=== PATIENT | female | born 1955 | race African-American/Black ===

== ENCOUNTER 2020-06-29 12:33 | Outpatient (REF) | payer OTHER, SELFPAY ==
[2020-06-29 14:07] LABS: Alanine Aminotransferase 13 U/L (0-31); Albumin Level 4.3 g/dL (3.5-5.0); Alkaline Phosphatase 80 U/L (39-117); Anion Gap 11 (12-20); Aspartate Amino Transferase 17 U/L (5-31); Bilirubin Total 0.8 mg/dL (0.0-1.0); Blood Urea Nitrogen 20 mg/dL (9-16); Calcium 9.5 mg/dL (8.4-10.2); Carbon Dioxide 29 mmol/L (22-29); Chloride 106 mmol/L (96-108); Estimated Glomerular Filt Rate > 60; Glucose Random 81 mg/dL (60-115); Potassium 4.2 mmol/L (3.3-5.1); Sodium 142 mmol/L (135-145)
[2020-07-04 13:22] LABS: Vitamin D 25-OH, D2 <4 ng/mL; Vitamin D 25-OH, D3 12 ng/mL; Vitamin D 25-OH, Total 12 ng/mL (30-100)
== END 2020-06-29 12:34 | disposition home or self-care (01) ==
LOC: HO.LAB 12:33
PROVIDERS: PCP Internal Medicine; Visit Provider Student in an Organized Health Care Education/Training Program
DX: M81.0 Age-related osteoporosis without current pathological fracture (principal); M17.0 Bilateral primary osteoarthritis of knee; Z88.5 Allergy status to narcotic agent; Z88.0 Allergy status to penicillin; Z88.2 Allergy status to sulfonamides; Z79.899 Other long term (current) drug therapy
CPT/HCPCS: 36415; 80053; 82306; 99212

== ENCOUNTER 2020-12-11 11:00 | Outpatient (REF) | payer OTHER, SELFPAY ==
--- NOTE | ~2020-12-11 | XR_ITS ---
EXAMINATION: CR X-RAY HAND BILATERAL. CLINICAL INFORMATION: Joint pain. COMPARISON: None TECHNIQUE: 3 views each of the bilateral hands were obtained. FINDINGS: Left: Mild to interphalangeal degenerative joint changes are seen. Moderate first carpometacarpal degenerative joint changes are seen. There is no acute fracture or dislocation. The carpal bones are normally aligned. The distal radius and ulna are intact. The soft tissues are unremarkable. Right: Minimal distal interphalangeal degenerative joint changes are seen most pronounced in the second digit. There is no acute fracture or dislocation. The carpal bones are normally aligned. The distal radius and ulna are intact. The soft tissues are unremarkable. XR/XR hand LT min 3V IMPRESSION: Degenerative joint changes bilaterally, more pronounced in the left hand suggest osteoarthritis.
--- NOTE | ~2020-12-11 | XR_ITS ---
EXAMINATION: CR X-RAY HAND BILATERAL. CLINICAL INFORMATION: Joint pain. COMPARISON: None TECHNIQUE: 3 views each of the bilateral hands were obtained. FINDINGS: Left: Mild to interphalangeal degenerative joint changes are seen. Moderate first carpometacarpal degenerative joint changes are seen. There is no acute fracture or dislocation. The carpal bones are normally aligned. The distal radius and ulna are intact. The soft tissues are unremarkable. Right: Minimal distal interphalangeal degenerative joint changes are seen most pronounced in the second digit. There is no acute fracture or dislocation. The carpal bones are normally aligned. The distal radius and ulna are intact. The soft tissues are unremarkable. XR/XR hand RT min 3V IMPRESSION: Degenerative joint changes bilaterally, more pronounced in the left hand suggest osteoarthritis.
== END 2020-12-11 11:01 | disposition home or self-care (01) ==
LOC: HO.XRAY 11:00
PROVIDERS: PCP Internal Medicine; Visit Provider Nurse Practitioner Family
DX: M25.541 Pain in joints of right hand (principal); M25.542 Pain in joints of left hand; M81.0 Age-related osteoporosis without current pathological fracture; M17.0 Bilateral primary osteoarthritis of knee
CPT/HCPCS: 73130; 99212

== ENCOUNTER 2021-01-14 12:54 | Outpatient (REF) | payer OTHER, SELFPAY ==
[2021-01-14 16:33] LABS: Alanine Aminotransferase 18 U/L (0-31); Albumin Level 4.3 g/dL (3.5-5.0); Alkaline Phosphatase 83 U/L (39-117); Anion Gap 12 (12-20); Aspartate Amino Transferase 20 U/L (5-31); Bilirubin Total 0.7 mg/dL (0.0-1.0); Blood Urea Nitrogen 13 mg/dL (9-16); Calcium 9.6 mg/dL (8.4-10.2); Carbon Dioxide 27 mmol/L (22-29); Chloride 105 mmol/L (96-108); Estimated Glomerular Filt Rate > 60; Glucose Random 84 mg/dL (60-115); Potassium 4.1 mmol/L (3.3-5.1); Sodium 140 mmol/L (135-145); Total Protein 7.1 g/dL (6.5-8.0)
[2021-01-14 16:48] LABS: Vitamin D 25-OH Total 10.4 ng/mL (>30)
== END 2021-01-14 12:55 | disposition home or self-care (01) ==
LOC: HO.LAB 12:54
PROVIDERS: PCP Internal Medicine; Visit Provider Nurse Practitioner Family
DX: M17.0 Bilateral primary osteoarthritis of knee (principal); M81.0 Age-related osteoporosis without current pathological fracture; M25.541 Pain in joints of right hand; M25.542 Pain in joints of left hand
CPT/HCPCS: 36415; 80053; 82306; 99212

== ENCOUNTER 2021-07-23 10:31 | Outpatient (REF) | payer OTHER, SELFPAY ==
[2021-07-23 12:53] LABS: Alanine Aminotransferase 19 U/L (0-31); Albumin Level 4.2 g/dL (3.5-5.0); Alkaline Phosphatase 88 U/L (39-117); Anion Gap 12 (12-20); Aspartate Amino Transferase 20 U/L (5-31); Bilirubin Total 0.8 mg/dL (0.0-1.0); Blood Urea Nitrogen 18 mg/dL (9-16); Calcium 9.6 mg/dL (8.4-10.2); Carbon Dioxide 28 mmol/L (22-29); Chloride 106 mmol/L (96-108); Estimated Glomerular Filt Rate > 60; Glucose Random 81 mg/dL (60-115); Potassium 4.2 mmol/L (3.3-5.1); Sodium 142 mmol/L (135-145); Total Protein 7.1 g/dL (6.5-8.0)
[2021-07-23 13:15] LABS: Vitamin D 25-OH Total 9.9 ng/mL (>30)
== END 2021-07-23 10:32 | disposition home or self-care (01) ==
LOC: HO.LAB 10:31
PROVIDERS: PCP Internal Medicine; Visit Provider Nurse Practitioner Family
DX: M81.0 Age-related osteoporosis without current pathological fracture (principal); M17.0 Bilateral primary osteoarthritis of knee; M79.642 Pain in left hand; M79.641 Pain in right hand; Z79.890 Hormone replacement therapy
CPT/HCPCS: 36415; 80053; 82306; 99212

== ENCOUNTER → 2021-07-30 15:55 | Outpatient (BNVA) | payer OTHER, SELFPAY | PROVIDERS: PCP Internal Medicine; Visit Provider Nurse Practitioner Family | DX: M17.0 Bilateral primary osteoarthritis of knee (principal); M25.549 Pain in joints of unspecified hand; M25.511 Pain in right shoulder; M19.90 Unspecified osteoarthritis, unspecified site; M47.812 Spondylosis without myelopathy or radiculopathy, cervical region; M47.816 Spondylosis without myelopathy or radiculopathy, lumbar region; M81.0 Age-related osteoporosis without current pathological fracture; M62.830 Muscle spasm of back | CPT/HCPCS: 99202 ==

== ENCOUNTER 2021-08-27 14:38 | Outpatient (REF) | payer OTHER, SELFPAY ==
--- NOTE | ~2021-08-27 | XR_ITS ---
EXAMINATION: XR KNEE, RIGHT XR KNEE, LEFT CLINICAL INFORMATION: Bilateral knee pain COMPARISON: Bilateral knee radiographs 05/14/2016. TECHNIQUE: Examination is imaged in 3 views. There are total of 6 views. FINDINGS: Right: Normal bony mineralization. No fracture, dislocation, or joint effusion. There is mild narrowing medial knee joint compartment, increased since prior exam 05/14/2016. No erosive change. No definite chondrocalcinosis. Axial view patella shows no lateralization or tilting or joint narrowing. No is borderline spurring at quadriceps insertion follow-up, not previously demonstrated. Left: Normal bony mineralization. No fracture, dislocation, or joint effusion. There is borderline narrowing medial knee joint compartment. No erosive change. No definite chondrocalcinosis. Axial view patella shows no lateralization or tilting or joint narrowing. XR/XR knee LT 3V IMPRESSION: Right: -Mild narrowing medial knee joint compartment, increased from prior exam 2017. -Borderline spurring at quadriceps insertion patella, new. Left: -Borderline narrowing medial knee joint compartment.
--- NOTE | ~2021-08-27 | XR_ITS ---
EXAMINATION: XR KNEE, RIGHT XR KNEE, LEFT CLINICAL INFORMATION: Bilateral knee pain COMPARISON: Bilateral knee radiographs 05/14/2016. TECHNIQUE: Examination is imaged in 3 views. There are total of 6 views. FINDINGS: Right: Normal bony mineralization. No fracture, dislocation, or joint effusion. There is mild narrowing medial knee joint compartment, increased since prior exam 05/14/2016. No erosive change. No definite chondrocalcinosis. Axial view patella shows no lateralization or tilting or joint narrowing. No is borderline spurring at quadriceps insertion follow-up, not previously demonstrated. Left: Normal bony mineralization. No fracture, dislocation, or joint effusion. There is borderline narrowing medial knee joint compartment. No erosive change. No definite chondrocalcinosis. Axial view patella shows no lateralization or tilting or joint narrowing. XR/XR knee RT 3V IMPRESSION: Right: -Mild narrowing medial knee joint compartment, increased from prior exam 2017. -Borderline spurring at quadriceps insertion patella, new. Left: -Borderline narrowing medial knee joint compartment.
== END 2021-08-27 14:39 | disposition home or self-care (01) ==
LOC: HO.XRAY 14:38
PROVIDERS: PCP Internal Medicine; Visit Provider Nurse Practitioner Family
DX: M17.0 Bilateral primary osteoarthritis of knee (principal); M25.511 Pain in right shoulder
CPT/HCPCS: 73562; 99212

== ENCOUNTER → 2021-09-06 10:57 | Outpatient (BNVA) | payer OTHER, SELFPAY | PROVIDERS: PCP Internal Medicine; Visit Provider Nurse Practitioner Family | DX: M25.551 Pain in right hip (principal) | CPT/HCPCS: Q3014 ==

== ENCOUNTER 2021-09-09 11:25 | Outpatient (REF) | payer OTHER, SELFPAY ==
--- NOTE | ~2021-09-09 | XR_ITS ---
EXAMINATION: XR HIP, RIGHT CLINICAL INFORMATION: Pain. COMPARISON: None TECHNIQUE: Two views of the right hip. AP view pelvis FINDINGS: AP pelvis: There is normal symmetry of bilateral hip joints and SI joints. No visible fracture or dislocation seen. No bony abnormality seen involving the pelvic bones. Right hip: The right hip joint space is maintained normal. No bony erosive changes, loose bodies, fracture or dislocation. The soft tissues are normal. XR/XR hip RT w PEL1V IMPRESSION: Unremarkable AP pelvis and right hip exam.
== END 2021-09-09 11:26 | disposition home or self-care (01) ==
LOC: HO.XRAY 11:25
PROVIDERS: PCP Internal Medicine; Visit Provider Nurse Practitioner Family
DX: M25.551 Pain in right hip (principal)
CPT/HCPCS: 73502

== ENCOUNTER 2021-10-01 14:05 | Outpatient (REF) | payer OTHER, SELFPAY ==
--- NOTE | ~2021-10-01 | XR_ITS ---
EXAMINATION: XR LUMBOSACRAL SPINE WITH OBLIQUES CLINICAL INFORMATION: Lumbar radiculopathy. COMPARISON: None TECHNIQUE: AP, both oblique, and lateral views of the lumbar spine. Lateral view of the lumbosacral junction. FINDINGS: There is normal lumbar lordosis. The vertebral heights are normal. There is grade 1 anterolisthesis L5 over S1. Rest of the vertebral alignment is normal. There is minimal loss of L5-S1 disc level. Rest of the disc heights are normal. On oblique views there is no pars defect No focal lytic or sclerotic process seen. There is mild right L5-S1 facet joint arthropathy. SI joints are symmetrical and normal. Solitary phlebolith is seen in the pelvis. There is acute sacrococcygeal kyphotic deformity likely old injury. XR/XR lumbar spine 4V min IMPRESSION: Grade 1 anterolisthesis L5 over S1 with minimal loss of L5-S1 disc height. No visible acute fracture or dislocation seen. Mild right L5-S1 facet joint arthropathy.
== END 2021-10-01 14:06 | disposition home or self-care (01) ==
LOC: HO.XRAY 14:05
PROVIDERS: PCP Internal Medicine; Visit Provider Psychiatry & Neurology Neurology
DX: M54.16 Radiculopathy, lumbar region (principal)
CPT/HCPCS: 72110

== ENCOUNTER 2021-10-30 14:03 | Outpatient (REF) | payer OTHER, SELFPAY ==
[2021-10-30 14:54] LABS: Alanine Aminotransferase 24 U/L (0-31); Albumin Level 4.4 g/dL (3.5-5.0); Alkaline Phosphatase 87 U/L (39-117); Anion Gap 12 (12-20); Aspartate Amino Transferase 25 U/L (5-31); Bilirubin Total 1.2 mg/dL (0.0-1.0); Blood Urea Nitrogen 14 mg/dL (9-16); Calcium 9.4 mg/dL (8.4-10.2); Carbon Dioxide 27 mmol/L (22-29); Chloride 109 mmol/L (96-108); Estimated Glomerular Filt Rate > 60; Glucose Random 95 mg/dL (60-115); Potassium 4.4 mmol/L (3.3-5.1); Sodium 144 mmol/L (135-145); Total Protein 7.1 g/dL (6.5-8.0)
[2021-10-30 15:13] LABS: Vitamin D 25-OH Total 16.6 ng/mL (>30)
== END 2021-10-30 14:04 | disposition home or self-care (01) ==
LOC: HO.LAB 14:03
PROVIDERS: PCP Internal Medicine; Visit Provider Nurse Practitioner Family
DX: M81.0 Age-related osteoporosis without current pathological fracture (principal)
CPT/HCPCS: 36415; 80053; 82306

== ENCOUNTER → 2022-01-22 11:57 | Outpatient (BNVA) | payer OTHER, SELFPAY | PROVIDERS: PCP Internal Medicine; Visit Provider Nurse Practitioner Family | DX: M81.0 Age-related osteoporosis without current pathological fracture (principal); M17.0 Bilateral primary osteoarthritis of knee; M25.549 Pain in joints of unspecified hand | CPT/HCPCS: 99212 ==

== ENCOUNTER → 2022-09-11 15:23 | Outpatient (BNVA) | payer OTHER, SELFPAY | PROVIDERS: PCP Internal Medicine; Visit Provider Nurse Practitioner Family | DX: M19.041 Primary osteoarthritis, right hand (principal); M19.042 Primary osteoarthritis, left hand; M47.816 Spondylosis without myelopathy or radiculopathy, lumbar region; M81.0 Age-related osteoporosis without current pathological fracture; M17.0 Bilateral primary osteoarthritis of knee | CPT/HCPCS: 99212 ==

== ENCOUNTER 2022-09-17 14:52 | Outpatient (REF) | payer OTHER, SELFPAY ==
[2022-09-17 15:48] LABS: Alanine Aminotransferase 21 U/L (0-31); Albumin Level 4.3 g/dL (3.5-5.0); Alkaline Phosphatase 94 U/L (39-117); Anion Gap 11 (12-20); Aspartate Amino Transferase 22 U/L (5-31); Bilirubin Total 1.1 mg/dL (0.0-1.0); Blood Urea Nitrogen 15 mg/dL (9-16); Calcium 9.6 mg/dL (8.4-10.2); Carbon Dioxide 27 mmol/L (22-29); Chloride 108 mmol/L (96-108); Estimated Glomerular Filt Rate > 60; Glucose Random 85 mg/dL (60-115); Potassium 4.2 mmol/L (3.3-5.1); Sodium 142 mmol/L (135-145)
[2022-09-17 16:10] LABS: Amphetamine Screen Urine Not Detected (Not Detect); Barbiturates, Urine Not Detected (Not Detect); Benzodiazepines Screen Urine Not Detected (Not Detect); Cannabinoid Screen Urine Not Detected (Not Detect); Cocaine Screen Urine Not Detected (Not Detect); Fentanyl, urine Not Detected (Not Detect); Opiate Screen Urine Not Detected (Not Detect); Phencyclidine Screen Urine Not Detected (Not Detect)
[2022-09-23 08:34] LABS: Tramadol, Ur NEGATIVE
[2022-09-23 08:35] LABS: Desmethyltramadol, Ur NEGATIVE
== END 2022-09-17 14:53 | disposition home or self-care (01) ==
LOC: HO.LAB 14:52
PROVIDERS: PCP Internal Medicine; Visit Provider Nurse Practitioner Family
DX: Z51.81 Encounter for therapeutic drug level monitoring (principal); Z79.899 Other long term (current) drug therapy
CPT/HCPCS: 80053; 80307; 80373

== ENCOUNTER 2023-02-25 13:58 | Outpatient (AMB) | payer OTHER, SELFPAY ==
[2023-02-25 14:00] VITALS: BP 90/60; PULSE 74; TEMP 36.1; O2SAT 97; BMI 24.0
--- NOTE | 2023-02-25 14:00 | MHC.OFFVIS ---
Intake Vital Signs 02/25/23 14:00 Height 5 ft 4 in Weight 139 lb 8.842 oz BMI 24.0 BP 90/60 Blood Pressure Location Rt brachial Position Sitting Pulse 74 Pulse Source Pulse Oximeter Temp 97 F Temp Source Skin Pulse Oximetry (%) 97 Oxygen Delivery Method Room Air Intake Visit Reasons: Osteoarthritis Intake Note: Patient presents today to follow up on OA. c/o raymond hand pain. Would like to discuss treatment or therapy. Reports waking up everyday with pain and sweilling. c/o raymond posterior knee pain Director Outpatient Services Required: No Accompanied by: Self / Same As Patient Allergies penicillin V Allergy (Intermediate, Verified 02/25/23 14:03) Rash Sulfa (Sulfonamide Antibiotics) Allergy (Intermediate, Verified 02/25/23 14:03) Rash morphine Allergy (Mild, Verified 02/25/23 14:03) Dizziness HPI HPI Comments History of Present Illness Details Patient is a 67yoF with a PMH of vitiligo, OA in her knees and osteoporosis who presents for follow-up of joint pain. Last seen in January 2022. Patient continues to follow with Dr Carnes in pain management for right sciatic pain, she had a cortisone shot November 17 with good effect. She reports return of her pain in the same spot where she had the injection. Her pain is aching and throbbing in the right lower back and is worse at night. She has an appt with Dr Carnes in October. She is using ice and tramadol for pain control. Patient reports she underwent left knee cap and meniscus surgery with [facility] in March 2022. She stated her pain and swelling post op was worse with physical therapy so she stopped. She states the left knee is feeling better, she denies pain or swelling. She reports that her right knee pain is stable. Patient reports she had a visit with HERB GROWER today. She states she stopped evista and was started on a new medication for osteoporosis today. She is not sure of the name. She reports continued chronic bilateral hand pain that is worse with use due to her osteoarthritis. She admits to stiffness and pain that is worse in the morning. Denies swelling. She continues to manage her symptoms with Tylenol and tramadol. She follows with vascular for varicose veins. [facility] Surgical History Hx of knee surgery H/O arthroscopic knee surgery Hx of section Hx of tonsillectomy Hx of hysterectomy Hx of appendectomy Family History Father Cancer Mother CVD (cardiovascular disease) Social History Alcohol intake: never Patient Tobacco Use Status: Never used Tobacco Review of Systems Const All systems reviewed & are unremarkable except as noted in HPI and below Physical Exam Vital Signs: Last Vital Signs Temp 97 F 02/25/23 14:00 Pulse 74 02/25/23 14:00 BP 90/60 02/25/23 14:00 Pulse Ox 97 02/25/23 14:00 Oxygen Delivery Method Room Air 02/25/23 14:00 BMI result Body Mass Index 24.0 APPEARANCE: Patient in no acute distress EYES: no redness, pupils equal, round and reactive to light, eyelids normal EARS: External ear normal, canal clear and tympanic membrane normal. NOSE/SINUS: Airflow through both nares, no nasal discharge, no bleeding THROAT: Oral mucosa moist, no ulcerations NECK: No thyromegaly or masses, no adenopathy, trachea midline. HEART: Regular rhythm, S1-S2 heard, no murmurs, rubs or gallops. LUNG: Clear to auscultation, respiratory rate regular non-labored ABD: Abdomen soft, nontender. EXTREMITIES: No edema, no calf tenderness, normal peripheral pulses. NEURO: Oriented and alert x3. No focal weakness. Gait normal. SKIN: No inflammatory or neoplastic lesions. Normal color and turgor. Vitiligo. JOINT EXAM:?? Cervical Spine:? Full range of motion without pain; no tenderness. Thoracic Spine:? No scoliosis.? No tenderness on palpation. Lumbar Spine:? Alignment normal.? Pain with flexion and extension in the right lower lumbar area with tenderness to palpation over the right lower back. No erythema, swelling or warmth. Hands: LEFT:? Normal pain-free range of motion without swelling, increased warmth or erythema. Able to make a full fist and has a good housekeeping lead strength. Heberden's nodes in all digits, tenderness to palpation of the DIPs. RIGHT: Normal pain-free range of motion without swelling, increased warmth or erythema. Able to make a full fist and has a good housekeeping lead strength. Slight joint enlargement of MCP 2 and 3. Heberden's noted in all digits, tenderness to palpation of the DIPs. Wrists:? Normal pain-free range of motion without tenderness, swelling, increased warmth or erythema. Elbows: Normal pain-free range of motion without tenderness, swelling, increased warmth or erythema. Shoulders:?? Full range of motion without pain. No tenderness, weakness, swelling, increased warmth or erythema. Hips:? Full range of motion without pain. Hip bursa:? No tenderness. Knees:? LEFT: Normal pain-free range of motion. No tenderness, swelling, increased warmth or erythema.? There is no effusion or crepitation RIGHT: Normal pain-free range of motion without tenderness, swelling, increased warmth or erythema. No effusion or crepitation Ankles:? Normal pain-free range of motion without tenderness, swelling, increased warmth or erythema. Feet:? Normal pain-free range of motion without tenderness, swelling, increased warmth or erythema. Assessment & Plan Assessment & Plan (1) Osteoarthritis of hands, bilateral: Code(s): M19.041 - Primary osteoarthritis, right hand; M19.042 - Primary osteoarthritis, left hand Qualifiers: Osteoarthritis type: primary Qualified Code(s): M19.041 - Primary osteoarthritis, right hand; M19.042 - Primary osteoarthritis, left hand (2) Primary osteoarthritis of knees, bilateral: Code(s): M17.0 - Bilateral primary osteoarthritis of knee Plan: Stable. 25 minute spent reviewing chart, evaluating patient and documenting. (3) Lumbar spondylosis: Code(s): M47.816 - Spondylosis without myelopathy or radiculopathy, lumbar region Plan: Received injection in her lower back with last year with Dr. Carnes with good effect. Now with return of pain. On exam she has tenderness to palpation over the right aspect of the lumbar spine. Recommend patient continue tramadol, heat, stretching and follow-up for injections as scheduled. Plan Patient with continued chronic OA to bilateral hands, knees and lower back. No synovitis on exam. Hand X-rays November 2020 showed degenerative changes bilaterally. Subsequent Xrays for Knees, hip and Pelvis in August 2021 and September 2021 also shows mild OA to the knees and normal for the Hip/Pelvis She will continue tramadol, Tylenol, heat. Advised patient paraffin wax may be helpful for her symptoms. Discussed at length with patient the value of low impact/muscle strengthening exercises and stretching to the joint strength and stability. The last available set of labs from 08/2022 for CBC and CMP were grossly normal. Will update CMP and CBC for next visit. Follow-up 6 months or sooner if needed. Orders: Orders Comprehensive Met. Panel 02/25/23 M19.041 - Primary osteoarthritis, right hand, M19.042 - Primary osteoarthritis, left hand, M25.561 - Pain in right knee, M25.562 - Pain in left knee, M81.0 - Age-related osteoporosis without current pathological fracture Erythrocyte Sedimentation Rate 02/25/23 M19.041 - Primary osteoarthritis, right hand, M19.042 - Primary osteoarthritis, left hand, M25.561 - Pain in right knee, M25.562 - Pain in left knee, M81.0 - Age-related osteoporosis without current pathological fracture C Reactive Protein 02/25/23 M19.041 - Primary osteoarthritis, right hand, M19.042 - Primary osteoarthritis, left hand, M25.561 - Pain in right knee, M25.562 - Pain in left knee, M81.0 - Age-related osteoporosis without current pathological fracture Complete Blood Count Auto Diff 02/25/23 M19.041 - Primary osteoarthritis, right hand, M19.042 - Primary osteoarthritis, left hand, M25.561 - Pain in right knee, M25.562 - Pain in left knee, M81.0 - Age-related osteoporosis without current pathological fracture Vitamin D 25-OH (D2 and D3) 09/18/22 M81.0 - Age-related osteoporosis without current pathological fracture Coding Level of Care Code Est Pt Level 3 (89650) Diagnoses Primary osteoarthritis of both hands M19.041; M19.042 Osteoarthritis type: primary Primary osteoarthritis of knees, bilateral M17.0 Lumbar spondylosis M47.816
== END 2023-02-25 14:46 | disposition home or self-care (01) ==
PROVIDERS: PCP Internal Medicine; Visit Provider Nurse Practitioner Family
DX: M19.041 Primary osteoarthritis, right hand (principal); M19.042 Primary osteoarthritis, left hand; M17.0 Bilateral primary osteoarthritis of knee; M47.816 Spondylosis without myelopathy or radiculopathy, lumbar region
CPT/HCPCS: 99213

== ENCOUNTER → 2023-02-25 13:58 | Outpatient (BNVA) | payer OTHER, SELFPAY | PROVIDERS: PCP Internal Medicine; Visit Provider Nurse Practitioner Family | DX: M17.0 Bilateral primary osteoarthritis of knee (principal); M19.041 Primary osteoarthritis, right hand; M19.042 Primary osteoarthritis, left hand; M47.816 Spondylosis without myelopathy or radiculopathy, lumbar region | CPT/HCPCS: 99212 ==

== ENCOUNTER 2023-08-26 13:00 | Outpatient (REF) | payer OTHER, SELFPAY ==
--- NOTE | ~2023-08-26 | MR_ITS ---
EXAMINATION: MR LUMBAR SPINE WITHOUT CONTRAST CLINICAL INFORMATION: Lumbar radiculopathy. Right lower extremity pain. COMPARISON: Lumbar spine radiograph 10/01/2021. TECHNIQUE: MRI of the lumbar spine was obtained using routine sequences without contrast. FINDINGS: There is slight grade 1 anterolisthesis of L5 on S1. Alignment is otherwise normal. Vertebral body heights are preserved. There are type II degenerative endplate changes at L5-S1. Bone marrow signal intensity is otherwise unremarkable. There is disc desiccation at multiple levels without substantial loss of intervertebral disc height. The tip of the conus medullaris is located at L1. No mass effect on the conus. Visualized distal cord signal intensity is normal. At L1-L2 there is a right central annular fissure associated with a slightly bulging disc. No canal stenosis. No mass effect on the traversing or foraminal nerve roots. At L2-L3 there is a left subarticular to foraminal protrusion superimposed upon a bulging disc. Bilateral facet degenerative change. No canal stenosis. Subtle abutment of the left traversing L3 nerve roots. No foraminal nerve root compression. At L3-L4 there is a bulging disc. Bilateral facet degenerative change. No canal stenosis. No mass effect on the traversing or foraminal nerve roots. At L4-L5 there is an asymmetrically bulging disc to the left. Bilateral facet degenerative change. No canal stenosis. Asymmetric narrowing of the left subarticular zone causes abutment and possible compression of the left traversing L5 nerve roots. No foraminal nerve root compression. At L5-S1 there is a diffusely bulging disc. Bilateral facet degenerative change. No canal stenosis. No mass effect on the traversing or foraminal nerve roots. Limited visualization of the retroperitoneal anatomy reveals no abnormal finding. Psoas and paraspinal muscle groups are symmetric. MR/MR lumbar spine wo con IMPRESSION: There is multilevel degenerative spondylosis of the lumbar spine with slight grade 1 anterolisthesis of L5 on S1 related to facet degenerative changes at this level. No canal stenosis. Asymmetric narrowing of the left subarticular zone at L4-L5 causes abutment and possible compression of the left traversing L5 nerve roots. There is also subtle abutment of the left traversing L3 nerve roots related to degenerative changes at L2-L3. Otherwise no substantial mass effect on the traversing or foraminal nerve roots elsewhere within the lumbar spine.
== END 2023-08-26 13:01 | disposition home or self-care (01) ==
LOC: HO.MRI 13:00
PROVIDERS: PCP Internal Medicine; Visit Provider Psychiatry & Neurology Neurology
DX: M54.16 Radiculopathy, lumbar region (principal); M19.041 Primary osteoarthritis, right hand; M19.042 Primary osteoarthritis, left hand; M17.0 Bilateral primary osteoarthritis of knee
CPT/HCPCS: 72148; 99212

== ENCOUNTER 2023-08-26 13:56 | Outpatient (AMB) | payer OTHER, SELFPAY ==
--- NOTE | 2023-08-26 14:03 | MHC.OFFVIS ---
Vital Signs 08/26/23 14:08 Height 5 ft 4 in Weight 134 lb 7.712 oz BMI 23.1 BP 110/78 Blood Pressure Location Rt brachial Position Sitting Pulse 73 Pulse Source Pulse Oximeter Pulse Oximetry (%) 96 Oxygen Delivery Method Room Air Intake Visit Reasons: RA Intake Note: Patient last seen on 02/25/23, presents to office today for RA follow up and test results. Patient c/o left calf pain that has been present for years but worsened since the last month. Dry Cleaner Helper Required: No Accompanied by: Self / Same As Patient Allergies penicillin V Allergy (Intermediate, Verified 08/26/23 14:08) Rash Sulfa (Sulfonamide Antibiotics) Allergy (Intermediate, Verified 08/26/23 14:08) Rash morphine Allergy (Mild, Verified 08/26/23 14:08) Dizziness HPI Comments Details: Patient is a 67yoF with a PMH of vitiligo, OA in her knees and osteoporosis who presents for follow-up of joint pain. She feels fairly stable at this visit. --continues with total body pain, more to right leg, cramps; has had therapy. --has not seen pain management since last visit --also has right sciatica that can last up to 2 or three weeks. 02/2023: Sandra Patient is a 67yoF with a PMH of vitiligo, OA in her knees and osteoporosis who presents for follow-up of joint pain. Last seen in January 2022. Patient continues to follow with Dr Carnes in pain management for right sciatic pain, she had a cortisone shot November 17 with good effect. She reports return of her pain in the same spot where she had the injection. Her pain is aching and throbbing in the right lower back and is worse at night. She has an appt with Dr Carnes in October. She is using ice and tramadol for pain control. Patient reports she underwent left knee cap and meniscus surgery with [facility] in March 2022. She stated her pain and swelling post op was worse with physical therapy so she stopped. She states the left knee is feeling better, she denies pain or swelling. She reports that her right knee pain is stable. Patient reports she had a visit with DIRECTOR OF DEVELOPMENT AND MARKETING today. She states she stopped evista and was started on a new medication for osteoporosis today. She is not sure of the name. She reports continued chronic bilateral hand pain that is worse with use due to her osteoarthritis. She admits to stiffness and pain that is worse in the morning. Denies swelling. She continues to manage her symptoms with Tylenol and tramadol. She follows with vascular for varicose veins. [facility] Medical History (Updated 09/14/23 @ 22:25 by ROULA Marquis) Hypovitaminosis D Surgical History Hx of knee surgery H/O arthroscopic knee surgery Hx of section Hx of tonsillectomy Hx of hysterectomy Hx of appendectomy Family History Father Cancer Mother CVD (cardiovascular disease) Social History Alcohol intake: never Patient Tobacco Use Status: Never used Tobacco Review of Systems Const All systems reviewed & are unremarkable except as noted in HPI and below Physical Exam Vital Signs: Last Vital Signs Pulse 73 08/26/23 14:08 BP 110/78 08/26/23 14:08 Pulse Ox 96 08/26/23 14:08 Oxygen Delivery Method Room Air 08/26/23 14:08 BMI result Body Mass Index 23.1 APPEARANCE: Patient in no acute distress EYES: no redness, eyelids normal HEART: Regular rhythm, S1-S2 heard, no murmurs, rubs or gallops. LUNG: Clear to auscultation, respiratory rate regular non-labored EXTREMITIES: No edema, no calf tenderness, normal peripheral pulses. NEURO: Oriented and alert x3. No focal weakness. Gait normal. SKIN: No inflammatory or neoplastic lesions. Normal color and turgor. Vitiligo. JOINT EXAM:?? Cervical Spine:? Full range of motion without pain; no tenderness. Thoracic Spine:? No scoliosis.? No tenderness on palpation. Lumbar Spine:? Alignment normal.? Pain with flexion and extension in the right lower lumbar area with tenderness to palpation over the right lower back. No erythema, swelling or warmth. Hands: LEFT:? Normal pain-free range of motion without swelling, increased warmth or erythema. Able to make a full fist and has a good electric blanket packer strength. Heberden's nodes in all digits, tenderness to palpation of the DIPs. RIGHT: Normal pain-free range of motion without swelling, increased warmth or erythema. Able to make a full fist and has a good electric blanket packer strength. Slight joint enlargement of MCP 2 and 3. Heberden's noted in all digits, tenderness to palpation of the DIPs. Wrists:? Normal pain-free range of motion without tenderness, swelling, increased warmth or erythema. Elbows: Normal pain-free range of motion without tenderness, swelling, increased warmth or erythema. Shoulders:?? Full range of motion without pain. No tenderness, weakness, swelling, increased warmth or erythema. Hips:? Full range of motion without pain. Hip bursa:? No tenderness. Knees:? LEFT: Normal pain-free range of motion. No tenderness, swelling, increased warmth or erythema.? There is no effusion or crepitation RIGHT: Normal pain-free range of motion without tenderness, swelling, increased warmth or erythema. No effusion or crepitation Ankles:? Normal pain-free range of motion without tenderness, swelling, increased warmth or erythema. Feet:? Normal pain-free range of motion without tenderness, swelling, increased warmth or erythema. Results Reviewed Results Reviewed: 08/20/2023 Vit D 8, ESR/CRP WNL Assessment & Plan Assessment & Plan (1) Osteoarthritis of hands, bilateral: Code(s): M19.041 - Primary osteoarthritis, right hand; M19.042 - Primary osteoarthritis, left hand Category: Medical Qualifiers: Osteoarthritis type: primary Qualified Code(s): M19.041 - Primary osteoarthritis, right hand; M19.042 - Primary osteoarthritis, left hand (2) Primary osteoarthritis of knees, bilateral: Code(s): M17.0 - Bilateral primary osteoarthritis of knee Category: Medical Plan: (3) Lumbar spondylosis: Code(s): M47.816 - Spondylosis without myelopathy or radiculopathy, lumbar region Category: Medical Plan: Received injection in her lower back [address] Carnes with good effect. Now with return of pain. On exam she has tenderness to palpation over the right aspect of the lumbar spine. Recommend patient continue tramadol, heat, stretching and follow-up for injections as scheduled. (4) Hypovitaminosis D: Code(s): E55.9 - Vitamin D deficiency, unspecified Category: Medical Plan #OA/Chronic Pain:Patient with continued chronic OA to bilateral hands, knees and lower back. No synovitis on exam. Hand X-rays November 2020 showed degenerative changes bilaterally. Subsequent Xrays for Knees, hip and Pelvis in August 2021 and September 2021 also shows mild OA to the knees and normal for the Hip/Pelvis She will continue tramadol, Tylenol, heat. Discussed at length with patient the value of low impact/muscle strengthening exercises and stretching to the joint strength and stability. #Hypo Vit D: Start Vit D3 supplements 50 mcg QD. Will update CMP and CBC for next visit. Follow-up 6 months or sooner if needed. 20 minute spent reviewing chart, evaluating patient and documenting. Medications: New meloxicam 15 mg PO DAILY 90 tabs 0RF M19.041 - Primary osteoarthritis, right hand, M19.042 - Primary osteoarthritis, left hand Discontinued cholecalciferol (vitamin D3) Discontinued Reason: Doctor's Order 50 mcg PO DAILY 90 tabs 1RF M81.0 - Age-related osteoporosis without current pathological fracture Coding Level of Care Code Est Pt Level 3 (46563) Complex EM visit Add On G2211 Diagnoses Primary osteoarthritis of both hands M19.041; M19.042 Osteoarthritis type: primary Primary osteoarthritis of knees, bilateral M17.0 Lumbar spondylosis M47.816 Hypovitaminosis D E55.9
[2023-08-26 14:08] VITALS: BP 110/78; PULSE 73; O2SAT 96; BMI 23.1
== END 2023-08-26 14:58 | disposition home or self-care (01) ==
PROVIDERS: PCP Internal Medicine; Visit Provider Nurse Practitioner Family
DX: M19.041 Primary osteoarthritis, right hand (principal); M19.042 Primary osteoarthritis, left hand; M17.0 Bilateral primary osteoarthritis of knee; M47.816 Spondylosis without myelopathy or radiculopathy, lumbar region; E55.9 Vitamin D deficiency, unspecified
CPT/HCPCS: 99213; G2211

== ENCOUNTER 2023-12-04 13:24 | Outpatient (REF) | payer OTHER, SELFPAY ==
[2023-12-04 13:39] LABS: MANUAL DIFF FLAG NO
[2023-12-04 14:07] LABS: Basophils Percent Auto 0.7 % (0-2); Eosinophils Absolute Auto 0.1 X10*3/uL (0.0-0.4); Eosinophils Percent Auto 2.4 % (0-4); Hematocrit 38.3 % (37.0-47.0); Hemoglobin 13.1 g/dl (12.0-16.0); Imm Gran Abs Auto 0.01 X10*3/uL (0.00-0.03); Imm Gran Pct Auto 0.2 % (0.0-0.4); Lymphocytes Absolute Auto 1.5 X10*3/uL (1.2-4.9); Lymphocytes Percent Auto 32.5 % (20-40); Mean Corpuscular HGB Conc 34.2 g/dl (31.0-35.0); Mean Corpuscular Hemoglobin 30.8 pg (27.0-33.0); Mean Corpuscular Volume 90.1 fL (80.0-98.0); Mean Platelet Volume 9.9 fL (9.4-12.3); Monocytes Absolute Auto 0.4 X10*3/uL (0.1-1.2); Monocytes Percent Auto 9.2 % (2-11); Neutrophils Absolute Auto 2.5 x10*3/uL (2.0-8.3); Platelet Count 226 X10*3/uL (160-400); Red Blood Count 4.25 X10*6/uL (4.20-5.50); Red Cell Distribution Width 12.5 % (11.0-16.0); White Blood Count 4.6 X10*3/uL (4.8-10.8)
[2023-12-04 14:34] LABS: Alanine Aminotransferase 17 U/L (0-31); Albumin Level 4.3 g/dL (3.5-5.0); Alkaline Phosphatase 86 U/L (39-117); Anion Gap 11 (12-20); Aspartate Amino Transferase 21 U/L (5-31); Bilirubin Total 1.1 mg/dL (0.0-1.0); Blood Urea Nitrogen 15 mg/dL (9-16); C Reactive Protein < 0.10 mg/dL (< or = 0.50); Calcium 9.8 mg/dL (8.4-10.2); Carbon Dioxide 29 mmol/L (22-29); Chloride 108 mmol/L (96-108); Estimated Glomerular Filt Rate > 60; Glucose Random 85 mg/dL (60-115); Potassium 4.1 mmol/L (3.3-5.1); Sodium 144 mmol/L (135-145); Total Protein 7.2 g/dL (6.5-8.0)
[2023-12-04 14:51] LABS: Erythrocyte Sedimentation Rate 8 MM/HR (0-20)
[2023-12-11 16:14] LABS: Vitamin D 25-OH, D2 <4 ng/mL; Vitamin D 25-OH, D3 23 ng/mL; Vitamin D 25-OH, Total 23 ng/mL (30-100)
== END 2023-12-04 13:25 | disposition home or self-care (01) ==
LOC: HO.LAB 13:24
PROVIDERS: Nurse Practitioner Family; PCP Internal Medicine; Visit Provider Student in an Organized Health Care Education/Training Program
DX: M19.041 Primary osteoarthritis, right hand (principal); M19.042 Primary osteoarthritis, left hand; M25.561 Pain in right knee; M25.562 Pain in left knee; M81.0 Age-related osteoporosis without current pathological fracture
CPT/HCPCS: 36415; 80053; 82306; 85025; 85652; 86140

== ENCOUNTER 2024-04-04 15:28 | Outpatient (AMB) | payer OTHER, SELFPAY ==
[2024-04-04 15:35] VITALS: BP 110/60; PULSE 87; O2SAT 97; BMI 24.6
--- NOTE | 2024-04-04 15:35 | A.OFFVIS_ITS ---
Vital Signs 04/04/24 15:35 Height 5 ft 4 in Weight 143 lb 8.335 oz BMI 24.6 BP 110/60 Blood Pressure Location Lt brachial Position Sitting Pulse 87 Pulse Source Pulse Oximeter Pulse Oximetry (%) 97 Oxygen Delivery Method Room Air Intake Visit Reasons: Hand Pain/OA. Lower Back and sciatica Left Intake Note: Patient last seen by Sandra Pedro on 08/26/23. Presents today for hand pain/OA. Lower back and sciatica left follow up. 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 Allergies penicillin V Allergy (Intermediate, Verified 04/04/24 15:36) Rash Sulfa (Sulfonamide Antibiotics) Allergy (Intermediate, Verified 04/04/24 15:36) Rash morphine Allergy (Mild, Verified 04/04/24 15:36) Dizziness Medication List - Last Reconciled 04/04/24 by Boby Barth MD acetaminophen ER 650 mg PO Q8H PRN albuterol sulfate 90 mcg/actuation (Ventolin HFA) 0 mcg inhalation betamethasone dipropionate 0.05% 1 appl topical BID buspirone 10 mg PO BID PRN cholecalciferol (vitamin D3) (Vitamin D3) 50 mcg PO BID diclofenac sodium 1% (Voltaren Arthritis Pain) 2 grams topical BID docusate sodium (Stool Softener) 100 mg PO BID fluticasone propion-salmeterol 250-50 mcg/dose (Wixela Inhub) 1 ea inhalation BID PRN fluticasone propionate 50 mcg/actuation 0 mcg intranasal heating pads As directed hydrocortisone 2.5% topical ketorolac 0.5% 1 drp ophthalmic (eye) BID ketotifen fumarate 0.025%(0.035%) drps ophthalmic (eye) loratadine (Claritin) 10 mg PO DAILY PRN lorazepam 0.5 mg PO BEDTIME magnesium oxide 500 mg PO DAILY meloxicam 15 mg PO DAILY PRN montelukast 10 mg PO BEDTIME PRN omeprazole 20 mg PO DAILY polyvinyl alcohol 1.4% 1 drp ophthalmic (eye) DAILY sertraline (Zoloft) 100 mg PO DAILY sertraline 25 mg PO DAILY simethicone (Gas Relief Extra Strength) mg PO tramadol 50 mg PO QID PRN triamcinolone acetonide 0.1% appl topical vitamin B complex (Vitamins B Complex tablet) 1 tab PO DAILY HPI Comments Details: 68-year-old female with generalized osteoarthritis who presents for follow-up. She states that she has diffuse pain, her hands bother her, she has pain in her hands, weakness, can not open jars without significant difficulty. Will gets intermittent low back pain that intermittently shoots down her right lower extremity. She takes tramadol q.i.d.. PFSH Medical History Hypovitaminosis D Surgical History Hx of knee surgery H/O arthroscopic knee surgery Hx of section Hx of tonsillectomy Hx of hysterectomy Hx of appendectomy Family History Father Cancer Mother CVD (cardiovascular disease) Social History Alcohol intake: never Patient Tobacco Use Status: Never used Tobacco Review of Systems [facility] Reports back pain, Reports arthralgias and Reports radiating pain into limb Physical Exam Vital Signs: Last Vital Signs Pulse 87 04/04/24 15:35 BP 110/60 04/04/24 15:35 Pulse Ox 97 04/04/24 15:35 Oxygen Delivery Method Room Air 04/04/24 15:35 BMI result Body Mass Index 24.6 Const General: cooperative, healthy appearing and comfortable Nutritional Appearance: average body habitus Orientation/consciousness: patient oriented x3 Limitations: no limitations HEENT Head: Yes normocephalic and Yes atraumatic Mouth: moist mucous membranes Resp Effort & Inspection: normal respiratory effort and able to speak in complete sentences Auscultation: clear to auscultation bilaterally Cardio Rate: regular rate Rhythm: regular rhythm Skin Other: Significant hyperpigmentation of her extremities Neuro General: patient oriented x3 Extrem Other: Osteoarthritic changes of both hands with no active synovitis Normal range of motion of hands, elbows and shoulders without pain Right knee pain with full flexion and extension but no swelling or warmth Assessment & Plan Assessment & Plan (1) Osteoarthritis of hands, bilateral: Code(s): M19.041 - Primary osteoarthritis, right hand; M19.042 - Primary osteoarthritis, left hand Category: Medical Qualifiers: Osteoarthritis type: primary Qualified Code(s): M19.041 - Primary osteoarthritis, right hand; M19.042 - Primary osteoarthritis, left hand Plan: This is a 68-year-old female with generalized osteoarthritis who presents for follow-up. She has been taking tramadol 50 mg q.i.d.. Has been helpful for her without any side effects. Continue the same Referred patient to OT for bilateral hand osteoarthritis Follow-up in 6 months Plan I spent 15 minutes reviewing patient's chart, evaluating patient, counseling patient and documenting in the chart Orders: Orders OT Evaluation and Treatment Today M19.041 - Primary osteoarthritis, right hand, M19.042 - Primary osteoarthritis, left hand Medications: Refilled tramadol 50 mg PO QID PRN 120 tabs 5RF pain M47.816 - Spondylosis without myelopathy or radiculopathy, lumbar region Coding Level of Care Code Est Pt Level 3 (56228) Diagnoses Primary osteoarthritis of both hands M19.041; M19.042 Osteoarthritis type: primary
== END 2024-04-04 15:59 | disposition home or self-care (01) ==
PROVIDERS: PCP Internal Medicine; Visit Provider Student in an Organized Health Care Education/Training Program
DX: M19.041 Primary osteoarthritis, right hand (principal); M19.042 Primary osteoarthritis, left hand
CPT/HCPCS: 99213

== ENCOUNTER → 2024-04-04 15:28 | Outpatient (BNVA) | payer OTHER, SELFPAY | PROVIDERS: PCP Internal Medicine; Visit Provider Student in an Organized Health Care Education/Training Program | DX: M54.32 Sciatica, left side (principal); M19.041 Primary osteoarthritis, right hand; M19.042 Primary osteoarthritis, left hand; M47.816 Spondylosis without myelopathy or radiculopathy, lumbar region | CPT/HCPCS: 99212 ==

== ENCOUNTER 2024-10-06 10:56 | Outpatient (REF) | payer OTHER, SELFPAY ==
[2024-10-06 11:10] LABS: MANUAL DIFF FLAG NO
[2024-10-06 11:49] LABS: Basophils Percent Auto 0.8 % (0-2); Eosinophils Absolute Auto 0.1 X10*3/uL (0.0-0.4); Eosinophils Percent Auto 2.4 % (0-4); Hematocrit 40.9 % (37.0-47.0); Hemoglobin 13.2 g/dl (12.0-16.0); Imm Gran Abs Auto 0.02 X10*3/uL (0.00-0.03); Imm Gran Pct Auto 0.4 % (0.0-0.4); Lymphocytes Absolute Auto 1.6 X10*3/uL (1.2-4.9); Lymphocytes Percent Auto 30.5 % (20-40); Mean Corpuscular HGB Conc 32.3 g/dl (31.0-35.0); Mean Corpuscular Hemoglobin 29.9 pg (27.0-33.0); Mean Corpuscular Volume 92.5 fL (80.0-98.0); Mean Platelet Volume 9.9 fL (9.4-12.3); Monocytes Absolute Auto 0.5 X10*3/uL (0.1-1.2); Monocytes Percent Auto 8.5 % (2-11); Neutrophils Absolute Auto 3.1 x10*3/uL (2.0-8.3); Neutrophils Percent Auto 57.4 % (45-73); Platelet Count 267 X10*3/uL (160-400); Red Blood Count 4.42 X10*6/uL (4.20-5.50); Red Cell Distribution Width 13.1 % (11.0-16.0); White Blood Count 5.3 X10*3/uL (4.8-10.8)
[2024-10-06 12:16] LABS: Alanine Aminotransferase 21 U/L (0-31); Albumin Level 4.5 g/dL (3.5-5.0); Alkaline Phosphatase 82 U/L (39-117); Anion Gap 12 (12-20); Aspartate Amino Transferase 27 U/L (5-31); Bilirubin Total 0.7 mg/dL (0.0-1.0); Blood Urea Nitrogen 15 mg/dL (9-16); C Reactive Protein < 0.10 mg/dL (< or = 0.50); Calcium 9.9 mg/dL (8.4-10.2); Carbon Dioxide 30 mmol/L (22-29); Chloride 107 mmol/L (96-108); Estimated Glomerular Filt Rate > 60; Glucose Random 81 mg/dL (60-115); Sodium 145 mmol/L (135-145); Total Protein 7.7 g/dL (6.5-8.0)
[2024-10-06 12:28] LABS: Erythrocyte Sedimentation Rate 10 MM/HR (0-20)
[2024-10-06 12:31] LABS: Vitamin D 25-OH Total 12.4 ng/mL (>30)
== END 2024-10-06 10:57 | disposition home or self-care (01) ==
LOC: HO.LAB 10:56
PROVIDERS: PCP Internal Medicine; Visit Provider Student in an Organized Health Care Education/Training Program
DX: M19.041 Primary osteoarthritis, right hand (principal); M19.042 Primary osteoarthritis, left hand; E55.9 Vitamin D deficiency, unspecified
CPT/HCPCS: 36415; 80053; 82306; 85025; 85652; 86140

== ENCOUNTER 2024-10-14 13:46 | Outpatient (AMB) | payer OTHER, SELFPAY ==
[2024-10-14 13:50] VITALS: BP 112/68; PULSE 72; O2SAT 98; BMI 23.3
--- NOTE | 2024-10-14 13:50 | A.OFFVIS_ITS ---
Vital Signs 10/14/24 13:50 Height 5 ft 4 in Weight 135 lb 9.349 oz BMI 23.3 BP 112/68 Blood Pressure Location Lt brachial Position Sitting Pulse 72 Pulse Source Pulse Oximeter Pulse Oximetry (%) 98 Oxygen Delivery Method Room Air Intake Visit Reasons: Hand Pain/OA. Lower Back and sciatica Left Intake Note: Patient presents for follow up on osteoarthritis and lab review. Patient requesting x-ray on her left shoulder/upper arm, she had a fall last weekend in her daughter's yard. Patient now takes vit. B12 injections. Allergies penicillin V Allergy (Intermediate, Verified 10/14/24 13:54) Rash Sulfa (Sulfonamide Antibiotics) Allergy (Intermediate, Verified 10/14/24 13:54) Rash morphine Allergy (Mild, Verified 10/14/24 13:54) Dizziness Medication List - Last Reconciled 10/14/24 by Germaine Welch MD acetaminophen ER 650 mg PO Q8H PRN albuterol sulfate 90 mcg/actuation (Ventolin HFA) 0 mcg inhalation betamethasone dipropionate 0.05% 1 appl topical BID buspirone 10 mg PO BID PRN cholecalciferol (vitamin D3) (Vitamin D3) 50 mcg PO DAILY fluticasone propionate 50 mcg/actuation 0 mcg intranasal heating pads As directed hydrocortisone 2.5% topical ketorolac 0.5% 1 drp ophthalmic (eye) BID ketotifen fumarate 0.025%(0.035%) drps ophthalmic (eye) lorazepam 0.5 mg PO BEDTIME meloxicam 15 mg PO DAILY PRN omeprazole 20 mg PO DAILY polyvinyl alcohol 1.4% 1 drp ophthalmic (eye) DAILY sertraline (Zoloft) 100 mg PO DAILY sertraline 25 mg PO DAILY simethicone (Gas Relief Extra Strength) mg PO tramadol 50 mg PO QID PRN triamcinolone acetonide 0.1% appl topical HPI Comments Details: Patient is 69 y.o. female with osteoporosis and polyarticular osteoarthritis here today for follow up Interval History: Patient last seen 04/04/[address] Barth. Visit summary - diffuse pain, castro hands and low back - referred to OT for hand OA Today - left shoulder pain after fall 1 week ago. Would like an XR - still with hand pain. Did not go to OT, did not get any call - does not know when her last DEXA scan was Rheumatologic History: Osteoarthritis Current Rheumatology Medication(s): Meloxicam 15mg daily Tramadol 50mg qid Tylenol 650mg q8hr PFSH Medical History Hypovitaminosis D Surgical History Hx of knee surgery H/O arthroscopic knee surgery Hx of section Hx of tonsillectomy Hx of hysterectomy Hx of appendectomy Family History Father Cancer Mother CVD (cardiovascular disease) Social History Alcohol intake: never Patient Tobacco Use Status: Never used Tobacco Review of Systems Const Details: Review of Systems Constitutional: Denies fever, chills, weight loss ENT: Denies vision changes, eye pain or eye redness, dental caries, dry mouth GI: Denies nausea, vomiting, diarrhea, abdominal pain, change in BM Pulm: Denies SOB, MANE, hemoptysis, wheezing Cards: Denies chest pain, palpitations Skin: Denies Raynaud's, rash, nail changes, photosensitivity, 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 Well appearing and in no apparent painful distress HEENT Conjunctiva and sclera clear. No lymphadenopathy. CHEST/RESPIRATORY SYSTEM Normal respiratory effort and able to speak in complete sentences. Clear to auscultation bilaterally. No crackles, rales, rhonchi, wheezes heard. CARDIAC SYSTEM Regular rate and rhythm. S1 and S2 heard no murmurs. Radial pulses intact bilaterally MSK Hands * Right Hand: Able to make a fist. No swelling or tenderness to palpation of these joints. * Left Hand: Able to make a fist. No swelling or tenderness to palpation of these joints. * Herbeden's nodes noted bilaterally Wrists * Right Wrist: Full ROM. 70 degrees of wrist flexion, 80 degrees of wrist extension. No swelling or TTP * Left Wrist: Full ROM. 70 degrees of wrist flexion, 80 degrees of wrist extension. No swelling or TTP Elbows * Right Elbow: Full ROM. No swelling or TTP. No TTP of the medial and lateral epicondyles * Left Elbow: Full ROM. No swelling or TTP. No TTP of the medial and lateral epicondyles Shoulders * Right shoulder: Full ROM. No swelling noted. No TTP of the AC joint, subacromial bursa or posterior shoulder * Left shoulder: Decreased ROM. Mild TTP of the subacromial bursa Knees * Right knee: Full ROM. No swelling noted. No TTP of the knee joint lie or pes anserine bursa * Left knee: Full ROM. No swelling noted. No TTP of the knee joint lie or pes anserine bursa. * Crepitations felt bilaterally Ankles * Right ankle: Good ankle dorsiflexion and plantar flexion. No swelling. No TTP of the ankle joint * Left ankle: Good ankle dorsiflexion and plantar flexion. No swelling. No TTP of the ankle joint Feet * Right foot: Negative squeeze test * Left foot: Negative squeeze test Tender points? * No tenderness to palpation of the bilateral trapezius, supraspinatus, anterior costochondral junctions, bilateral suboccipital muscle insertions SKIN No rashes Results Reviewed Results Reviewed: Laboratory Tests 12/04/23 10/06/24 13:38 11:08 WBC 5.3 RBC 4.42 Hgb 13.2 Hct 40.9 Plt Count 267 ESR 10 Sodium 145 Potassium 4.0 Chloride 107 Carbon Dioxide 30 H BUN 15 Creatinine 0.74 Total Bilirubin 0.7 AST 27 ALT 21 C-Reactive Protein < 0.10 25-OH Vitamin D Total 23 L 12.4 L MR L spine 08/2023 FINDINGS: There is slight grade 1 anterolisthesis of L5 on S1. Alignment is otherwise normal. Vertebral body heights are preserved. There are type II degenerative endplate changes at L5-S1. Bone marrow signal intensity is otherwise unremarkable. There is disc desiccation at multiple levels without substantial loss of intervertebral disc height. The tip of the conus medullaris is located at L1. No mass effect on the conus. Visualized distal cord signal intensity is normal. At L1-L2 there is a right central annular fissure associated with a slightly bulging disc. No canal stenosis. No mass effect on the traversing or foraminal nerve roots. At L2-L3 there is a left subarticular to foraminal protrusion superimposed upon a bulging disc. Bilateral facet degenerative change. No canal stenosis. Subtle abutment of the left traversing L3 nerve roots. No foraminal nerve root compression. At L3-L4 there is a bulging disc. Bilateral facet degenerative change. No canal stenosis. No mass effect on the traversing or foraminal nerve roots. At L4-L5 there is an asymmetrically bulging disc to the left. Bilateral facet degenerative change. No canal stenosis. Asymmetric narrowing of the left subarticular zone causes abutment and possible compression of the left traversing L5 nerve roots. No foraminal nerve root compression. At L5-S1 there is a diffusely bulging disc. Bilateral facet degenerative change. No canal stenosis. No mass effect on the traversing or foraminal nerve roots. Limited visualization of the retroperitoneal anatomy reveals no abnormal finding. Psoas and paraspinal muscle groups are symmetric. IMPRESSION: There is multilevel degenerative spondylosis of the lumbar spine with slight grade 1 anterolisthesis of L5 on S1 related to facet degenerative changes at this level. No canal stenosis. Asymmetric narrowing of the left subarticular zone at L4-L5 causes abutment and possible compression of the left traversing L5 nerve roots. There is also subtle abutment of the left traversing L3 nerve roots related to degenerative changes at L2-L3. Otherwise no substantial mass effect on the traversing or foraminal nerve roots elsewhere within the lumbar spine. Assessment & Plan Assessment & Plan (1) Osteoporosis: Comment: Maximilian 2017-November 2020, Restarted 12/2021- August History of fracture in the left hand age 64. Code(s): M81.0 - Age-related osteoporosis without current pathological fracture Category: Medical Qualifiers: Osteoporosis type: age-related Presence of current pathological fracture: without current pathological fracture Qualified Code(s): M81.0 - Age- related osteoporosis without current pathological fracture Plan: #Osteoporosis Patient is a 69 y.o. female with osteoporosis here today for follow up. Not currently on any therapy No DEXA seen on file Will need repeat bone density Also Vit D extremely low Plan - DEXA Scan - Vitamin D 87677A weekly - RTC 6 months - Labs before visit: CMP and Vit D (2) Osteoarthritis: Code(s): M19.90 - Unspecified osteoarthritis, unspecified site Category: Medical Qualifiers: Osteoarthritis location: multiple joints Osteoarthritis type: primary Qualified Code(s): M15.0 - Primary generalized (osteo)arthritis Plan: #Polyarticular OA Polyarticular OA. Unchanged Plan - OT for bilateral hand therapy - Meloxicam 15mg daily - Tylenol 650mg q8hr - Tramadol 50mg qid - XR left shoulder 2/2 pain after fall Plan I spent 30 minutes reviewing the record and labs, taking a history, examining the patient, discussing the treatment plan, ordering diagnostic work up and documenting in the medical record Orders: Orders OT Evaluation and Treatment Today M19.041 - Primary osteoarthritis, right hand, M19.042 - Primary osteoarthritis, left hand, M81.0 - Age-related osteoporosis without current pathological fracture XR DEXA axial skeleton Today M81.0 - Age-related osteoporosis without current pathological fracture XR shoulder LT min 2V Today M25.512 - Pain in left shoulder, W19.XXXA - Unspecified fall, initial encounter Medications: New cholecalciferol (vitamin D3) 1,250 mcg PO QWEEK 13 caps 1RF 90 days E55.9 - Vitamin D deficiency, unspecified Coding Level of Care Code Est Pt Level 3 (52081) Complex EM visit Add On G2211 Diagnoses Age-related osteoporosis without current pathological fracture M81.0 Osteoporosis type: age-related Presence of current pathological fracture: without current pathological fracture Primary osteoarthritis involving multiple joints M15.0 Osteoarthritis location: multiple joints Osteoarthritis type: primary
== END 2024-10-14 14:25 | disposition home or self-care (01) ==
LOC: HO.RHE 13:46
PROVIDERS: PCP Internal Medicine; Visit Provider Student in an Organized Health Care Education/Training Program
DX: M81.0 Age-related osteoporosis without current pathological fracture (principal); M15.0 Primary generalized (osteo)arthritis
CPT/HCPCS: 99213; G2211

== ENCOUNTER 2024-10-14 13:46 | Outpatient (REF) | payer OTHER, SELFPAY ==
--- NOTE | ~2024-10-14 | XR_ITS ---
CLINICAL HISTORY: W19.XXXA - Unspecified fall, initial encounter Left shoulder four views Comparison: None provided Findings: No acute fracture or dislocation identified. No acute focal bony abnormality. No radiopaque foreign body noted. Impression: No acute bony abnormality This document has been electronically signed by: Pepe Hernandez MD on 10/15/2024 20:50:14
== END 2024-10-14 13:47 | disposition home or self-care (01) ==
LOC: HO.XRAY 13:46
PROVIDERS: PCP Internal Medicine; Visit Provider Student in an Organized Health Care Education/Training Program
DX: M81.0 Age-related osteoporosis without current pathological fracture (principal); M15.0 Primary generalized (osteo)arthritis; E55.9 Vitamin D deficiency, unspecified; M25.512 Pain in left shoulder; W19.XXXA Unspecified fall, initial encounter
CPT/HCPCS: 73030; 99212

== ENCOUNTER → 2024-10-14 14:34 | Outpatient (BNV) | payer OTHER, SELFPAY | PROVIDERS: PCP Internal Medicine; Visit Provider Radiology Diagnostic Radiology | DX: M25.512 Pain in left shoulder (principal) | CPT/HCPCS: 73030 ==

== ENCOUNTER 2024-11-30 14:29 | Outpatient (REF) | payer OTHER, SELFPAY ==
--- NOTE | ~2024-11-30 | MM_ITS ---
EXAMINATION: DXA BONE DENSITY AXIAL HISTORY: M81.0 - Age-related osteoporosis without current pathological fracture TECHNIQUE: Veracyte Dual energy absorptiometry (DEXA) of the lumbar spine, total left hip, and femoral neck was performed. COMPARISON: There are no prior studies for comparison. FINDINGS: The bone mineral density of the lumbar spine is 0.952 g/cm2, corresponding to a T-score of -1.9, and a Z-score of -0.1. This is indicative of osteopenia. The bone mineral density of the left total hip is 0.842 g/cm2, corresponding to a T-score of -1.3, and a Z-score of 0.2. This is indicative of osteopenia. The bone mineral density of the left femoral neck is 0.798 g/cm2, corresponding to a T-score of -1.7, and a Z-score of 0.1. This is indicative of osteopenia. FRACTURE RISK: The FRAX index suggests a risk of major osteoporotic fracture of 14.6%, and of hip fracture 2.9%. MM/XR DEXA axial skeleton IMPRESSION: Based on bone mineral density, and according to World Health Organization (WHO) criteria, the diagnosis is consistent with osteopenia. Statistically, 68% of repeat scans fall within 1 SD (+/- 0.010 g/cm2 for AP spine L1-L4) and 1 SD (+/- 0.012 g/cm2 for femur total) FRAX is a trademark of the [employer] [place] [facility] Metabolic Bone Disease, a World Health Organization (WHO) Collaborating Center. Electronically signed by: Avelino Briggs MD 11/30/2024 03:03 PM EDT
--- OUTSIDE RECORDS SUMMARY | 2024-11-30 14:43 | XMS_ITS | Patient Health Record ---
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 Phone Kamini MARTIN, [facility] Primary Care Provider Unavailab Spencer Wilson Unavailable [phone] Allergies Allergen (clinical drug ingredient) Drug/Non Drug Allergy documented on EMR Reaction Allergy Type Onset Date Status Adhesive Redness, Itchy Allergy Activ e aspirin Aspirin Stomach issues Drug Allergy Ac tive Latex Latex Itching Allergy Active morphine Morphine Unknown Drug Allergy Active Penicillin Itching, Rash Drug Allergy Ac tive Substance with sulfonamide structure and antibacterial mechanism of action (substance) Sulfa Antibiotics Rash Drug Allergy Active Reason For Referral No Information Medications Medication SIG (Take, Route, Frequency, Duration) Notes Start Date End Date Status Omeprazole 20 MG 1 capsule 30 minutes before morning meal Orally Once a day Active Artificial Tear Acti ve Vitamin B Complex Ac tive Claritin Active Vitamin D Active Acetaminophen ER Act cuca Sertraline HCl Activ e Albuterol Active Pravastatin Sodium 40 MG 1 tablet Orally Once a day Active Ketotifen Fumarate A ctive LORazepam Active Docusate Sodium Acti ve Hydrocortisone Activ e Meclizine HCl 25 MG 1 tablet as needed Orally every 12 hrs Active Montelukast Sodium A ctive Orthopedic Extra Depth Shoes With Custom Heat Molded Multidensity Innersoles 1 Pair shoes with 3 Pair custom heat molded innersoles Wear Daily; Duration: 365 days 12/24/2023 Active Social History Tobacco Use: Social History Observation Description Date Details (start date - stop date) Never Smoker NA - NA Tobacco Use/Smoking Question Answer Notes Are you a: nonsmoker Additional Findings: Tobacco Non-User Current no n-smoker Alcohol Screen Question Answer Notes Did you have a drink containing alcohol in the p ast year? No Points 0 Interpretation Negative Tobacco use other than smoking: Question Answer Notes Are you an other tobacco user? No Problems Problem Type SNOMED Code ICD Code Onset Dates Problem Status W/U Status Risk Notes Problem Acquired hallux valgus (35492169) Hallux valgus (acquired), left foot (M20.12) Active confirmed Problem Hallux valgus (acquired), right foot (M20.11) Active confirmed Vital Signs Height 5ft 4 in in 12/24/2023 Weight 139 lbs 12/24/2023 BMI 23.86 kg/m2 12/24/2023 Encounters Encounter Location Date Provider Diagnosis [facility] [address] [address] 12/24/2023 Spencer Belleunier Pain in left foot M79.672 ; Pain in left ankle and joints of left foot M25.572 ; Bursitis of left foot M77.52 ; Hallux valgus (acquired), left foot M20.12 ; Pain in right foot M79.671 ; Pain in right ankle and joints of right foot M25.571 ; Bursitis of right foot M77.51 and Hallux valgus (acquired), right foot M20.11 Assessments Encounter Date Diagnosis (ICD Code) Assessment Notes Treatment Notes Treatment Clinical Notes Section Notes 12/24/2023 Pain in left ankle and joints of left foot (ICD-10 - M25.572) 12/24/2023 Pain in left foot (ICD-10 - M79.672) 12/24/2023 Bursitis of left foot (ICD-10 - M77.52) 12/24/2023 Hallux valgus (acquired), left foot (ICD-10 - M20.12) 12/24/2023 Pain in right foot (ICD-10 - M79.671) 12/24/2023 Pain in right ankle and joints of right foot (ICD-10 - M25.571) 12/24/2023 Bursitis of right foot (ICD-10 - M77.51) 12/24/2023 Hallux valgus (acquired), right foot (ICD-10 - M20.11) Plan Of Treatment Pending Test Test Name Order Date X ray : Foot, left 3V 12/24/2023 X ray : Foot, right 3V 12/24/2023 Insurance Providers Payer Name Payer Address Payer Phone Subscriber Number Group Number Insured Name Patient Relationship to Insured Coverage Start Date Coverage End Date [facility] [employer] Claims [address] [place] [id number] [phone] [id number] Whit Perez Self - patient is the insured Medical (General) History Medical History History ICD Code Anxiety Arthritis asthma Back,Hip,and Knee pain Broken bones CAD (Cholesterol) Chicken pox Depression Fibromyalgia Glaucoma Hiatal hernia Numbness Osteoporosis Psoriasis/eczema Reflux Sciatica Vertigo
--- OUTSIDE RECORDS SUMMARY | 2024-11-30 14:43 | XMS_ITS | Clinical Summary ---
Author Organization [facility] Facility Address [address] [place] [id number] Care Team Providers Care Corn Shucker Name Role Phone Deepali Suárez MD Primary Care Provider [phone] Allergies Active Allergy Reactions Criticality Noted Date Comments Adhesive Tape 10/30/2017 Morphine Other (see comments) 11/16/2008 Penicillins Hives 07/22/2017 Other reaction(s): rash, itching Sulfa Antibiotics Hives 07/22/2017 Other reaction(s): rash Medications dicyclomine (BENTYL) 10 MG capsule Take 10 mg by mouth 4 (four) times a day (before meals and nightly) Active albuterol HFA (PROVENTIL HFA;VENTOLIN HFA) 108 (90 Base) MCG/ACT inhaler Inhale 2 puffs every 6 (six) hours if needed for wheezing Active pravastatin (PRAVACHOL) 40 MG tablet Take 40 mg by mouth 1 (one) time each day Active loratadine (CLARITIN) 10 MG tablet Take 10 mg by mouth 1 (one) time each day Active fluticasone (FLONASE) 50 MCG/ACT nasal spray Administer 1 spray into each nostril 1 (one) time each day Active b complex vitamins capsule Take 1 capsule by mouth 1 (one) time each day Active omeprazole (PriLOSEC) [address] capsule Take 20 mg by mouth 1 (one) time each day Do not crush or chew. Active docusate sodium (COLACE) 100 MG capsule Take 100 mg by mouth in the morning and 100 mg in the evening. Active cholecalciferol (VITAMIN D-3) 1.25 MG (10530 UT) tablet Take 50,000 Units by mouth 1 (one) time per week Active senna-docusate (PERICOLACE) 8.6-50 MG per tablet Take 1 tablet by mouth 1 (one) time each day Active sertraline (ZOLOFT) 100 MG tablet Take 100 mg by mouth 1 (one) time each day Active traMADol (ULTRAM) 50 MG tablet Take 50 mg by mouth every 6 (six) hours if needed for moderate pain Active LORazepam (ATIVAN) 0.5 MG tablet Take 0.5 mg by mouth every 6 (six) hours if needed for anxiety Active betamethasone valerate (VALISONE) 0.1 % cream Apply topically 2 (two) times a day Active Polyvinyl Alcohol-Povidon e PF 1.4-0.6 % solution Administer into affected eye(s) Active ketorolac (ACULAR) 0.4 % solution 1 drop 0.5% Active Active Problems Problem Noted Date Diagnosed Date Hyperlipidemia 10/23/2021 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 Thyroid nodule 11/30/2017 Chronic obstructive pulmonary disease 09/06/2017 Irritable bowel syndrome 09/06/2017 Osteopenia 09/06/2017 Vitamin D deficiency 09/06/2017 Degenerative joint disease involving multiple roldan ints 07/22/2017 Fibromyalgia 07/22/2017 Immunizations Immunization Administration Dates Next Due Influenza Split High Dose Pr eservative Free IM 04/01/2021 Influenza, MDCK, PF, Quadrivalent 03/18/2018 Moderna SARS-COV-2 04/28/2021,08/09/2020, 021 Pneumococcal Polysaccharide 04/08/2011 Tdap 04/30/2012 Social History Tobacco Use Types Packs/Day Years Used Date Smoking Tobacco: Never Assessed Comments Unknown Sex and Gender Information Value Date Recorded Sex Assigned at Not on file Legal Sex Female 10:02 AM EDT Gender Identity Not on file Sexual Orientation Not on file Last Filed Vital Signs Vital Sign [place] Time Taken Comments Blood Pressure 103/62 10/23/2021 10:50 AM EDT Pulse 82 10/23/2021 10:50 AM EDT Temperature - - Respiratory Rate - - Oxygen Saturation 97% 10/23/2021 10:50 AM EDT Inhaled Oxygen Concentration - - Weight 63.5 kg (140 lb) 10/23/2021 10:50 AM EDT Height - - Body Mass Index - - Plan of Treatment Health Maintenance Due Date Last Done Comments Breast Cancer Screening 1955 Colorectal Cancer Screening: Annual FOBT 2004 Colorectal Cancer Screening: Colonoscopy 2004 Colorectal Cancer Screening: Sigmoidoscopy 2004 Pneumococcal Vaccine: 50+ Years (2 of 2 - PCV) 04/08/2012 04/08/2011 Influenza Vaccine (#1) 2024 , 03/18/2018 Hepatitis B Vaccine Aged Out No longe r eligible based on patient's age to complete this [place] [address] [facility] Care Teams Corn Shucker Relationship Specialty Start Date End Date Deepali Suárez MD [address] [place] [id number] PCP - General Internal Medicine 10/01/21
--- OUTSIDE RECORDS SUMMARY | 2024-11-30 14:43 | XMS_ITS | Clinical Summary ---
Author Organization Patient Business Ser [facility] Address [address] [place] [address] Care Team Providers Care Ukrainian Folk Arts Instructor Name Role Phone Deepali Suárez MD Primary Care Provider [phone] Allergies Active Allergy Reactions Criticality Noted Date Comments Adhesive 10/30/2017 Morphine Dizziness 11/16/2008 Penicillins 07/22/2017 Other Reaction(s): Hives/Urticaria Sulfa (Sulfonamide Antibiotics) 07/22/2017 Other Reaction(s): Hives/Urticaria Medications colestipoL (COLESTID) 1 gram tablet 09/16/19 24 Active fluticasone propionate (FLONASE) 50 mcg/actuation nasal spray USE 2 SPRAYS IN EACH NOSTRIL ONCE DAILY.ONCE SYMPTOMS RESOLVED REDUCE TO 1 SPRAY IN EACH NOSTRIL. 12/26/19 23 Active gabapentin (NEURONTIN) 300 mg capsule Take 1 capsule (300 mg total) by mouth. 04/28/19 23 Active ketorolac (ACULAR) 0.5 % ophthalmic solution Administer 1 drop into affected eye(s). 04/28/19 23 Active loratadine (CLARITIN) 10 mg tablet TOME KRISHNA WENA TODOS LOS CORMIER 11/05/19 24 Active montelukast (SINGULAIR) 10 mg tablet Take 1 tablet (10 mg total) by mouth. 10/25/19 23 Active ondansetron (ZOFRAN) 4 mg tablet Take 1 tablet (4 mg total) by mouth every 8 (eight) hours if needed. 09/15/19 24 Active raloxifene (EVISTA) 60 mg tablet Take 1 tablet (60 mg total) by mouth. 04/28/19 Active coenzyme Q-10 200 mg capsule 04/28/19 23 Active B complex tablet Take 1 tablet by mouth 2 (two) times a day. 05/16/19 22 Active hydrocortisone (bulk)-white petrolatum-salvage determiner al oiL Apply 1 inch topically. 09/15/19 Active OCULAR IMPLANT FOR RANIBIZUMAB VTRE Administer 1 drop into affected eye(s). 04/28/19 Active diclofenac (VOLTAREN) 1 % topical gel PLEASE SEE ATTACHED FOR DETAILED DIRECTIONS 01/10/20 Active LORazepam (ATIVAN) 0.5 mg tablet Take 1 tablet (0.5 mg total) by mouth 1 (one) time each day if needed for anxiety. Active incontinence pad, liner, disp padIndications:I nternal hemorrhoids 1 each by Not Applicable route 1 (one) time each day. 100 each 07/21/19 25 Active Ventolin HFA 90 mcg/actuation inhalerIndicatio ns:Postnasal drip,Mild persistent asthma, uncomplicated INHALE 2 PUFFS INTO THE LUNGS EVERY 4 HOURS NEEDED FOR COUGH, WHEEZING OR SHORTNESS OF BREATH. 54 each 1 07/26/19 25 Active hydrocortisone (ANUSOL-HC) 2.5 % rectal cream PLACE 1 INCH RECTALLY 2 TIMES DAILY. 30 g 08/16/19 25 Active nutritional supplement-fiber liquidIndication s:Vitamin D deficiency,Vitam in B12 deficiency Take 1 each by mouth 2 (two) times a day. 1500 mL 09/22/19 25 Active rosuvastatin (CRESTOR) 20 mg tablet Take 1 tablet (20 mg total) by mouth 1 (one) time each day. 30 each 10/04/19 25 2025 Active pantoprazole (PROTONIX) 40 mg EC tablet Take 1 tablet (40 mg total) by mouth 1 (one) time each day. Do not crush, chew, or split. 30 each 10/05/19 25 2025 Active magnesium oxide 250 mg magnesium tabletIndication s:Vitamin D deficiency Take 1 tablet (250 mg total) by mouth 1 (one) time each day. 90 tablet 10/06/19 25 Active meclizine (ANTIVERT) 25 mg tablet Take 1 tablet (25 mg total) by mouth 3 (three) times a day if needed for dizziness. 40 tablet 11/11/19 25 Active doxycycline (VIBRAMYCIN) 100 mg capsule Take 1 capsule (100 mg total) by mouth 2 (two) times a day. Take with at least 8 ounces (large glass) of water, do not lie down for 30 minutes after. Administer 2 hours before or after multivitamins , antacids, or other products containing polyvalent cations (i.e., calcium, iron, magnesium, selenium, zinc). 14 each 11/22/19 25 Active benzonatate (TESSALON) 200 mg capsule Take 1 capsule (200 mg total) by mouth 3 (three) times a day if needed for cough. Do not crush or chew. 21 capsule 11/22/19 25 Active cholecalciferol (VITAMIN D-3) 50 mcg (2,000 unit) tablet Take 1 tablet (2,000 Units total) by mouth 1 (one) time each day. 11/15/19 21 2024 Discontinued(A lternate therapy) meclizine (ANTIVERT) 25 mg tablet Take 1 tablet (25 mg total) by mouth. 05/13/19 24 2024 Discontinued hyoscyamine (ANASPAZ,LEVSIN) 0.125 mg tablet Take 1 tablet (0.125 mg total) by mouth every 6 (six) hours if needed for cramping. 30 tablet 3 05/19/19 25 2024 cholecalciferol (Vitamin D3) 50 mcg (2,000 unit) tablet Take 1 tablet (2,000 Units total) by mouth 1 (one) time each day. 90 tablet 2 07/21/19 25 2024 Discontinued(A lternate therapy) predniSONE (DELTASONE) 20 mg tabletIndication s:Acute cough,Mild intermittent asthma with exacerbation Take 2 tablets (40 mg total) by mouth 1 (one) time each day for 5 days. 10 each 11/16/19 25 2024 clotrimazole (LOTRIMIN) 1 % vaginal cream Insert 1 applicator into the vagina 1 (one) time each day in the evening for 7 days. 45 g 11/22/19 25 2024 Hospital, Clinic, or Other Facility Administered Medication Ordered Dose Route Frequency Start Date End Date Status cyanocobalamin (VITAMIN B-12) injection 1,000 mcgIndications:Vitamin B12 deficiency 1000 mcg IM Every 30 days 07/20/2024 07/15/2025 Active Active Problems Problem Noted Date Diagnosed Date Apical lung scarring 10/15/2024 PND (post-nasal drip) 10/15/2024 Heart murmur 10/03/2024 Other chest pain 10/03/2024 Vitamin B12 deficiency 04/15/2024 Assessment & Plan (11/21/2024 10:29 PM EDT): Orders: Vitamin B12; Future Vitamin D 25 hydroxy; Future Basic metabolic panel; Future Hyperlipidemia 01/22/2024 Assessment & Plan (11/21/2024 10:29 PM EDT): Orders: Vitamin B12; Future Vitamin D 25 hydroxy; Future Basic metabolic panel; Future Hx of sarcoidosis 01/22/2024 Low left ventricular ejection fraction 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 - Obstructive Sleep Apnea - mild; mostly hypopneas and central apneas; without sleep related hypoventilation by 2018 home polysomnogram. - 2019 home study with AL 2. 05/2020 Home Sleep Study did not reveal sleep apnea or nocturnal hypoxia. AL . 05/2021 Home Sleep Study did not reveal sleep apnea or nocturnal hypoxia. Dysphagia 12/29/2017 Thyroid nodule 11/30/2017 Cholelithiasis 10/30/2017 Gastroparesis 10/30/2017 Vitamin D deficiency 09/06/2017 Irritable bowel syndrome 09/06/2017 Carpal tunnel syndrome 09/06/2017 DDD (degenerative disc disease), lumbar 09/07/19 Osteopenia 09/06/2017 Glaucoma 09/06/2017 COPD (chronic obstructive pu lmonary disease) ([facility] V24, [facility] V28) 09/06/2017 Assessment & Plan (11/21/2024 10:29 PM EDT): Orders: Vitamin B12; Future Vitamin D 25 hydroxy; Future Basic metabolic panel; Future Varicose vein of leg 07/22/2017 Gastroesophageal reflux disease 07/22/2017 Hiatal hernia 07/22/2017 Anxiety and depression 07/22/2017 Fibromyalgia 07/22/2017 Generalized OA 07/22/2017 Vitiligo 07/22/2017 Asthma 07/22/2017 Allergic rhinitis 02/10/2017 Cervical radiculopathy 07/16/2016 Scoliosis 12/08/2012 Migraine headache 05/25/2012 Internal hemorrhoids 12/03/2011 Encounters Date Type Department Care Team Description 11/24/2024 Telephone [facility] [address] [facility] 101 [place] [phone] Brittany Rodriguez MA Results (Lipid panel 11/21/24) 11/24/2024 Telephone Gastroenterology - [place] [address] [place] [phone] Angeles Walters PA provider call back 11/21/2024 2:40 PM EDT Lab Draw Station - 175 [facility] 175 [facility] 130 [place] [phone] Hyperlipemia (Primary Dx); Mixed hyperlipidemia; Vitamin B12 deficiency; Chronic obstructive pulmonary disease, unspecified COPD type ([facility] V24, [facility] V28) 11/21/2024 2:00 PM EDT Office Visit Internal Medicine - [place] 175 [facility] 200 [place] [phone] Deepali Suárez MD Mixed hyperlipidemia (Primary Dx); Vitamin B12 deficiency; Chronic obstructive pulmonary disease, unspecified COPD type ([facility] V24, [facility] V28); Postmenopausal state; Encounter for subsequent annual wellness visit (AWV) in Medicare patient 11/15/2024 11:36 AM EDT - 11/15/2024 11:59 PM EDT Hospital Encounter [facility] Xray [address] [place] [phone] Acute cough; Mild intermittent asthma with exacerbation Discharge Disposition: Home or Self Care 11/15/2024 11:00 AM EDT [facility] [address] [facility] [address] [place] [phone] Teri Hawkins NP Acute cough (Primary Dx); Mild intermittent asthma with exacerbation 11/10/2024 1:30 PM EDT Clinical Support Internal Medicine - [place] 175 [facility] 200 [place] [address] 11/08/2024 Telephone Internal Medicine - [place] 175 [facility] 200 [place] [address] Deepali Suárez MD 10/17/2024 1:30 PM EDT Ancillary Procedure [facility] - [address] [place] [phone] Heart murmur; Varicose veins of both lower extremities, unspecified whether complicated; Other chest pain; Mixed hyperlipidemia 10/13/2024 2:30 PM EDT Office Visit Vascular Surgery - [place] [address] [place] [address] Fartun Lange PA Varicose veins of both lower extremities with pain (Primary Dx); Cramps of right lower extremity 10/13/2024 1:50 PM EDT - 10/13/2024 11:59 PM EDT Hospital Encounter [facility] Xray [address] [place] [phone] Allergic rhinitis, unspecified seasonality, unspecified trigger Discharge Disposition: Home or Self Care 10/13/2024 1:00 PM EDT [facility] 175 [facility] [address] [place] [phone] Teri Hawkins NP Mild intermittent asthma without complication (Primary Dx); Apical lung scarring; PND (post-nasal drip); Allergic rhinitis, unspecified seasonality, unspecified trigger; Obstructive sleep apnea; Gastroesophageal reflux disease, unspecified whether esophagitis present 10/04/2024 1:00 PM EDT Office Visit Gastroenterology - [address] [phone] Angeles Walters PA Gastroesophageal reflux disease without esophagitis (Primary Dx); RLQ abdominal pain; Irritable bowel syndrome, unspecified type; Gastroparesis 10/03/2024 1:30 PM EDT Office Visit [facility] Cardiology [facility] [address] [phone] Tanmay Kay MD Heart murmur (Primary Dx); Varicose veins of both lower extremities, unspecified whether complicated; Other chest pain; Mixed hyperlipidemia 09/27/2024 1:45 PM EDT Clinical Support Internal Medicine - [address] [phone] 09/21/2024 Telephone Internal Medicine - [address] [phone] Alysha Goyal MA faxed order (L&C) 09/19/2024 12:00 PM EDT Ancillary Procedure [facility] Cardiology [facility] [address] [phone] Varicose veins of both lower extremities with pain from Last 3 Months Immunizations Name Administration Dates Next Due Influenza Quadravalent, MDCK , 0.5ml, preservative free (Flucelvax) 6mo and older 03/24/2023,03/18/2018 Influenza trivalent, 0.5mL ( Fluzone High-dose) 65yo and older 02/05/2022,04/01/2021 Moderna SARS-CoV-2 COVID-19, mRNA, LNP-S, preservative free 04/28/2021,08/09/2020,07/12/2020 Pneumococcal polysaccharide 23 valent (Pneumovax 23) 2yo and older 04/08/2011 Td Tetanus diptheria (Tdvax) 7yo and older 04/20 Tdap Tetanus diptheria acell ular pertussis (Boostrix; Adacel) 7yo and older 04/30/2012 Surgical History Surgery Date Site/Laterality Comments TONSILLECTOMY PROCEDURE: HISTORICAL TONSILLECTOMY HYSTERECTOMY PROCEDURE: HISTORICAL HYSTERECTOMY SECTION PROCEDURE: HISTORICAL DELIVERY; COMMENT: x 2 COLONOSCOPY 09/04/2010 PROCEDURE: HISTORICAL COLONOSCOPY OTHER SURGICAL HISTORY 07/02/2017 PROCEDURE: (UGI) CONTRAST X-RAY OF UPPER GI TRACT; COMMENT: sliding hiatal hernia, No reflux or Esophageal dysmotility APPENDECTOMY PROCEDURE: HISTORICAL APPENDECTOMY KNEE SURGERY PROCEDURE: HISTORICAL KNEE SURGERY OTHER SURGICAL HISTORY 2015 PROCEDURE: HISTORY OTHER; COMMENT: jaison fundoplication Medical History Medical History Date Comments Vitiligo DX:Vitiligo Hiatal hernia DX:Hiatal hernia Glaucoma DX:Glaucoma Fibromyalgia DX:Fibromyalgia Generalized OA DX:Generalized O A CTS (carpal tunnel syndrome) 09/06/2017 DX: CTS (carpal tunnel syndrome) COPD (chronic obstructive pu lmonary disease) ([facility] V24, [facility] V28) 09/06/2017 DX:COPD (chronic o bstructive pulmonary disease) ([facility]) Vitamin D deficiency 09/06/2017 DX:Vitamin D deficiency Sarcoidosis 09/06/2017 DX:Sarcoidosis Osteopenia 09/06/2017 DX:Osteopenia Chronic low back pain 09/06/2017 DX:Chronic low back pain Lung nodules 09/06/2017 DX:Lung nodules; COMMENT: Stable on chest CT 10/04 Gastroparesis 10/30/2017 DX:Gastroparesis Anxiety and depression 07/22/2017 DX:Anxiet y and depression Cholelithiasis 10/30/2017 DX:Cholelithiasi s Gastroesophageal reflux disease 07/22/2017 DX:Gastroesophageal reflux disease Hyperlipidemia DX:Hyperlipidemi a Varicose vein of leg 07/22/2017 DX:Varicose vein of leg Asthma 07/22/2017 DX:Asthma Allergic rhinitis 02/10/2017 DX:Allergic rh initis Anal or rectal pain 07/18/2011 DX:Anal or r ectal pain Carpal tunnel syndrome 09/06/2017 DX:Carpal tunnel syndrome Cervical radiculopathy 07/16/2016 DX:Cervic al radiculopathy Dysphagia 12/29/2017 DX:Dysphagia Internal hemorrhoids 12/03/2011 DX:Internal hemorrhoids Irritable bowel syndrome 09/06/2017 DX:Irri table bowel syndrome Lactase deficiency 01/22/2015 DX:Lactase de ficiency Left arm weakness 04/09/2016 DX:Left arm we akness Liver lesion, right lobe 01/18/2015 DX:Live r lesion, right lobe Pulmonary nodules 09/06/2017 DX:Pulmonary n odules; COMMENT: Stable on chest CT 10/04 Scoliosis 12/08/2012 DX:Scoliosis Thyroid nodule 11/30/2017 DX:Thyroid nodul e History of sarcoidosis 11/13/2019 DX:Histor y of sarcoidosis; COMMENT: Hist pulmonary sarcoid Family History Medical History Relation Name Comments Breast cancer Aunt 1 mat Breast cancer Aunt 2 pat Lung cancer Father Other: Other Mother pacemaker Relation Name Status Comments Aunt 1 Aunt 2 Daughter Alive Father Mother Alive Son Alive Social History Tobacco Use Types Packs/Day Years Used Date Smoking Tobacco: Never Smokeless Tobacco: Never Tobacco Cessation:Counseling Given: Not Answered Alcohol Use Standard Drinks/Week Comments No 0 (1 standard drink = 0.6 oz pur e alcohol) Housing Instability Answer Date Recorde d Are you worried that in the next 2 months you may not have stable housing? No 09/27/2024 Food Access & Nutrition Answer Date Rec orded Do you have access to a vari ety of food including fruits and vegetables? Yes 09/27/2024 Access to Healthcare Answer Date Record ed Within the last 3 months, ho w many times did you visit the emergency department for your medical care? 0 09/27/2024 Health Literacy Answer Date Recorded How often do you need to hav e someone help you when you read instructions, pamphlets, or other written material from your doctor or pharmacy? Never 09/27/2024 Caregiver: How often do you need to have someone help you when you read instructions, pamphlets, or other written material from your doctor or pharmacy? Not on file 09/27/2024 Financial Risk Answer Date Recorded How hard is it for you to pa y for the very basics like food, housing, medical care, and air conditioning / heating? Not very hard 09/27/2024 Transportation Answer Date Recorded Has the lack of transportati on kept you from meetings, work, or from getting things needed for daily living? No Has the lack of transportati on kept you from medical appointments or from getting medications? No 09/27/2024 Social Isolation Answer Date Recorded How often do you feel lonely or isolated from th ose around you? Rarely 09/27/2024 Food Risk Answer Date Recorded Within the past 12 months we worried whether our food would run out before we got money to buy more. Sometimes true 025 Within the past 12 months th e food we bought just didn't last and we didn't have money to get more. Never true 09/27/2024 Dependent Care Answer Date Recorded Do you need help finding or paying for care for your loved ones. For example, child development teacher or elderly care for an older adult? No 09/27/2024 Education Answer Date Recorded Do you think completing more education or training, like finishing a GED, going to college, or learning a trade, would be helpful for you? No 09/27/2024 Employment and Income Answer Date Recor ded During the last four weeks, have you been actively looking for work? No 09/27/2024 Living Situation Answer Date Recorded What is your living situation? 0 09/27/2024 Comments Unknown Sex and Gender Information Value Date Recorded Sex Assigned at Female 07/22/2024 2:34 PM EDT Legal Sex Female 10:11 AM EDT Gender Identity Female 07/22/2024 2:34 PM EDT Sexual Orientation Not on file Obstetrics History Last Filed Vital Signs Vital Sign Reading Time Taken Comments Blood Pressure 132/86 11/21/2024 2:05 PM EDT Pulse 82 11/21/2024 2:05 PM EDT Temperature 36.6 C (97.9 F) 11/21/2024 2:05 PM EDT Respiratory Rate 18 11/21/2024 2:05 PM EDT Oxygen Saturation 98% 11/21/2024 2:05 PM EDT Inhaled Oxygen Concentration - - Weight 59 kg (130 lb) 11/21/2024 2:05 PM EDT Height 162.6 cm (5' 4 ) 11/21/2024 2:05 PM EDT Body Mass Index 22.31 11/21/2024 2:05 PM EDT Plan of Treatment Upcoming Encounters Date Type Department Care Team (Late st Contact Info) Description 12/02/2024 3:30 PM EDT Appointment [facility] CT Scan [address] [place] [phone] 12/13/2024 2:00 PM EDT Clinical Support Internal Medicine - [place] 175 [facility] 200 [place] [phone] 12/23/2024 11:45 AM EDT Office Visit Bariatric Surgery - [place] 175 [facility] 120 [place] [phone] Ann Alvarado MD 175 [facility] 120 [place] [phone] 12/28/2024 1:40 PM EDT Office Visit Gastroenterology - [place] 175 [facility] 175 [facility] 200 [place] [phone] Angeles Walters PA 175 [facility] 200 [place] [address] 01/18/2025 10:35 AM EDT Office Visit Pulmonolgy - [place] 175 [facility] 200 [place] [phone] Teri Hawkins NP [address] [facility] 200 [place] [address] 03/23/2025 1:15 PM EST Office Visit Internal Medicine - [place] 175 [facility] 200 [place] [phone] Deepali Suárez MD 175 [facility] 200 [place] [address] 08/09/2025 10:00 AM EDT Ancillary Procedure [facility] [address] [facility] 101 [place] [address] 10/13/2025 2:00 PM EDT Office Visit Vascular Surgery - [place] 300 [facility] 210 [place] [address] Fartun Lange PA 300 [facility] [address] [place] [address] Health Maintenance Due Date Last Done Comments Zoster Vaccines (1 of 2) 2005 RSV Immunization Adult Patients (1 - Risk 60-74 years 1-dose series) 2015 Hepatitis C Screening 07/11/2020 Medicare Annual Wellness Visit 07/11/2020 Osteoporosis Screening (Bone Density Screening) 07/11/2020 DTaP,Tdap,and Td Vaccines (3 - Td or Tdap) 04/30/2022 04/30/2012, 04/20/2001 COVID-19 Vaccine (4 - season) 2023 04/28/2021, 08/09/2020, 07/12/2020 Influenza Vaccine (#1) 2024 , 03/24/2023, 02/05/2022, Additional history exists Social Influencers of Health Screening 09/27/2025 09/27/2024 Breast Cancer Screening 11/05/2025 11/06/2023 Falls Risk Assessment 11/21/2025 11/21/2024 Hypertension/CHF/CAD Annual BMP Blood Test 11/21/2025 11/21/2024, 01/14/2024, 01/14/2024 Cholesterol Screening (Lipid Panel) 11/21/2029 11/21/2024, 01/14/2024, 01/14/2024, Additional history exists Colorectal Cancer Screening: Colonoscopy 06/16/2032 06/16/2022, 06/16/2022 Pneumococcal Vaccine: 50+ Years Completed 05/19/2024, 04/08/2011 Depression Screening Completed 11/21/2024, 01/14/20 HIB Vaccines Aged Out No longer eligi ble based on patient's age to complete this topic HPV Vaccines Aged Out No longer eligi ble based on patient's age to complete this topic Hepatitis A Vaccines Aged Out No long er eligible based on patient's age to complete this topic Hepatitis B Vaccines Aged Out No long er eligible based on patient's age to complete this topic IPV Vaccines Aged Out No longer eligi ble based on patient's age to complete this topic MMR Vaccines Aged Out No longer eligi ble based on patient's age to complete this topic Meningococcal ACWY Vaccine Aged Out N o longer eligible based on patient's age to complete this topic Meningococcal B Vaccine Aged Out No l onger eligible based on patient's age to complete this topic RSV Immunization Patients Under 20 months Aged Out No longer eligible based on patient's age to complete this topic Varicella Vaccines Aged Out No longer eligible based on patient's age to complete this topic Procedures Procedure Name Priority Date/Time Associated Diagnosis Comments VITAMIN B12 Routine 11/21/2024 2:40 PM EDT Mixed hyperlipidemia Vitamin B12 deficiency Chronic obstructive pulmonary disease, unspecified COPD type (CMS/HCC V24, CMS/HCC V28) VITAMIN D 25 HYDROXY Routine 11/21/2024 2:40 PM EDT Mixed hyperlipidemia Vitamin B12 deficiency Chronic obstructive pulmonary disease, unspecified COPD type (CMS/HCC V24, CMS/HCC V28) BASIC METABOLIC PANEL Routine 11/21/2024 2:40 PM EDT Mixed hyperlipidemia Vitamin B12 deficiency Chronic obstructive pulmonary disease, unspecified COPD type (CMS/HCC V24, CMS/HCC V28) LIPID PANEL WITH REFLEX TO DIRECT LDL Routine 11/21/2024 2:40 PM EDT Hyperlipemia XR CHEST 2 VIEWS Routine 11/15/2024 11:4 4 AM EDT Acute cough Mild intermittent asthma with exacerbation STRESS ECHOCARDIOGRAM EXERCISE Routine 10/17/2024 2:10 PM EDT Heart murmur Varicose veins of both lower extremities, unspecified whether complicated Other chest pain Mixed hyperlipidemia EXTERNAL XRAY REPORT 10/15/2024 XR CHEST 2 VIEWS Routine 10/13/2024 2:00 PM EDT Allergic rhinitis, unspecified seasonality, unspecified trigger ECG 12-LEAD Routine 10/03/2024 1:30 PM EDT Heart murmur VAS US DUPLEX LOWER EXT VENOUS INSUFFICIENCY BILATERAL Routine 09/19/2024 12:31 PM EDT Varicose veins of both lower extremities with pain DEPRESSION SCREENING Routine 01/14/2024 COLONOSCOPY Routine 06/16/2022 from Last 3 Months or Most Recently Relevant to Health Maintenance Results * (ABNORMAL) Lipid panel with reflex to direct LDL (11/21/2024 2:40 PM EDT) Cholesterol 264(H) 0 - 200 mg/dL LAB CHEMISTRY METHOD 11/21/2024 6:44 PM EDT [facility] Triglycerides 198(H) 0 - 150 mg/dL LAB CHEMISTRY METHOD 11/21/2024 6:44 PM EDT [facility] HDL 73 >=40 mg/dL LAB CHEMISTRY METHOD 11/21/2024 6:44 PM EDT [facility] LDL Calculated 151(H) 0 - 100 mg/dL LAB CHEMISTRY METHOD 11/21/2024 6:44 PM EDT [facility] VLDL Cholesterol Grant 39.6 mg/dL LAB CHEMISTRY METHOD 11/21/2024 6:44 PM EDT [facility] Non HDL Chol. (LDL+VLDL) 191(H) <145 mg/dL LAB CHEMISTRY METHOD 11/21/2024 6:44 PM EDT [facility] Chol/HDL Ratio 3.6 0.0 - 4.4 LAB CHEMISTRY METHOD 11/21/2024 6:44 PM EDT [facility] Blood Venous blood specimen / Unknown Venipuncture / Unknown 11/21/2024 2:40 PM EDT 11/21/2024 2:40 PM EDT us Tanmay Kay MD LAB BLOOD ORDERABLES Final Resu lt [facility] [address] [place] [address], * (ABNORMAL) Vitamin D 25 hydroxy (11/21/2024 2:40 PM EDT) Pathologist [facility] Vit D, 25-Hydroxy 20.0(L) 30.0 - 80.0 ng/mL LAB CHEMISTRY METHOD 11/21/2024 6:59 PM EDT [facility] Blood Venous blood specimen / Unknown Venipuncture / Unknown 11/21/2024 2:40 PM EDT 11/21/2024 2:40 PM EDT Deepali Suárez MD LAB BLOOD ORDERABLES Final Res ult [facility] [address] [place] [address], [place] [phone] * Vitamin B12 (11/21/2024 2:40 PM EDT) [facility] Vitamin B-12 319 250 - 900 pcg/mL LAB CHEMISTRY METHOD 11/21/2024 6:44 PM EDT [facility] Blood Venous blood specimen / Unknown Venipuncture / Unknown 11/21/2024 2:40 PM EDT 11/21/2024 2:40 PM EDT us Deepali Suárez MD LAB BLOOD ORDERABLES Final Res ult [facility] [address] [place] [address], [place] [phone] * Basic metabolic panel (11/21/2024 2:40 PM EDT) [facility] Sodium 141 133 - 145 mmol/L LAB CHEMISTRY METHOD 11/21/2024 6:21 PM EDT [facility] Potassium 3.8 3.5 - 5.5 mmol/L LAB CHEMISTRY METHOD 11/21/2024 6:21 PM EDT [facility] Chloride 104 96 - 110 mmol/L LAB CHEMISTRY METHOD 11/21/2024 6:21 PM EDT [facility] CO2 32 21 - 32 mmol/L LAB CHEMISTRY METHOD 11/21/2024 6:21 PM EDT [facility] Anion Gap 5 3 - 11 LAB CHEMISTRY METHOD 11/21/2024 6:21 PM T [facility] Glucose 75 70 - 100 mg/dL LAB CHEMISTRY METHOD 11/21/2024 6:21 PM EDT [facility] BUN 21 5 - 25 mg/dL LAB CHEMISTRY METHOD 11/21/2024 6:21 PM [facility] Creatinine 0.78 0.50 - 1.10 mg/dL [facility] >=60 mL/min/1. 73m2 LAB CHEMISTRY METHOD 11/21/2024 6:21 PM EDT [facility] Comment:Calculation based on the Chronic Kidney Disease Epidemiology Collaboration (CKD-EPI) equation refit without adjustment for race. BUN/Creatinine Ratio 26.9 LAB CHEMISTRY METHOD 11/21/2024 6:21 PM [facility] Calcium 8.9 8.5 - 10.5 mg/dL LAB CHEMISTRY METHOD 11/21/2024 6:21 PM [facility] Blood Venous blood specimen / Unknown Venipuncture / Unknown 11/21/2024 2:40 PM EDT 11/21/2024 2:40 PM EDT us Deepali Suárez MD LAB BLOOD ORDERABLES Final Res ult [facility] [address] [place] [address], * XR Chest 2 Views (11/15/2024 11:44 AM EDT) Only the most recent of2 resultswithin the time period is included. Anatomical Region Laterality Modality Body Radiographic Sania ging 11/15/2024 11:4 6 AM EDT Impressions 11/15/2024 11:48 AM EDT No pneumonia or edema. Large lung volumes. -------- FINAL REPORT -------- Dictated By: Gerardo Taylor Dictated Date: 11/15/2024 11:46 ET Assigned Physician: Gerardo Taylor Reviewed and Electronically Signed By: Gerardo Taylor Signed Date: 11/15/2024 11:48 ET Workstation ID: [id number] Transcribed By: Self Edit Transcribed Date: 11/15/2024 11:46 ET Narrative 11/15/2024 11:48 AM EDT EXAMINATION: CHEST CLINICAL INFORMATION: Acute cough COMPARISON: Frontal view 10/13/24 TECHNIQUE: 2 views of the chest FINDINGS: There is minimal rotation toward the right. There is ectasia of the aortic arch and some tortuosity of the descending aorta. The cardiac size is within normal limits. There is likely a small hiatal hernia. There is no hilar mass or vascular congestion. There are large lung volumes. There is no acute pneumonia. There is some biapical thickening without underlying bone destruction. There are surgical clips in the epigastric region. Procedure Note Gerardo Taylor MD - 11/15/2024 EXAMINATION: CHEST CLINICAL INFORMATION: Acute cough COMPARISON: Frontal view 10/13/24 TECHNIQUE: 2 views of the chest FINDINGS: There is minimal rotation toward the right. There is ectasia of the aorticarch and some tortuosity of the descending aorta. The cardiac size iswithin normal limits. There is likely a small hiatal hernia. There is no hilar mass or vascular congestion. There are large lungvolumes. There is no acute pneumonia. There is some biapical thickeningwithout underlying bone destruction. There are surgical clips in the epigastric region. IMPRESSION: No pneumonia or edema. Large lung volumes. -------- FINAL REPORT -------- Dictated By: Gerardo Taylor Dictated Date: 11/15/2024 11:46 ET Assigned Physician: Gerardo Taylor Reviewed and Electronically Signed By: Gerardo Taylor Signed Date: 11/15/2024 11:48 ET Workstation ID: [id number] Transcribed By: Self Edit Transcribed Date: 11/15/2024 11:46 ET us Teri Hawkins [employer] IMG XR PROCEDURES Final Result * STRESS ECHOCARDIOGRAM EXERCISE (10/17/2024 2:10 PM EDT) Exercise/injec tion duration (min) 7 CV PACS STRESS Exercise/injec tion duration (sec) 9 CV PACS STRESS Peak SBP 120 mmHg CV PACS STRESS Peak DBP 70 mmHg CV PACS STRESS Peak HR 129 bpm CV PACS STRESS Baseline HR 82 bpm CV PACS STRESS Baseline SBP 100 mmHg CV PACS STRESS Baseline DBP 70 mmHg CV PACS STRESS Estimated workload 10.1 METS CV PACS STRESS Percent HR 85 % CV PACS STRESS Rate Pressure Product 15,480.0 mmHg*bpm CV PACS STRESS BSA 1.66 m2 CV PACS STRESS Target HR 128 bpm CV PACS STRESS Angina Index 0 CV PACS STRESS Max HR Percent 85 % CV PA CS STRESS Anatomical Region Laterality Modality Ultrasound 10/17/2024 1:38 PM EDT 10/17/2024 1:38 PM EDT Narrative 10/17/2024 5:40 PM EDT Stress ECG was normal. Exercise stress test was performed. Exercise capacity was above average. Normal blood pressure and heart rate response. Normal stress test. The patient exercised well. She went over 7 minutes. She had no symptoms. There were no EKG changes. Normal augmentation of contractility in all wall segments. Trivial valvular regurgitation seen as noted below. Left Ventricle Left ventricle cavity size is normal. Wall thickness is normal. Systolic function is normal with an ejection fraction of 55-60%. There are no regional LV wall motion abnormalities. Unable to assess diastolic function. Right Ventricle Right ventricle cavity appears normal. Systolic function is normal. Left Atrium Left atrium cavity size is normal. Right Atrium Right atrium cavity is normal. IVC/SVC Inferior vena cava was not well visualized. Mitral Valve Mitral valve structure is normal. There is trace regurgitation. There is no evidence of mitral valve stenosis. Tricuspid Valve Tricuspid valve structure is normal. There is mild regurgitation. There is no evidence of tricuspid valve stenosis. Normal Aortic Valve Number of aortic valve cusps cannot be determined. There is mild regurgitation with a centrally directed jet. There is no evidence of aortic valve stenosis. Pulmonic Valve The pulmonic valve was not assessed. Unable to assess pulmonic valve regurgitation and stenosis due to poor Doppler exam. Ascending Aorta The aorta was not well visualized. Pericardium Pericardium appears normal. Study Details Overall the study quality was adequate. Stress Findings A Fabian protocol stress test was performed. Overall, the patient's exercise capacity was above average. Total stress time was 7 min and 9 sec. The patient experienced no angina during the test. The test was stopped because the patient experienced fatigue. The patient's hemodynamic response was adequate for diagnosis. Blood pressure demonstrated a normal response. Heart rate demonstrated a normal response. Onset of symptoms occurred at Stage 2 of the protocol. The patient reported fatigue during the stress test. ECG 69-year-old female with atypical chest pain; rule out ischemia. No previous cardiac events. Cardiac risk factors include hyperlipidemia and positive family history of coronary artery disease. Baseline ECG shows normal sinus rhythm. There were no arrhythmias during stress. There is no significant ST abnormalities during stress. There were no arrhythmias during recovery. ST changes returned to normal during recovery. The result of the stress ECG was negative for ischemia. Echo Post Stress Left ventricular cavity size decreased from baseline. Left ventricular systolic function improved from baseline. Tanmay Kay MD CV ECHO PROCEDURES Final Result * External Xray Report (10/15/2024) Anatomical Region Laterality Modality Radiographic Sania ging Provider [facility] IMG XR PROCEDURES Final Result * ECG 12 lead (10/03/2024 1:30 PM EDT) Ventricular Rate ECG 61 BPM GEMUSE Atrial Rate 61 BPM GEMUSE P-R Interval 142 ms GEMUSE QRS Duration 90 ms GEMUSE Q-T Interval 412 ms GEMUSE QTc 414 ms GEMUSE P Wave [place] 54 degrees GEMUSE R [place] 32 degrees GEMUSE T [place] 37 degrees GEMUSE ECG Interpretation Normal sinus rhythm Normal ECG When compared with ECG of 02-MAR-2021 01:17, No significant change was found Confirmed by Caleb KAY, TANMAY ([id number]) on 10/03/2024 2:03:17 PM GEMUSE 10/03/2024 1:30 PM EDT 10/03/2024 2:03 PM EDT us Tanmay Kay MD ECG ORDERABLES Final Result GEMUSE * Vascular US duplex lower extremity venous insufficiency bilateral (09/19/2024 12:31 PM EDT) Left GSK mami 0.25 cm CV [facility] LAB Left GSDC mami 0.19 cm CV VAS LAB Left GSMT mami 0.24 cm CV VAS LAB Left GSPC mami 0.16 cm CV VAS LAB Left GSPT mami 0.28 cm CV VAS LAB Left SFJ Diameter 0.67 cm CV VAS LAB Left SSMC mami 0.17 cm CV VAS LAB Left SSPC mami 0.22 cm CV VAS LAB Right GSK mami 0.19 cm CV VAS LAB Right GSDC mami 0.23 cm CV VAS LAB Right GSMT mami 0.24 cm CV VAS LAB Right GSPC mami 0.17 cm CV VAS LAB Right GSPT mami 0.29 cm CV VAS LAB Right SFJ Diameter 0.64 cm CV VAS LAB Right SSMC mami 0.15 cm CV VAS LAB Right SSPC mami 0.19 cm CV VAS LAB Left com fem reflux 889 ms CV VAS LAB Left GSPC reflux 650 ms CV VAS LAB Left GSDC reflux 550 ms CV VAS LAB Anatomical Region Laterality Modality Vascular, Abdomen Ultrasound Narrative 09/20/2024 4:07 PM EDT Left lower extremity: There is evidence of a Noriega's cyst in the popliteal fossa. RIGHT. 1. No evidence of deep vein thrombosis. 2. The saphenofemoral junction, common femoral, femoral, and popliteal veins are competent. 3. No superficial venous thrombosis. 4. No venous reflux noted in the saphenous vein. 5. No venous reflux noted in the greater saphenous vein. LEFT. 1. No evidence of deep vein thrombosis. 2. The saphenofemoral junction, femoral, and popliteal veins are competent. Common femoral vein with 0.9 seconds of reflux. 3. No superficial venous thrombosis. 4. No venous reflux noted in the small saphenous vein. 5. Mild, 0.7 and 0.6 seconds, of reflux in the infrageniculate proximal and distal greater saphenous vein. Otherwise, no venous reflux noted in the greater saphenous vein. 6. Noriega's cyst in the popliteal fossa as described below. Right Lower Venous No evidence of deep vein thrombosis in the common femoral, deep femoral, proximal femoral, mid femoral, distal femoral, popliteal, greater saphenous, small saphenous, posterior tibial and peroneal veins of the right leg. The vessels showed compressibility. Interrogation showed phasic and spontaneous Doppler signals. Right Venous Insufficiency Duplex The exam was performed with the patient in reverse Trendelenburg. Left Lower Venous No evidence of deep vein thrombosis in the common femoral, deep femoral, proximal femoral, mid femoral, distal femoral, popliteal, greater saphenous, small saphenous, posterior tibial and peroneal veins of the left leg. The vessels showed compressibility. Interrogation showed phasic and spontaneous Doppler signals. There is evidence of a Noriega's cyst in the left popliteal fossa measuring 4.21 x 1.37 x 2.99cm. Left Venous Insufficiency Duplex The exam was performed with the patient in reverse trendelenburg. Crisis Nurse Details A ramos scale, color and doppler analysis ultrasound was performed. During the study longitudinal and transverse views were obtained. Pulsed wave doppler was performed. Lindy NEW CV VASCULAR PROCEDURES Final Result * Depression Screening (01/14/2024) [facility] Depression Screening abstracted Result [facility] Historical Provider HEALTH MAINTENANCE Final Result * Colonoscopy (06/16/2022) [facility] Colonoscopy no interpretation , abstracted Anatomical Region Laterality Modality Other Historical Provider HEALTH MAINTENANCE Final Result from Last 3 Months or Most Recently Relevant to Health Maintenance Insurance [employer] MED[employer] Member Subscriber Plan / Payer (Ef fective 2020-Present) Name:Simone Perez Relation to Subscriber:Self Name:Simone Perez Payer ID:[id number] Group ID:[id number] Type:Not on file Address: [address] [place] [id number] MEDICA[place] - [place] Care Teams [employer] In[employer] Relationship Specialty Start Date End Date Deepali Suárez MD [address] [address] PCP - General Internal Medicine 02/18/24
== END 2024-11-30 14:30 | disposition home or self-care (01) ==
LOC: HO.MAMMO 14:29
PROVIDERS: PCP Internal Medicine; Visit Provider Student in an Organized Health Care Education/Training Program
DX: M81.0 Age-related osteoporosis without current pathological fracture (principal)
CPT/HCPCS: 77080

== ENCOUNTER → 2024-11-30 14:30 | Outpatient (BNV) | payer OTHER, SELFPAY | PROVIDERS: PCP Internal Medicine; Visit Provider Radiology Diagnostic Radiology | DX: E28.39 Other primary ovarian failure (principal) | CPT/HCPCS: 77080 ==

== ENCOUNTER 2025-02-21 13:07 | Outpatient (AMB) | payer OTHER, SELFPAY ==
--- NOTE | 2025-02-21 13:10 | MHC.OFFVIS ---
Vital Signs 02/21/25 13:21 Height 5 ft 4 in Weight 138 lb 7.205 oz BMI 23.8 BP 130/80 Blood Pressure Location Lt brachial Position Sitting Pulse 86 Pulse Source Pulse Oximeter Pulse Oximetry (%) 98 Oxygen Delivery Method Room Air Intake Visit Reasons: LT shoulder injection Intake Note: Patient presents for LT shoulder injection follow up. Allergies penicillin V Allergy (Intermediate, Verified 02/21/25 13:16) Rash Sulfa (Sulfonamide Antibiotics) Allergy (Intermediate, Verified 02/21/25 13:16) Rash morphine Allergy (Mild, Verified 02/21/25 13:16) Dizziness Medication List - Last Reconciled 02/21/25 by Germaine Welch MD acetaminophen ER 650 mg PO Q8H PRN albuterol sulfate 90 mcg/actuation (Ventolin HFA) 0 mcg inhalation betamethasone dipropionate 0.05% 1 appl topical BID buspirone 10 mg PO BID PRN cholecalciferol (vitamin D3) 1,250 mcg PO QWEEK 90 days esomeprazole magnesium 20 mg PO DAILY fluticasone propionate 50 mcg/actuation 0 mcg intranasal heating pads As directed hydrocortisone 2.5% topical ketorolac 0.5% 1 drp ophthalmic (eye) BID ketotifen fumarate 0.025%(0.035%) drps ophthalmic (eye) lorazepam 0.5 mg PO BEDTIME meloxicam 15 mg PO DAILY PRN polyvinyl alcohol 1.4% 1 drp ophthalmic (eye) DAILY rosuvastatin 20 mg PO DAILY sertraline (Zoloft) 100 mg PO DAILY sertraline 25 mg PO DAILY simethicone (Gas Relief Extra Strength) mg PO tramadol 50 mg PO QID PRN triamcinolone acetonide 0.1% appl topical HPI Comments Details: Patient is 69 y.o. female with osteoporosis and polyarticular osteoarthritis here today for follow up Interval History: Patient last seen 10/14/24 with me - On meloxicam 15mg daily, Tramadol 50mg qid and Tylenol 650mg q8hr - left shoulder pain after fall 1 week ago. Would like an XR - still with hand pain. Did not go to OT, did not get any call - does not know when her last DEXA scan was - XR ordered for left shoulder Today - On meloxicam 15mg daily, Tramadol 50mg qid and Tylenol 650mg q8hr - Was started on high dose Vit D after last visit due to severe Vit D deficiency - left shoulder pain Rheumatologic History: Osteoarthritis Current Rheumatology Medication(s): Meloxicam 15mg daily Tramadol 50mg qid Tylenol 650mg q8hr [facility] Medical History Hypovitaminosis D Surgical History Hx of knee surgery H/O arthroscopic knee surgery Hx of section Hx of tonsillectomy Hx of hysterectomy Hx of appendectomy Family History Father Cancer Mother CVD (cardiovascular disease) Social History Alcohol intake: never Patient Tobacco Use Status: Never used Tobacco Review of Systems Narrative Review of Systems Constitutional: Denies fever, chills, weight loss ENT: Denies vision changes, eye pain or eye redness, dental caries, dry mouth GI: Denies nausea, vomiting, diarrhea, abdominal pain, change in BM Pulm: Denies SOB, MANE, hemoptysis, wheezing Cards: Denies chest pain, palpitations Skin: Denies Raynaud's, rash, nail changes, photosensitivity, NYLON OPERATOR: Denies headaches, weakness, paresthesias, recurrent falls MSK: as per HPI All other systems reviewed and are unremarkable except noted above Physical Exam Exam Exam: Vital signs reviewed Physical Examination CONSTITUITIONAL Patient alert and cooperative. Well appearing and in no apparent painful distress MSK Hands Right Hand: Able to make a fist. No swelling or tenderness to palpation of the MCPs, PIPs or DIPs. Left Hand: Able to make a fist. No swelling or tenderness to palpation of the MCPs, PIPs or DIPs. Herbedens nodes noted bilaterally Wrists Right Wrist: Full ROM to flexion and extension. No swelling or TTP Left Wrist: Full ROM to flexion and extension. No swelling or TTP Elbows Right Elbow: Full ROM. No swelling or TTP. No TTP of the medial epicondyle. No TTP of the lateral epicondyle Left Elbow: Full ROM. No swelling or TTP. No TTP of the medial epicondyle. No TTP of the lateral epicondyle Shoulders Right shoulder: No swelling noted. No TTP of the AC joint. No TTP of the subacromial bursa. No TTP of the posterior shoulder Left shoulder: Decreased ROM. No swelling noted. No TTP of the AC joint. TTP of the subacromial bursa. No TTP of the posterior shoulder Knees Right knee: Full ROM. No swelling noted. No TTP of the knee joint line. No TTP of pes anserine bursa Left knee: Full ROM. No swelling noted. No TTP of the knee joint line. No TTP of pes anserine bursa. Crepitations felt bilaterally Ankles Right ankle: Good ankle dorsiflexion and plantar flexion. No swelling. No TTP of the ankle joint Left ankle: Good ankle dorsiflexion and plantar flexion. No swelling. No TTP of the ankle joint Feet Right foot: Negative squeeze test Left foot: Negative squeeze test Tender points? No tenderness to palpation of the bilateral trapezius, supraspinatus, anterior costochondral junctions, bilateral suboccipital muscle insertions SKIN No rashes Vital Signs: Last Vital Signs Pulse 86 02/21/25 13:21 BP 130/80 02/21/25 13:21 Pulse Ox 98 02/21/25 13:21 Oxygen Delivery Method Room Air 02/21/25 13:21 BMI result Body Mass Index 23.8 Office Procedures AMB Joint Injection/Aspiration Joint Injection/Aspiration Details: Procedure was explained to the patient and informed consent was obtained. ? Risks associated with the procedure were discussed with the patient including but not limited to bleeding, infection, drug reactions and reactions to the topical anesthetic. Patient made aware of signs to look out for infectious complications. The area of interest was identified and confirmed with patient. ?This was subsequently cleaned with chlorhexidine x 2. ? The area was then anesthetized using ethyl chloride spray. 40 mg Kenalog with 1 cc 1% lidocaine was injected without issue. ?Minimal to no bleeding. ?Patient tolerated procedure. Primary Site: left shoulder (left subacromial bursa) Prep: site was prepped using aseptic technique and ethochloride spray was applied Injected: 40 mg of, Kenalog, with 1 mL of and in the subcromial space Procedure: The patient tolerated the procedure well Coding 73964 - Glenohumeral/Tronchanteric Bursa/Intraarticular Procedure code (CPT) selection complete Office Meds lidocaine (PF) 10 mg/mL (1 %) injection solution Performing Provider: Germaine Welch MD Performing Location: [facility] Administered by: Rosita Tejeda RN on 02/21/25 14:10 Dose Route Admin Location Dispensed Lot Number Expiration Date ND Examination Supervisor 1 mL intrabursal left subacromial bursa 2 mL [id number] 07/18/26 90581-413-77 [employer] Total Dispensed Waste 2 mL 50 % Kenalog 40 mg/mL suspension for injection Performing Provider: Germaine Welch MD Performing Location: [facility] Administered by: Rosita Tejeda RN on 02/21/25 14:10 Dose Route Admin Location Dispensed Lot Number Expiration Date [facility] Examination Supervisor 40 mg intrabursal left shoulder 1 mL [id number] 10/17/26 [address]-8 [employer] Total Dispensed Waste 1 mL 0 % Results Reviewed Results Reviewed: Laboratory Tests 12/04/23 10/06/24 13:38 11:08 WBC 5.3 RBC 4.42 Hgb 13.2 Hct 40.9 Plt Count 267 ESR 10 Sodium 145 Potassium 4.0 Chloride 107 Carbon Dioxide 30 H BUN 15 Creatinine 0.74 Total Bilirubin 0.7 AST 27 ALT 21 C-Reactive Protein < 0.10 25-OH Vitamin D Total 23 L 12.4 L DEXA 11/2022 FINDINGS: The bone mineral density of the lumbar spine is 0.952 g/cm2, corresponding to a T-score of -1.9, and a Z-score of -0.1. This is indicative of osteopenia. The bone mineral density of the left total hip is 0.842 g/cm2, corresponding to a T-score of -1.3, and a Z-score of 0.2. This is indicative of osteopenia. The bone mineral density of the left femoral neck is 0.798 g/cm2, corresponding to a T-score of -1.7, and a Z-score of 0.1. This is indicative of osteopenia. FRACTURE RISK: The FRAX index suggests a risk of major osteoporotic fracture of 14.6%, and of hip fracture 2.9%. MR L spine 08/2023 FINDINGS: There is slight grade 1 anterolisthesis of L5 on S1. Alignment is otherwise normal. Vertebral body heights are preserved. There are type II degenerative endplate changes at L5-S1. Bone marrow signal intensity is otherwise unremarkable. There is disc desiccation at multiple levels without substantial loss of intervertebral disc height. The tip of the conus medullaris is located at L1. No mass effect on the conus. Visualized distal cord signal intensity is normal. At L1-L2 there is a right central annular fissure associated with a slightly bulging disc. No canal stenosis. No mass effect on the traversing or foraminal nerve roots. At L2-L3 there is a left subarticular to foraminal protrusion superimposed upon a bulging disc. Bilateral facet degenerative change. No canal stenosis. Subtle abutment of the left traversing L3 nerve roots. No foraminal nerve root compression. At L3-L4 there is a bulging disc. Bilateral facet degenerative change. No canal stenosis. No mass effect on the traversing or foraminal nerve roots. At L4-L5 there is an asymmetrically bulging disc to the left. Bilateral facet degenerative change. No canal stenosis. Asymmetric narrowing of the left subarticular zone causes abutment and possible compression of the left traversing L5 nerve roots. No foraminal nerve root compression. At L5-S1 there is a diffusely bulging disc. Bilateral facet degenerative change. No canal stenosis. No mass effect on the traversing or foraminal nerve roots. Limited visualization of the retroperitoneal anatomy reveals no abnormal finding. Psoas and paraspinal muscle groups are symmetric. IMPRESSION: There is multilevel degenerative spondylosis of the lumbar spine with slight grade 1 anterolisthesis of L5 on S1 related to facet degenerative changes at this level. No canal stenosis. Asymmetric narrowing of the left subarticular zone at L4-L5 causes abutment and possible compression of the left traversing L5 nerve roots. There is also subtle abutment of the left traversing L3 nerve roots related to degenerative changes at L2-L3. Otherwise no substantial mass effect on the traversing or foraminal nerve roots elsewhere within the lumbar spine. Assessment & Plan Assessment & Plan (1) Osteoporosis: Comment: DEXA 11/2024. AP Spine -1.9, Left femur neck -1.7, Left femur total -1.3. FRAX 14.6/2.9 [facility] 2017-November 2020, Restarted 12/2021- August History of fracture in the left hand age 64. Code(s): M81.0 - Age-related osteoporosis without current pathological fracture Category: Medical Qualifiers: Osteoporosis type: age-related Presence of current pathological fracture: without current pathological fracture Qualified Code(s): M81.0 - Age-related osteoporosis without current pathological fracture Plan: #Osteoporosis Patient is a 69 y.o. female with osteoporosis here today for follow up. Not currently on any therapy Vitamin-D still low Bone density with osteopenia just at the cusp of meeting criteria for treatment. We will try to get vitamin-D to goal prior to discussing treatment Plan - Vitamin D 50, 000U weekly - RTC 6 months - Labs before visit: CMP and Vit D (2) Osteoarthritis: Code(s): M19.90 - Unspecified osteoarthritis, unspecified site Category: Medical Qualifiers: Osteoarthritis location: multiple joints Osteoarthritis type: primary Qualified Code(s): M15.0 - Primary generalized (osteo)arthritis Plan: #Polyarticular OA Polyarticular OA. Left shoulder subacromial bursa injection Plan - Meloxicam 15mg daily - Tylenol 650mg q8hr - Tramadol 50mg qid Plan I spent 30 minutes reviewing the record and labs, taking a history, examining the patient, discussing the treatment plan, ordering diagnostic work up and documenting in the medical record Orders: Orders AMB Joint Injection/Aspiration Today M75.52 - Bursitis of left shoulder Vitamin D 25-OH Total 6 Months Z79.899 - [facility] [place] [facility] ([facility] drug therapy Comprehensive Met. Panel 6 Months Z79.899 - Other [place] [facility] drug therapy Medications: Refilled tramadol 50 mg PO QID PRN 120 tabs 5RF pain M47.816 - Spondylosis without myelopathy or radiculopathy, lumbar region cholecalciferol (vitamin D3) 1,250 mcg PO QWEEK 13 caps 1RF 90 days E55.9 - Vitamin D deficiency, unspecified meloxicam 15 mg PO DAILY PRN 60 tabs 0RF pain M19.041 - Primary osteoarthritis, right hand, M19.042 - Primary osteoarthritis, left hand Coding Level of Care Code Est Pt Level 4 (26361) Diagnoses Age-related osteoporosis without current pathological fracture M81.0 Osteoporosis type: age-related Presence of current pathological fracture: without current pathological fracture Primary osteoarthritis involving multiple joints M15.0 Osteoarthritis location: multiple joints Osteoarthritis type: primary CPT Codes Coding - Joint 7: 45537 - Glenohumeral/Tronchanteric Bursa/Intraarticular ([id number])
[2025-02-21 13:21] VITALS: BP 130/80; PULSE 86; O2SAT 98; BMI 23.8
--- OUTSIDE RECORDS SUMMARY | 2025-02-21 15:56 | XMS_ITS | Encounter Summary ---
Author Organization [email or web address] [facility] Address [address] [place] [address] Care Team Providers Care Design Tech Name Role Phone Deepali Suárez MD Primary Care Provider [phone] Encounter Details Date Type Department Care Team Description 09/15/2023 Telephone Gastroenterology - [place] [address] [facility] [address] [place] [address] Angeles Walters DScPAS Social History Tobacco Use Types Packs/Day Years Used Date Smoking Tobacco: Never Smokeless Tobacco: Never Alcohol Use Standard Drinks/Week Comments No 0 (1 standard drink = 0.6 oz pur e alcohol) Sex Assigned at Date Recorded Not on file Job Start Date Occupation Industry Not on file Not on file Not on file documented as of this encounter Miscellaneous Notes * Telephone Encounter - Juliane Oreilly - 09/17/2023 11:23 AM EDT Left message for patient to call back and schedule follow up documented in this encounter Plan of Treatment Not on file documented as of this encounter Visit Diagnoses Not on filedocumented in this encounter Care Teams Design Tech Relationship Specialty Start Date End Date Deepali Suárez MD PCP - General Internal Medicine 01/28/19 documented as of this encounter
--- OUTSIDE RECORDS SUMMARY | 2025-02-21 15:56 | XMS_ITS | Encounter Summary ---
Author Organization [employer] [facility] Address [address] [place] [address] Care Team Providers Care Railway Traction Line Worker Name Role Phone Deepali Suárez MD Primary Care Provider [phone] Reason for Visit * Reason Onset Date Comments Provider Call Back 06/11/2023 Encounter Details Date Type Department Care Team Description 06/11/2023 Telephone Gastroenterology - [address] [place] [address] Angeles Walters DScPAS Provider Call Back Social History Tobacco Use Types Packs/Day Years [...] encounter Miscellaneous Notes * Telephone Encounter - Starr Henriquez - 06/11/2023 3:04 PM EST Patient is calling in, she feels very bloated and gasy especially at night. Patient stomach feels like her stomach is swishy. Patient is having a lot of discomfort in her stomach documented in this encounter Plan of Treatment Not on file documented as of this encounter Visit Diagnoses Not on filedocumented in this encounter Care Teams Railway Traction Line Worker Relationship Specialty Start Date End Date Deepali Suárez MD PCP - General Internal Medicine 01/28/19 documented as of this encounter
--- OUTSIDE RECORDS SUMMARY | 2025-02-21 15:56 | XMS_ITS | Encounter Summary ---
Author Organization [employer] [facility] Address [address] [place] [address] Care Team Providers Care Saas Architect Name Role Phone Deepali Suárez MD Primary Care Provider [phone] Reason for Visit * Reason Comments E-prescribe Rx Request Encounter Details Date Type Department Care Team Description 10/11/2023 Refill Gastroenterology - [place] [address] [facility] [address] [place] [address] Angeles Walters DScPAS E-prescribe Rx Request Social History Tobacco Use Types Packs/Day Years [...] encounter Miscellaneous Notes * Telephone Encounter - Britany Szymanski - 10/12/2023 8:19 AM EDT Dejah- 09/15/23 Nov- none documented in this encounter Plan of Treatment Not on file documented as of this encounter Visit Diagnoses Not on filedocumented in this encounter Care Teams Saas Architect Relationship Specialty Start Date End Date Deepali Suárez MD PCP - General Internal Medicine 01/28/19 documented as of this encounter
--- OUTSIDE RECORDS SUMMARY | 2025-02-21 15:56 | XMS_ITS | Encounter Summary ---
Author Organization [employer] [facility] Address [address] [place] [address] Care Team Providers Care Electric Power Line Repairer Name Role Phone Deepali Suárez MD Primary Care Provider [phone] Reason for Visit * Reason Comments E-prescribe Rx Request Encounter Details Date Type Department Care Team Description 09/16/2023 Refill Pulmonology - [place] [address] [facility] [address] [place] [phone] Teri Hawkins, KAREN [address] [facility] [address] [place] [phone] E-prescribe Rx Request Social History Tobacco Use [...] encounter Miscellaneous Notes * Telephone Encounter - Kiki Romano - 09/16/2023 8:15 AM EDT JOSH 07/02/23 NOV 01/06/24 documented in this encounter Plan of Treatment Not on file documented as of this encounter Visit Diagnoses Diagnosis Mild persistent asthma without complication Unspecified asthma documented in this encounter Care Teams Electric Power Line Repairer Relationship Specialty Start Date End Date Deepali Suárez MD PCP - General Internal Medicine 01/28/19 documented as of this encounter
--- OUTSIDE RECORDS SUMMARY | 2025-02-21 15:56 | XMS_ITS | Encounter Summary ---
Author Organization [employer] [facility] Address [address] [place] [address] Care Team Providers Care Furnace Combustion Analyst Name Role Phone Deepali Suárez MD Primary Care Provider [phone] Encounter Details Date Type Department Care Team Description 02/24/2022 Orders Only Internal Medicine - [address], [address] [place] [address] Deepali Suárez MD [address] [place] [phone] Left inguinal pain Social History Tobacco Use Types Packs/Day Years Used Date Smoking Tobacco: Never Smokeless Tobacco: Never Alcohol Use Standard Drinks/Week Comments No 0 (1 standard drink = 0.6 oz pur e alcohol) Sex Assigned at Date Recorded Not on file Job Start Date Occupation Industry Not on file Not on file Not on file COVID-19 Exposure Response Date Recorded In the last 10 days, have yo u been in contact with someone who was confirmed or suspected to have Coronavirus/COVID-19? No / Unsure 02/27/2022 2:06 PM EST documented as of this encounter Plan of Treatment Not on file documented as of this encounter Procedures Procedure Name Priority Date/Time Associated Diagnosis Comments CHG RADEX HIP UNILATERAL WITH PELVIS 2-3 VIEWS Routine 02/19/2022 Left inguinal pain documented in this encounter Results * RADEX HIP UNILATERAL WITH PELVIS 2-3 VIEWS (02/19/2022) Deepali Suárez MD RADIOLOGY documented in this encounter Visit Diagnoses Diagnosis Left inguinal pain Abdominal pain, left lower quadrant documented in this encounter Care Teams Furnace Combustion Analyst Relationship Specialty Start Date End Date Deepali Suárez MD PCP - General Internal Medicine 01/28/19 documented as of this encounter
--- OUTSIDE RECORDS SUMMARY | 2025-02-21 15:56 | XMS_ITS | Encounter Summary ---
Author Organization [facility] Address [address] [place] [address] Care Team Providers Care Generation Technologist Name Role Phone Deepali Suárez MD Primary Care Provider [phone] Encounter Details Date Type Department Care Team Description 10/18/2019 Home Health Certification Medical Records [address] [place] [address] [facility] [address] [place] [address] Social History Tobacco Use Types Packs/Day Years Used Date Smoking Tobacco: Never Smokeless Tobacco: Never Alcohol Use Standard Drinks/Week Comments No 0 (1 standard drink = 0.6 oz pur e alcohol) Sex Assigned at Date Recorded Not on file Job Start Date Occupation Industry Not on file Not on file Not on file documented as of this encounter Plan of Treatment Not on file documented as of this encounter Visit Diagnoses Not on filedocumented in this encounter Care Teams Generation Technologist Relationship Specialty Start Date End Date Deepali Suárez MD PCP - General Internal Medicine 01/28/19 documented as of this encounter
--- OUTSIDE RECORDS SUMMARY | 2025-02-21 15:56 | XMS_ITS | Encounter Summary ---
Author Organization [employer] [facility] Address [address] [place] [address] Care Team Providers Care Rescue Worker Name Role Phone Deepali Suárez MD Primary Care Provider [phone] Reason for Visit * Reason Comments E-prescribe Rx Request Encounter Details Date Type Department Care Team Description 11/29/2023 Refill Pulmonology - [place] [address] [facility] [address] [place] [phone] Teri Hawkins, KAREN [address] [facility] [address] [place] [phone] E-prescribe Rx Request Social History Tobacco Use [...] encounter Miscellaneous Notes * Telephone Encounter - Kailey Miller - 11/30/2023 8:30 AM EDT Dejah: 07/02/2023 Nov: 01/06/2024 documented in this encounter Plan of Treatment Not on file documented as of this encounter Visit Diagnoses Diagnosis Mild persistent asthma without complication Unspecified asthma PND (post-nasal drip) Postnasal drip Seasonal allergies Allergic rhinitis, cause unspecified documented in this encounter Care Teams Rescue Worker Relationship Specialty Start Date End Date Deepali Suárez MD PCP - General Internal Medicine 01/28/19 documented as of this encounter
--- OUTSIDE RECORDS SUMMARY | 2025-02-21 15:56 | XMS_ITS | Encounter Summary ---
Author Organization [facility] [facility] Address [address] [place] [address] Care Team Providers Care Consultant [employer]. Vice President [employer]Ex ) Name Role Phone Deepali Suárez MD Primary Care Provider [phone] Reason for Visit * Reason Onset Date Comments Faxed Refill 10/24/2019 Encounter Details Date Type Department Care Team Description 10/24/2019 Refill Pulmonology - [place] [address] [facility] [address] [place] [phone] Teri Hawkins, KAREN [address] [facility] [address] [place] [phone] Faxed Refill Social History Tobacco Use Types Packs/Day Years [...] encounter Miscellaneous Notes * Telephone Encounter - Anna Chin - 10/24/2019 3:01 PM EDT [id number] * Telephone Encounter - Butch Diamond - 10/24/2019 2:46 PM EDT [id number] documented in this encounter Plan of Treatment Not on file documented as of this encounter Visit Diagnoses Diagnosis PND (post-nasal drip) Postnasal drip Mild persistent asthma without complication Unspecified asthma documented in this encounter Care Teams Consultant [employer]. Vice President [employer] (Ex ) Relationship Specialty Start Date End Date Deepali Suárez MD PCP - General Internal Medicine 01/28/19 documented as of this encounter
--- OUTSIDE RECORDS SUMMARY | 2025-02-21 15:56 | XMS_ITS | Encounter Summary ---
Author Organization [facility] Address [address] [place] [address] Care Team Providers Care Seasonal Driver Name Role Phone Deepali Suárez MD Primary Care Provider [phone] Encounter Details Date Type Department Care Team (Late st Contact Info) Description 01/05/2025 Lab Requisition [facility] - Main Lab [address] [facility] [place] [address] Harry Rodriguez, PA [address] [place] [address] Urinary tract infection, site not specified; Dysuria Social History Tobacco Use Types Packs/Day Years [...] Record ed Within the last 3 months, mayank sarabia many times did you visit the emergency [...] for your loved ones. For example, child welfare specialist or elderly care for an older adult? [...] Date Recorded What is your living situation? Unrecognized valu e 09/27/2024 Comments No Sex and Gender Information Value Date Recorded Sex Assigned at Female 07/22/2024 2:34 PM EDT Legal Sex Female 10:11 AM EDT Gender Identity Female 07/22/2024 2:34 PM EDT Sexual Orientation Not on file documented as of this encounter Plan of Treatment Upcoming Encounters Date Type Department Care Team (Late st Contact Info) Description 03/01/2025 10:30 AM EST Clinical Support Internal Medicine - [address] [place] [address] 03/23/2025 1:15 PM EST Office Visit Internal Medicine - [address] [place] [phone] Deepali Suárez MD [address] [place] [phone] 05/22/2025 2:20 PM EST Office Visit Gastroenterology - [address] [facility] [address] [facility] [address] [place] [address] Angeles Walters PA [address] [facility] [address] [place] [address] 05/29/2025 2:45 PM EST Office Visit Pulmonology - [place] [address] [facility] [address] [place] [phone] Teri Hawkins NP [address] [place] [phone] 08/09/2025 10:00 AM EDT Ancillary Procedure [facility] - [facility] [address] [facility] [address] [place] [phone] 10/13/2025 2:00 PM EDT Office Visit Vascular Surgery - [place] [address] [place] [address] Fartun Lange PA [address] [place] [phone] 12/26/2025 1:00 PM EDT Office Visit Bariatric Surgery - [place] [address] [facility] [address] [place] [phone] Ann Alvarado MD [address] [place] [phone] documented as of this encounter Procedures Procedure Name Priority Date/Time Associated Diagnosis Comments CULTURE URINE Routine 01/05/2025 8:01 AM EDT Urinary tract infection, site not specified Dysuria documented in this encounter Results * (ABNORMAL) Culture urine (01/05/2025 8:01 AM EDT) Culture, Urine 10,000-49,000 CFU/mL Escherichia coli(A) [facility]MENTE 01/07/2025 11:[address] [facility] Comment: This is an edited result. Previous organism was Gram negative bacilli on 01/06/2025 at 0805 EDT. Urine Urine specimen obtained by clean catch procedure / Unknown 01/05/2025 8:01 AM EDT 01/05/2025 1:57 PM EDT Narrative Organism Antibiotic Method Susceptibility Escherichia coli Amoxicillin/Clavulanate CLEMENTE 8 ug/ml: Susceptible Escherichia coli Ampicillin/Sulbactam CLEMENTE >=32 ug/ml: Resistant Escherichia coli Piperacillin/Tazobactam CLEMENTE <=4 ug/ml: Susceptible Escherichia coli Cefazolin (Urine) CLEMENTE 8 ug/ml: Susceptible Escherichia coli Cefoxitin CLEMENTE <=4 ug/ml: Susceptible Escherichia coli Ceftazidime CLEMENTE <=0.5 ug/ml: Susceptible Escherichia coli Ceftriaxone CLEMENTE <=0.25 ug/ml: Susceptible Escherichia coli Cefepime CLEMENTE <=0.12 ug/ml: Susceptible Escherichia coli Meropenem CLEMENTE <=0.25 ug/ml: Susceptible Escherichia coli Amikacin CLEMENTE <=1 ug/ml: Susceptible Escherichia coli Gentamicin CLEMENTE <=1 ug/ml: Susceptible Escherichia coli Ciprofloxacin CLEMENTE 0.5 ug/ml: Intermediate Escherichia coli Levofloxacin CLEMENTE 1 ug/ml: Intermediate Escherichia coli Nitrofurantoin CLEMENTE <=16 ug/ml: Susceptible Escherichia coli Trimethoprim/Sulfamethoxazole CLEMENTE <=20 ug/ml: Susceptible us Harry NEW LAB MICROBIOLOGY - GENERAL ORD ERABLES Final Result [facility] [address] [place] [address], documented in this encounter Visit Diagnoses Diagnosis Urinary tract infection, site not specified Dysuria documented in this encounter Additional Health Concerns Assessment Noted Time PHQ-9 Depression Total Score: 0 11/22/19 25 2:06 PM EDT documented as of this encounter Care Teams Seasonal Driver Relationship Specialty Start Date End Date Deepali Suárez MD [address] [place] [phone] PCP - General Internal Medicine 02/18/24 documented as of this encounter
--- OUTSIDE RECORDS SUMMARY | 2025-02-21 15:56 | XMS_ITS | Clinical Summary ---
Author Organization [facility] Address [address] [place] [address] Care Team Providers Care Strategic Planning Consultant Name Role Phone Deepali Suárez MD Primary Care Provider Allergies Active Allergy Reactions Criticality Noted Date Comments Adhesive 10/30/2017 Other Reaction(s): Redness, Itchy Aspirin GI intolerance 01/26/2025 Latex Itching 01/26/2025 Morphine Other,Dizziness,Unkn ow n,Sweating 11/16/2008 Ibuprofen GI intolerance 01/26/2025 Penicillins Hives,Rash 07/22/2017 Other Reaction(s): Hives/Urticaria Other Reaction(s): rash, itching Sulfa (Sulfonamide Antibiotics) Nausea Only,Rash 07/22/2017 Other Reaction(s): Hives/Urticaria Medications colestipoL (COLESTID) 1 gram tablet 09/16/19 24 Active gabapentin (NEURONTIN) 300 mg capsule Take 1 capsule (300 mg total) by mouth. 04/28/19 23 Active ketorolac (ACULAR) 0.5 % ophthalmic solution Administer 1 drop into affected eye(s). 04/28/19 23 Active ondansetron (ZOFRAN) 4 mg tablet Take 1 tablet (4 mg total) by mouth every 8 (eight) hours if needed. 09/15/19 24 Active coenzyme Q-10 200 mg capsule 04/28/19 23 Active hydrocortisone (bulk)-white petrolatum-psychological examiner al oiL Apply 1 inch topically. 09/15/19 24 Active OCULAR IMPLANT FOR RANIBIZUMAB VTRE Administer 1 drop into affected eye(s). 04/28/19 23 Active diclofenac (VOLTAREN) 1 % topical gel PLEASE SEE ATTACHED FOR DETAILED DIRECTIONS 01/10/20 24 Active LORazepam (ATIVAN) 0.5 mg tablet Take 1 tablet (0.5 mg total) by mouth 1 (one) time each day if needed for anxiety. Active hydrocortisone (ANUSOL-HC) 2.5 % rectal cream PLACE 1 INCH RECTALLY 2 TIMES DAILY. 30 g 3 08/16/19 25 Active rosuvastatin (CRESTOR) 20 mg tablet Take 1 tablet (20 mg total) by mouth 1 (one) time each day. 30 each 11 10/04/19 25 2025 Active magnesium oxide 250 mg magnesium tabletIndication s:Vitamin D deficiency Take 1 tablet (250 mg total) by mouth 1 (one) time each day. 90 tablet 1 10/06/19 25 Active calcium carbonate-vitami n D3 600 mg-10 mcg (400 unit) capsule Take 1 capsule by mouth 2 (two) times a day. 180 each 2 12/01/19 25 Active meclizine (ANTIVERT) 25 mg tablet TAKE 1 TABLET BY MOUTH 3 TIMES A DAY IF NEEDED FOR DIZZINESS. 40 tablet 12/22/19 25 Active incontinence pad, liner, disp padIndications:U rinary incontinence, unspecified type,Urinary tract infection without hematuria, site unspecified 1 each 3 (three) times a day. 120 each 11 01/24/20 25 Active fluticasone propionate (FLONASE) 50 mcg/actuation nasal sprayIndications :Postnasal drip ROCIAR 2 VECES BY NASAL ROUTE A DIARIO 48 mL 3 01/25/20 25 Active montelukast (SINGULAIR) 10 mg tabletIndication s:Postnasal drip,Mild persistent asthma, uncomplicated TAKE 1 TABLET BY MOUTH AT BEDTIME FOR 360 DAYS. 90 tablet 3 01/26/20 25 Active acetaminophen (TYLENOL 8 HOUR) 650 mg 8 hr tablet TAKE 1 CAPLET ORALLY EVERY 8 HOURS NEEDED FOR PAIN 06/19/19 17 Active ketotifen fumarate (ZADITOR) 0.035 % ophthalmic solution PONGA KRISHNA GOTA EN LOS DOS OJOS DOS VECES AL D A Active polyvinyl alcohol (ARTIFICIAL TEARS) 1.4 % ophthalmic solution INSTILL 1 DROP EN LOS DOS OJOS DOS VECES AL D A OR CUANDO SEA NECESARIO Active albuterol HFA (PROAIR HFA ; PROVENTIL HFA ; VENTOLIN HFA) 90 mcg/actuation inhalerIndicatio ns:Postnasal drip,Mild persistent asthma, uncomplicated INHALE 2 PUFFS INTO THE LUNGS EVERY 4 HOURS NEEDED FOR COUGH, WHEEZING OR SHORTNESS OF BREATH. 54 each 1 02/07/20 Active esomeprazole (NexIUM) [address] capsule Take 1 capsule (20 mg total) by mouth 1 (one) time each day before breakfast. Do not open capsule. 30 each 3 02/14/20 25 2025 Active loratadine (CLARITIN) 10 mg tabletIndication s:Postnasal drip,Mild persistent asthma, uncomplicated TOME 1 TABLETA POR VIA ORAL TODOS LOS CORMIER 90 tablet 3 02/17/20 Active fluticasone propionate (FLONASE) 50 mcg/actuation nasal spray USE 2 SPRAYS IN EACH NOSTRIL ONCE DAILY.ONCE SYMPTOMS RESOLVED REDUCE TO 1 SPRAY IN EACH NOSTRIL. 12/26/192024 Discontinued loratadine (CLARITIN) 10 mg tablet TOME KRISHNA TABLETA TODOS LOS CORMIER 11/05/19 24 2024 Discontinued montelukast (SINGULAIR) 10 mg tablet Take 1 tablet (10 mg total) by mouth. 10/25/19 23 2024 Discontinued raloxifene (EVISTA) 60 mg tablet Take 1 tablet (60 mg total) by mouth. 04/28/192024 Discontinued(T herapy completed) Ventolin HFA 90 mcg/actuation inhalerIndicatio ns:Postnasal drip,Mild persistent asthma, uncomplicated INHALE 2 PUFFS INTO THE LUNGS EVERY 4 HOURS NEEDED FOR COUGH, WHEEZING OR SHORTNESS OF BREATH. 54 each 1 07/26/19 25 2024 Discontinued nutritional supplement-fiber liquidIndication s:Vitamin D deficiency,Vitam in B12 deficiency Take 1 each by mouth 2 (two) times a day. 1500 mL 11 09/22/19 25 2024 Discontinued(T herapy completed) incontinence pad, liner, disp padIndications:I nternal hemorrhoids 1 each 3 (three) times a day. 100 each 11 12/22/19 25 2024 Discontinued(R eorder) pantoprazole (PROTONIX) 40 mg EC tablet TOME 1 TABLETA POR VIA ORAL TODOS LOS CORMIER DO NOT CRUSH, CHEW, OR SPLIT 90 tablet 1 12/31/19 25 2024 Discontinued(A lternate therapy) calcium carbonate/vitami n D3 (CALCIUM 600 WITH VITAMIN D3 ORAL) Take by mouth. 2024 Discontinued(D uplicate order) Hospital, Clinic, or Other Facility Administered Medication [...] 09/22/2022 Obstructive sleep apnea 09/06/2018 Overview (01/22/2024): [facility] Home Sleep Apnea Test: Date 08/26/2018; Wt [...] central apneas; without sleep related hypoventilation by 2019 home polysomnogram. - 2020 home study with AL 2. 05/2020 Home Sleep Study did not reveal sleep apnea or nocturnal hypoxia. AL 3. 05/2021 Home Sleep Study did not reveal sleep apnea or nocturnal hypoxia. Dysphagia 12/29/2017 Thyroid nodule 11/30/2017 Cholelithiasis 10/30/2017 Gastroparesis 10/30/2017 Vitamin D deficiency 09/06/2017 Irritable bowel syndrome 09/06/2017 Carpal tunnel syndrome 09/06/2017 DDD (degenerative disc disease), lumbar 09/07/19 Osteopenia 09/06/2017 Glaucoma 09/06/2017 COPD (chronic obstructive pu lmonary disease) ([facility] V24, [facility] V28) 09/06/2017 Assessment & Plan (11/21/2024 10:29 [...] Encounters Date Type Department Care Team Description 02/04/2025 Results Follow-Up Gastroenterology - [place] [address] [facility] [address] [facility] [address] [place] [phone] Courtney Burns DO 02/02/2025 12:41 PM EDT Anesthesia Event [facility] Endoscopy [address] [place] [phone] Armand Fontanez MD 02/02/2025 11:08 AM EDT - 02/02/2025 11:59 PM EDT Hospital Encounter [facility] [address] [place] [phone] Courtney Burns DO Georgette, Nathaniel, CRNA Saliga, Jesse L, MD Abdominal bloating; Gastroesophageal reflux disease without esophagitis Discharge Disposition: Home or Self Care 01/23/2025 2:20 PM EDT Office Visit Pulmonology [address] [phone] Teri Hawkins NP Mild intermittent asthma without complication (Primary Dx); PND (post-nasal drip); Seasonal allergic rhinitis, unspecified trigger; Apical lung scarring 01/18/2025 11:30 AM EDT Clinical Support Internal Medicine [address] [phone] Vitamin B12 deficiency (Primary Dx) 01/17/2025 Results Follow-Up Internal Medicine [address] [phone] Marisa Lowe [place] 01/12/2025 Lab Requisition [facility] [address] [place] [phone] Harry Rodriguez PA Gross hematuria 01/05/2025 Lab Requisition [facility] [address] [place] [phone] Harry Rodriguez PA Urinary tract infection, site not specified; Dysuria 12/28/2024 1:40 PM EDT Office Visit Gastroenterology [address] [phone] Angeles Walters PA RUQ abdominal pain (Primary Dx); Abdominal bloating; Gastroesophageal reflux disease with esophagitis without hemorrhage; Gastroparesis 12/23/2024 11:45 AM EDT Office Visit Bariatric Surgery [address] [phone] Ann Alvarado MD Umbilical hernia without obstruction and without gangrene (Primary Dx); Incisional hernia, without obstruction or gangrene; Right lateral abdominal pain 12/21/2024 1:00 PM EDT Office Visit Internal Medicine [address] [phone] Deepali Suárez MD Right upper quadrant abdominal pain (Primary Dx); Urinary tract infection without hematuria, site unspecified 12/21/2024 Telephone Internal Medicine - [address] [place] [address] Deepali Suárez MD 12/13/2024 2:00 PM EDT Clinical Support Internal Medicine - [address] [place] [address] Gilma Tineo RN Vitamin B12 deficiency (Primary Dx) 12/02/2024 3:28 PM EDT - 12/02/2024 11:59 PM EDT Hospital Encounter [facility] CT Scan [address] [place] [phone] Gastroesophageal reflux disease without esophagitis; RLQ abdominal pain; Irritable bowel syndrome, unspecified type; Gastroparesis Discharge Disposition: Home or Self Care 11/24/[address] [facility] [address] [facility] [address] [place] [phone] Brittany Rodriguez [place] 11/24/2024 Telephone Gastroenterology - [address] [place] [address] Angeles Walters PA 11/21/2024 2:40 PM EDT Lab Draw Station - [address] [place] [phone] Hyperlipemia (Primary Dx); Mixed hyperlipidemia; Vitamin B12 deficiency; Chronic obstructive pulmonary disease, unspecified COPD type (CMS/HCC V24, CMS/HCC V28) 11/21/2024 2:00 PM EDT Office Visit Internal Medicine [address] [place] [address] Deepali Suárez MD Mixed hyperlipidemia (Primary Dx); Vitamin B12 deficiency; Chronic obstructive pulmonary disease, unspecified COPD type (CMS/HCC V24, CMS/HCC V28); Postmenopausal state; Encounter for subsequent annual wellness visit (AWV) in Medicare patient from Last 3 Months Immunizations Immunization Administration Dates Next Due Influenza Quadravalent, MDCK [...] syndrome) COPD (chronic obstructive pu lmonary disease) ([facility] V24, [facility] V28) 09/06/2017 DX:COPD (chronic o bstructive pulmonary disease) ([facility]) Vitamin D deficiency 09/06/2017 DX:Vitamin D deficiency [...] y of sarcoidosis; COMMENT: Hist pulmonary sarcoid Abdominal hernia Family History Medical History Relation Name Comments [...] for your loved ones. For example, child care attendant or elderly care for an older adult? [...] your living situation? Unrecognized valu e 09/27/2024 Interpersonal Safety Answer Date Record ed Physical Abuse Unrecognized value 02/02/2025 Verbal Abuse Unrecognized value 02/02/2025 Comments No Sex and Gender Information Value Date Recorded Sex Assigned at Female 07/22/2024 2:34 PM EDT Legal Sex Female 10:11 AM EDT Gender Identity Female 07/22/2024 2:34 PM EDT Sexual Orientation Not on file Obstetrics History Last Filed Vital Signs Vital Sign Reading Time Taken Comments Blood Pressure 126/77 02/02/2025 1:14 PM EDT Pulse 70 02/02/2025 1:14 PM EDT Temperature 36 C (96.8 F) 02/02/2025 12:54 PM EDT Respiratory Rate 14 02/02/2025 1:14 PM EDT Oxygen Saturation 96% 02/02/2025 1:14 PM EDT Inhaled Oxygen Concentration - - Weight 62.1 kg (137 lb) 02/02/2025 11:39 AM EDT Height 162.6 cm (5' 4 ) 02/02/2025 11:39 AM EDT Body Mass Index 23.52 02/02/2025 11:39 AM EDT Plan of Treatment Upcoming Encounters Date Type Department Care Team (Late st Contact Info) Description 03/01/2025 10:30 AM EST Clinical Support Internal Medicine - [place] [address] [phone] 03/23/2025 1:15 PM EST Office Visit Internal Medicine - [place] 175 [facility] [address] [place] [address] Deepali Suárez MD [address] [place] [phone] 05/22/2025 2:20 PM EST Office Visit Gastroenterology - [address] [facility] 299 [facility] [address] [place] [phone] Angeles Walters PA 299 [facility] [address] [place] [address] 05/29/2025 2:45 PM EST Office Visit Pulmonology - [place] 175 [facility] [address] [place] [address] Teri Hawkins NP [address] [place] [phone] 08/09/2025 10:00 AM EDT Ancillary Procedure [facility] - [address] [place] [address] 10/13/2025 2:00 PM EDT Office Visit Vascular Surgery - [place] [address] [place] [phone] Fartun Lange PA [address] [place] [phone] 12/26/2025 1:00 PM EDT Office Visit Bariatric Surgery - [place] [address] [place] [address] Ann Alvarado MD [address] [place] [phone] Health Maintenance Due Date Last Done Comments RSV Immunization Adult Patients (1 - Risk 50-74 years 1-dose series) 2005 Zoster Vaccines (1 of 2) 2005 Hepatitis C Screening 07/11/2020 Medicare Annual Wellness Visit 07/11/2020 Osteoporosis Screening (Bone Density Screening) 07/11/2020 DTaP,Tdap,and Td Vaccines (3 - Td or Tdap) 04/30/2022 04/30/2012, 04/20/2001 COVID-19 Vaccine (4 - season) 2024 04/28/2021, 08/09/2020, 07/12/2020 Influenza Vaccine (#1) 2024 , 03/24/2023, 02/05/2022, Additional history exists Social Influencers of Health Screening 09/27/2025 09/27/2024 Falls Risk Assessment 02/02/2026 02/02/2025, 025 Breast Cancer Screening 11/30/2026 11/30/2024, 11/05 Cholesterol Screening (Lipid Panel) 11/21/2029 11/21/2024, 01/14/2024, 01/14/2024, Additional history exists Colorectal Cancer Screening: Colonoscopy 06/16/2032 06/16/2022, 06/16/2022 Pneumococcal Vaccine: 50+ Years Completed 05/19/2024, 04/08/2011 Depression Screening Completed 11/21/2024, 09/26/20 24 HIB Vaccines Aged Out No longer eligi [...] on patient's age to complete this topic Goals Goal Patient Goal Type Associated Problems Recent Progress Patient-Stated? Author Autogenera praveen Goal Care Plan Autogenerated Problem No LongKiki xiao Linda Procedures Procedure Name Priority Date/Time Associated Diagnosis Comments EGD Routine 02/02/2025 12:53 PM EDT Abdominal bloating Gastroesophageal reflux disease without esophagitis TISSUE EXAM Routine 02/02/2025 12:47 PM EDT Abdominal bloating Gastroesophageal reflux disease without esophagitis CULTURE URINE Routine 01/05/2025 8:01 AM EDT Urinary tract infection, site not specified Dysuria NON-GYNECOLOGIC CYTOLOGY Routine 01/04/2025 12:00 AM EDT Gross hematuria US URINE CULTURE TUBE Routine 12/21/2024 1:29 PM EDT Urinary tract infection, site not specified URINALYSIS WITH REFLEX MICROSCOPIC AND CULTURE Routine 12/21/2024 1:29 PM EDT Urinary tract infection, site not specified CBC WITH AUTO DIFFERENTIAL Routine 12/21/2024 1:29 PM EDT Right upper quadrant abdominal pain Urinary tract infection without hematuria, site unspecified URINALYSIS WITH REFLEX MICROSCOPIC AND CULTURE Routine 12/21/2024 1:29 PM EDT Urinary tract infection, site not specified LIPASE Routine 12/21/2024 1:29 PM EDT Right upper quadrant abdominal pain Urinary tract infection without hematuria, site unspecified CBC AND DIFFERENTIAL Routine 12/21/2024 1:29 PM EDT Right upper quadrant abdominal pain Urinary tract infection without hematuria, site unspecified HEPATIC FUNCTION PANEL Routine 12/21/2024 1:29 PM EDT Right upper quadrant abdominal pain Urinary tract infection without hematuria, site unspecified CT ABDOMEN PELVIS W CONTRAST Routine 12/02/2024 3:45 PM EDT Gastroesophageal reflux disease without esophagitis RLQ abdominal pain Irritable bowel syndrome, unspecified type Gastroparesis EXTERNAL MAMMOGRAM REPORT 11/30/2024 VITAMIN B12 Routine 11/21/2024 2:40 PM EDT [...] LDL Routine 11/21/2024 2:40 PM EDT Hyperlipemia DEPRESSION SCREENING Routine 01/14/2024 COLONOSCOPY Routine 06/16/2022 from Last 3 Months or Most Recently Relevant to Health Maintenance Results * EGD Anesthesia - MAC; SP ENDOSCOPY (02/02/2025 12:53 PM EDT) Anatomical Region Laterality Modality Other 02/02/2025 12:3 4 PM EDT Impressions 02/02/2025 12:53 PM EDT - Mild Schatzki ring. Dilated. - Erythematous mucosa in the stomach. Biopsied. - Mucosal nodule found in the duodenum. Recommendation: - Discharge patient to home. - Resume previous diet. - Continue present medications. - Await pathology results. Narrative 02/02/2025 12:53 PM EDT [facility] GI Patient Name: Whit Riggins Procedure Date: 02/02/2025 12:34 PM Date of : 1955 Age: 69 Gender: Female Note Status: Finalized Attending MD: Courtney Burns DO, [id number] Procedure Date No Time: 02/02/2025 Procedure: Upper GI endoscopy Indications: Dysphagia, Heartburn, Abdominal bloating Providers: Courtney Burns DO Referring MD: Deepali Suárez MD Medicines: Monitored Anesthesia Care Complications: No immediate complications. Estimated blood loss: Minimal. Estimated Blood Loss: Estimated blood loss was minimal. Procedure: Pre-Anesthesia Assessment: - - Prior to the procedure, a History and Physical was performed, and patient medications and allergies were reviewed. The patient is competent. The risks and benefits of the procedure and the sedation options and risks were discussed with the patient. All questions were answered and informed consent was obtained. Patient identification and proposed procedure were verified by the physician, the nurse, the anesthesiologist, the film writer and the copier technician in the pre-procedure area in the endoscopy suite. Mental Status Examination: alert and oriented. Airway Examination: normal oropharyngeal airway and neck mobility. Respiratory Examination: clear to auscultation. CV Examination: normal. Prophylactic Antibiotics: The patient does not require prophylactic antibiotics. Prior Anticoagulants: The patient has taken no anticoagulant or antiplatelet agents. ASA Grade Assessment: II - A patient with mild systemic disease. After reviewing the risks and benefits, the patient was deemed in satisfactory condition to undergo the procedure. The anesthesia plan was to use monitored anesthesia care (MAC). Immediately prior to administration of medications, the patient was re-assessed for adequacy to receive sedatives. The heart rate, respiratory rate, oxygen saturations, blood pressure, adequacy of pulmonary ventilation, and response to care were monitored throughout the procedure. The physical status of the patient was re-assessed after the procedure. After obtaining informed consent, the endoscope was passed under direct vision. Throughout the procedure, the patient's blood pressure, pulse, and oxygen saturations were monitored continuously.The Olympus Gastroscope was introduced through the mouth, and advanced to the third part of duodenum. The upper GI endoscopy was accomplished without difficulty. The patient tolerated the procedure well. Findings: A mild Schatzki ring was found at the gastroesophageal junction. A TTS dilator was passed through the scope. Dilation with a 15-16.5-18 mm balloon dilator was performed to 18 mm. The dilation site was examined following endoscope reinsertion and showed complete resolution of luminal narrowing. Estimated blood loss was minimal. Diffuse moderately erythematous mucosa without bleeding was found in the stomach. Biopsies were taken with a cold forceps for histology. Estimated blood loss was minimal. A single 8 mm mucosal nodule was found in the second portion of the duodenum. The polyp was removed with a cold snare. Resection and retrieval were complete. Estimated blood loss was minimal. Procedure Code(s): --- Professional --- 43160, Esophagogastroduodenoscopy, flexible, transoral; with removal of tumor(s), polyp(s), or other lesion(s) by snare technique 72996, Esophagogastroduodenoscopy, flexible, transoral; with transendoscopic balloon dilation of esophagus (less than 30 mm diameter) 77357, 59, Esophagogastroduodenoscopy, flexible, transoral; with biopsy, single or multiple Diagnosis Code(s): --- Professional --- K22.2, Esophageal obstruction R13.10, Dysphagia, unspecified K31.89, Other diseases of stomach and duodenum R12, Heartburn R14.0, Abdominal distension (gaseous) CPT copyright 2020 [employer]. All rights reserved. The codes documented in this report are preliminary and upon pamphlet distributor review may be revised to meet current compliance requirements. COURTNEY Burns DO 02/02/2025 12:52:53 PM This report has been signed electronically.Courtney Burns DO Number of Addenda: 0 Note Initiated On: 02/02/2025 12:34 PM Scope In: Scope Out: Endoscopy Department at [facility] - [address] [place] [phone] Procedure Note Courtney Burns DO - 02/02/2025 [facility] GI Patient Name: Whit Riggins Procedure Date: 02/02/2025 12:34 PM Date of : 1955 Age: 69 Gender: Female Note Status: Finalized Attending MD: Courtney Burns DO, [id number] Procedure Date No Time: 02/02/2025 Procedure: Upper GI endoscopy Indications: Dysphagia, Heartburn, Abdominal bloating Providers: Courtney Burns DO Referring MD: Deepali Suárez MD Medicines: Monitored Anesthesia Care Complications: No immediate complications. Estimated blood loss: Minimal. Estimated Blood Loss: Estimated blood loss was minimal. Procedure: Pre-Anesthesia Assessment: - - Prior to the procedure, a History and Physicalwas performed, and patient medications and allergieswere reviewed. The patient is competent. The risks and benefits of the procedure and the sedation optionsand risks were discussed with the patient. Allquestions were answered and informed consent was obtained. Patient identification and proposed procedure were verified by the physician, the nurse, the anesthesiologist, the film writer and thetechnician in the pre-procedure area in the endoscopy suite. Mental Status Examination: alert and oriented.Airway Examination: normal oropharyngeal airway and neck mobility. Respiratory Examination: clear to auscultation. CV Examination: normal. Prophylactic Antibiotics: The patient does not requireprophylactic antibiotics. Prior Anticoagulants: The patient has taken no anticoagulant or antiplatelet agents. ASA Grade Assessment: II - A patient with mild systemic disease. After reviewing the risks and benefits,the patient was deemed in satisfactory condition to undergo the procedure. The anesthesia plan was touse monitored anesthesia care (MAC). Immediately priorto administration of medications, the patient was re-assessed for adequacy to receive sedatives. The heart rate, respiratory rate, oxygen saturations, blood pressure, adequacy of pulmonary ventilation,and response to care were monitored throughout the procedure. The physical status of the patient was re-assessed after the procedure. After obtaining informed consent, the endoscope was passed under direct vision. Throughout theprocedure, the patient's blood pressure, pulse, and oxygen saturations were monitored continuously.The Olympus Gastroscope was introduced through the mouth, and advanced to the third part of duodenum. The upperGI endoscopy was accomplished without difficulty. The patient tolerated the procedure well. Findings: A mild Schatzki ring was found at thegastroesophageal junction. A TTS dilator was passed through thescope. Dilation with a 15-16.5-18 mm balloon dilator was performed to 18 mm. The dilation site was examined following endoscope reinsertion and showed complete resolution of luminal narrowing. Estimated bloodloss was minimal. Diffuse moderately erythematous mucosa without bleeding was found in the stomach. Biopsies weretaken with a cold forceps for histology. Estimated blood loss was minimal. A single 8 mm mucosal nodule was found in thesecond portion of the duodenum. The polyp was removed witha cold snare. Resection and retrieval were complete. Estimated blood loss was minimal. Procedure Code(s): --- Professional --- 70761, Esophagogastroduodenoscopy, flexible, transoral; with removal of tumor(s), polyp(s), or other lesion(s) by snare technique 15255, Esophagogastroduodenoscopy, flexible, transoral; with transendoscopic balloon dilation of esophagus (less than 30 mm diameter) 05091, 59, Esophagogastroduodenoscopy, flexible, transoral; with biopsy, single or multiple Diagnosis Code(s): --- Professional --- K22.2, Esophageal obstruction R13.10, Dysphagia, unspecified K31.89, Other diseases of stomach and duodenum R12, Heartburn R14.0, Abdominal distension (gaseous) CPT copyright 2020 [employer]. All rights reserved. The codes documented in this report are preliminary and upon pamphlet distributor reviewmay be revised to meet current compliance requirements. COURTNEY Burns DO 02/02/2025 12:52:53 PM This report has been signed electronically.Courtney Burns DO Number of Addenda: 0 Note Initiated On: 02/02/2025 12:34 PM Scope In: Scope Out: Endoscopy Department at [facility] - [address] [place] [phone] IMPRESSION: - Mild Schatzki ring. Dilated. - Erythematous mucosa in the stomach. Biopsied. - Mucosal nodule found in the duodenum. Recommendation: - Discharge patient to home. - Resume previous diet. - Continue present medications. - Await pathology results. Courtney Burns DO GI~PROCEDURE ORDERABLES Final Re sult * Tissue exam (02/02/2025 12:47 PM EDT) Final Diagnosis A. Polyp, duodenum, polypectomy: - Small bowel mucosa with focal active active inflammation and occasional intraepithelial eosinophils. (See note.) Note: Multiple additional levels are examined. The etiology of the focal inflammation is not clear. The endoscopic impression of a polyp is noted. Although no polyp is identified in this specimen, if the lesion is submucosal, it may not be well-represented in a mucosal biopsy. Clinical and endoscopic correlation is recommended. B. Stomach, random sites, biopsy: - Gastric antral and oxyntic type mucosa with focal chronic inflammation and changes suggestive of reactive (chemical) gastropathy. - No active gastritis and no intestinal metaplasia identified. - No Helicobacter pylori identified on hematoxylin and eosin stained sections. 02/03/2025 5:35 PM EDT [facility] at 1735 EDT Comment Housing Quality Standard Inspector slide(s) from this case have been presented at Anatomic Pathology Intradepartmental Review Conference on 02/03/25. 02/03/2025 5:35 PM EDT [facility] Gross Description A. Small Intestine, Duodenum, polyp: Labeled polyp duodenum . Received in formalin is a hernandez, 0.3 cm in greatest diameter tissue fragment, which is wrapped in paper and submitted in toto in one cassette, one piece, multiple levels. B. Gastric, Body, random biopsy: Labeled random ga gastric bod . Received in formalin are four soft, hernandez-pink tissue fragments measuring approximately 0.25-0.3 cm in greatest diameter, which are wrapped in paper and submitted in toto in one cassette, four pieces, multiple levels. TS 02/03/2025 5:35 PM EDT [facility] Disclaimer Unless otherwise specified, all tissue is 10% NB formalin fixed and paraffin embedded. 02/03/2025 5:35 PM EDT [facility] Tissue Duodenal structure / Unknown 02/02/2025 12:47 PM EDT 02/02/2025 3:51 PM EDT Tissue specimen (specimen) Gastric corpus structure / Unknown 02/02/2025 12:50 PM EDT 02/02/2025 3:51 PM EDT us Courtney Burns DO LAB PATHOLOGY ORDERABLES Final R esult [facility]) [facility] [address] [place] [address], * (ABNORMAL) Culture urine (01/05/2025 8:01 AM EDT) Culture, Urine 10,000-49,000 CFU/mL Escherichia coli(A) CLEMENTE 01/07/2025 11:54 AM EDT [facility] Comment: This is an edited result. [...] MICROBIOLOGY - GENERAL ORD ERABLES Final Result [facility] [address] [place] [address], [place] [phone] * Non-gynecologic cytology (01/04/2025 12:00 AM EDT) Final Diagnosis A. Urine, Voided, [id number]: Negative for high grade urothelial carcinoma. Results of UroV[employer]ion fluorescence in situ hybridization (FISH) testing: CEP3: Normal CEP7: Normal CEP17: Normal LSI 9p21: Normal Interpretation: Normal profile Controls stained appropriately. Note: The results are intended as a screening device and should be interpreted in association with other clinical and pathological findings. 01/31/2025 4:22 PM EDT [facility] at 1622 EDT Specimen A Adequacy Satisfactory for evaluation 01/31/2025 4:22 PM EDT [facility] Clinical Information Gross hematuria R31.0 Urine Cytology/FISH (now) 01/31/2025 4:22 PM EDT [facility] Gross Description A. Urine, Voided, [id number]: Received one ThinPrep slide for cytology and one ThinPrep slide for UroVysion FISH 01/31/2025 4:22 PM EDT [facility] Disclaimer Unless otherwise specified, all tissue is 10% NB formalin fixed and paraffin embedded. Technical pathology services provided by [facility] at [address], [place] [address] (CLIA #[id number]/Moraima Rosa MD, Front Window Cashier) 01/31/2025 4:22 PM EDT [facility] Urine Urine specimen from urethra / Unknown 01/04/2025 01/12/2025 11:27 AM EDT us Harry NEW LAB CYTOLOGY ORDERABLES Final Result [facility] [address] [place] [address], [place] [phone] * (ABNORMAL) Urinalysis with reflex microscopic and culture (12/21/2024 1:29 PM EDT) Specific [place] Urine 1.022 1.003 - 1.030 LAB URINALYSIS - AUTOMATED METHOD 12/21/2024 2:17 PM EDT [facility] pH, Urine 5.0 5.0 - 8.0 pH LAB URINALYSIS - AUTOMATED METHOD 12/21/2024 2:17 PM [facility] Leukocytes, Urine Negative Negative LAB URINALYSIS - AUTOMATED METHOD 12/21/2024 2:17 PM [facility] Nitrite, Urine Negative Negative LAB URINALYSIS - AUTOMATED METHOD 12/21/2024 [facility] Protein, Urine Negative <=Trace mg/dL LAB URINALYSIS - AUTOMATED METHOD 12/21/2024 2:17 PM [facility] Glucose, Urine Negative Negative mg/dL LAB URINALYSIS - AUTOMATED METHOD 12/21/2024 2:17 PM [facility] Ketones, Urine Trace(A) Negative mg/dL LAB URINALYSIS - AUTOMATED METHOD 12/21/2024 2:17 PM [facility] Urobilinogen, Urine 0.2 0.2 - 1.0 mg/dL LAB URINALYSIS - AUTOMATED METHOD 12/21/2024 2:17 PM [facility] Bilirubin, Urine Negative Negative LAB URINALYSIS - AUTOMATED METHOD 12/21/2024 2:17 PM [facility] Blood, Urine Small(A) Negative LAB URINALYSIS - AUTOMATED METHOD 12/21/2024 2:17 PM [facility] RBC, Urine 13.6(H) 0 - 4 /HPF LAB URINALYSIS - AUTOMATED METHOD 12/21/2024 2:17 PM EDT [facility] WBC, Urine 0.6 0 - 4 /HPF LAB URINALYSIS - AUTOMATED METHOD 12/21/2024 2:17 PM EDT [facility] Squamous Epithelial, Urine 11 0 - 60 /LPF LAB URINALYSIS - AUTOMATED METHOD 12/21/2024 2:17 PM EDT [facility] Bacteria, Urine Negative Negative /HPF LAB URINALYSIS - AUTOMATED METHOD 12/21/2024 2:17 PM EDT [facility] Hyaline Casts, Urine 1.6 0 - 3 /LPF LAB URINALYSIS - AUTOMATED METHOD 12/21/2024 2:17 PM EDT [facility] Urine Urine specimen obtained by clean catch procedure / Unknown Non-blood Collection / Unknown 12/21/2024 1:29 PM EDT 12/21/2024 1:29 PM EDT us Deepali Suárez MD LAB URINE ORDERABLES Final Res ult [facility] [address] [place] [address], [place] [phone] * Us urine culture tube (12/21/2024 1:29 PM EDT) Extra Tube Hold for add-ons. 12/21/2024 3:01 PM EDT [facility] Comment:Auto resulted. Urine Urine specimen obtained by clean catch procedure / Unknown Non-blood Collection / Unknown 12/21/2024 1:29 PM EDT 12/21/2024 1:29 PM EDT us Deepali Suárez MD LAB URINE ORDERABLES Final Res ult [facility] [address] [place] [address], [place] [phone] * (ABNORMAL) CBC auto differential (12/21/2024 1:29 PM EDT) [facility] WBC 6.9 4.8 - 10.8 K/mcL LAB HEMETOLOGY METHOD 12/21/2024 2:12 PM EDT [facility] RBC 4.10 3.80 - 4.80 M/mcL LAB HEMETOLOGY METHOD 12/21/2024 2:12 PM EDT [facility] Hemoglobin 12.4 11.5 - 16.0 g/dL LAB HEMETOLOGY METHOD 12/21/2024 2:12 PM EDT [facility] Hematocrit 38.9 35.0 - 47.0 % LAB HEMETOLOGY METHOD 12/21/2024 2:12 PM [facility] MCV 94.2 79.0 - 98.0 FL LAB HEMETOLOGY METHOD 12/21/2024 2:12 PM EDT [facility] MCH 30.0 27.0 - 32.0 pcg LAB HEMETOLOGY METHOD 12/21/2024 2:12 PM [facility] MCHC 31.9(L) 32.0 - 37.0 g/dL LAB HEMETOLOGY METHOD 12/21/2024 2:12 PM [facility] RDW 13.2 11.0 - 15.0 % LAB HEMETOLOGY METHOD 12/21/2024 2:12 PM EDT [facility] Platelets 278 130 - 400 K/mcL LAB HEMETOLOGY METHOD 12/21/2024 2:12 PM EDT [facility] MPV 9.9 7.0 - 11.0 FL LAB HEMETOLOGY METHOD 12/21/2024 2:12 PM EDT [facility] NRBC 0.0 <1.0 % LAB HEMETOLOGY METHOD 12/21/2024 2:12 PM EDT [facility] NRBC Absolute 0.00 <0.10 K/mcL LAB HEMETOLOGY METHOD 12/21/2024 2:12 PM [facility] Neutrophils Relative 68.9 % LAB HEMETOLOGY METHOD 12/21/2024 2:12 PM [facility] Lymphocytes Relative 20.1 % LAB HEMETOLOGY METHOD 12/21/2024 2:12 PM [facility] Monocytes Relative 8.6 % LAB HEMETOLOGY METHOD 12/21/2024 2:12 PM [facility] Eosinophils Relative 1.5 % LAB HEMETOLOGY METHOD 12/21/2024 2:12 PM [facility] Basophils Relative 0.6 % LAB HEMETOLOGY METHOD 12/21/2024 2:12 PM [facility] Immature Granulocytes Relative 0.3 % LAB HEMETOLOGY METHOD 12/21/2024 2:12 PM [facility] Neutrophils Absolute 4.72 1.50 - 7.00 K/mcL LAB HEMETOLOGY METHOD 12/21/2024 2:12 PM [facility] Lymphocytes Absolute 1.38 1.00 - 5.00 K/mcL LAB HEMETOLOGY METHOD 12/21/2024 2:12 PM [facility] Monocytes Absolute 0.59 0.20 - 1.00 K/mcL LAB HEMETOLOGY METHOD 12/21/2024 2:12 PM [facility] Eosinophils Absolute 0.10 0.00 - 0.50 K/mcL LAB HEMETOLOGY METHOD 12/21/2024 2:12 PM [facility] Basophils Absolute 0.04 0.00 - 0.20 K/mcL LAB HEMETOLOGY METHOD 12/21/2024 2:12 PM [facility] Immature Granulocytes Absolute 0.02 0.00 - 0.03 K/mcL LAB HEMETOLOGY METHOD 12/21/2024 2:12 PM EDT [facility] Blood Venous blood specimen / Unknown Venipuncture / Unknown 12/21/2024 1:29 PM EDT 12/21/2024 1:29 PM EDT Deepali Suárez MD LAB BLOOD ORDERABLES Final Res ult [facility] [address] [place] [address], [place] [phone] * Lipase (12/21/2024 1:29 PM EDT) Pathologist [facility] Lipase 36 13 - 75 unit/L LAB CHEMISTRY METHOD 12/21/2024 6:22 PM EDT [facility] Blood Venous blood specimen / Unknown Venipuncture / Unknown 12/21/2024 1:29 PM EDT 12/21/2024 1:29 PM EDT us Deepali Suárez MD LAB BLOOD ORDERABLES Final Res ult Performing Organization Address City/[facility]/ZIP Co de Phone Number [facility] [address] [place] [address], [place] [phone] * Hepatic function panel (12/21/2024 1:29 PM EDT) Total Protein 7.0 6.0 - 8.0 g/dL LAB CHEMISTRY METHOD 12/21/2024 6:22 PM EDT [facility] Albumin 3.8 3.2 - 5.0 g/dL LAB CHEMISTRY METHOD 12/21/2024 6:22 PM EDT [facility] Total Bilirubin 0.6 0.0 - 1.4 mg/dL LAB CHEMISTRY METHOD 12/21/2024 6:22 PM EDT [facility] Bilirubin, Direct 0.1 0.0 - 0.3 mg/dL LAB CHEMISTRY METHOD 12/21/2024 6:22 PM EDT [facility] Bilirubin, Indirect 0.5 0.0 - 1.1 mg/dL LAB CHEMISTRY METHOD 12/21/2024 6:22 PM EDT [facility] ALT (SGPT) 24 10 - 60 unit/L LAB CHEMISTRY METHOD 12/21/2024 6:22 PM EDT [facility] AST (SGOT) 24 10 - 42 unit/L LAB CHEMISTRY METHOD 12/21/2024 6:22 PM EDT [facility] Alkaline Phosphatase 97 42 - 121 unit/L LAB CHEMISTRY METHOD 12/21/2024 6:22 PM EDT [facility] Blood Venous blood specimen / Unknown Venipuncture / Unknown 12/21/2024 1:29 PM EDT 12/21/2024 1:29 PM EDT us Deepali Suárez MD LAB BLOOD ORDERABLES Final Res ult [facility] [address] [place] [address], [place] [phone] * CT Abdomen Pelvis w Contrast (12/02/2024 3:45 PM EDT) Anatomical Region Laterality Modality Body Computed Tomogra phy 12/02/2024 5:36 PM EDT Impressions 12/02/2024 5:[address] CORRELATE FOR RIGHT LOWER QUADRANT PAIN. -------- FINAL REPORT -------- Dictated By: Nancie Cabrales Dictated Date: 12/02/2024 17:36 ET Assigned Physician: Nancie Cabrales Reviewed and Electronically Signed By: Nancie Cabrales Signed Date: 12/02/2024 17:39 ET Workstation ID: [id number] Transcribed By: Self Edit Transcribed Date: 12/02/2024 17:36 ET Narrative 12/02/2024 5:39 PM EDT PROCEDURE: CT ABDOMEN/PELVIS WITH CONTRAST INDICATION: Right lower quadrant abdomen pain, history of abdominal hernia TECHNIQUE: CT of the abdomen and pelvis following the intravenous administration of 90cc Isovue 370. Multiplanar reformats. The examination was performed utilizing dose reduction techniques. Total DLP 546 COMPARISON: No priors available. FINDINGS: LOWER THORAX: Lung bases are clear. Mild bronchiectasis. Hiatal hernia. HEPATOBILIARY: No focal liver lesions. No cholelithiasis or biliary duct dilatation. SPLEEN: No focal lesion. PANCREAS: No focal mass or ductal dilatation. ADRENALS: No nodules. KIDNEYS/URETERS: No hydronephrosis, stones, or solid mass. PELVIC ORGANS/BLADDER: Hysterectomy. PERITONEUM / RETROPERITONEUM: No ascites or free air. No retroperitoneal lymphadenopathy. VESSELS: Scattered atherosclerotic calcifications throughout the aorta and its major branches. No aneurysm. GI TRACT: No bowel distention or wall thickening. Appendectomy. BONES AND SOFT TISSUES: Scattered degenerative changes seen throughout the bones. Soft tissues are unremarkable. Procedure Note Nancie Cabrales MD - 12/02/2024 PROCEDURE: CT ABDOMEN/PELVIS WITH CONTRAST INDICATION: Right lower quadrant abdomen pain, history of abdominal hernia TECHNIQUE: CT of the abdomen and pelvis following the intravenousadministration of 90cc Isovue 370. Multiplanar reformats. The examinationwas performed utilizing dose reduction techniques. Total DLP 546 COMPARISON: No priors available. FINDINGS: LOWER THORAX: Lung bases are clear. Mild bronchiectasis. Hiatalhernia. HEPATOBILIARY: No focal liver lesions. No cholelithiasis or biliary ductdilatation. SPLEEN: No focal lesion. PANCREAS: No focal mass or ductal dilatation. ADRENALS: No nodules. KIDNEYS/URETERS: No hydronephrosis, stones, or solid mass. PELVIC ORGANS/BLADDER: Hysterectomy. PERITONEUM / RETROPERITONEUM: No ascites or free air. No retroperitoneallymphadenopathy. VESSELS: Scattered atherosclerotic calcifications throughout the aorta andits major branches. No aneurysm. GI TRACT: No bowel distention or wall thickening. Appendectomy. BONES AND SOFT TISSUES: Scattered degenerative changes seen throughout thebones. Soft tissues are unremarkable. IMPRESSION: NO CT CORRELATE FOR RIGHT LOWER QUADRANT PAIN. -------- FINAL REPORT -------- Dictated By: Nancie Cabrales Dictated Date: 12/02/2024 17:36 ET Assigned Physician: Nancie Cabrales Reviewed and Electronically Signed By: Nancie Cabrales Signed Date: 12/02/2024 17:39 ET Workstation ID: [id number] Transcribed By: Self Edit Transcribed Date: 12/02/2024 17:36 ET us [place] NEW IMG CT PROCEDURES Final Resul t * External Mammogram Report (11/30/2024) Anatomical Region Laterality Modality Mammography Provider [facility] BI PROCEDURES Final Result * (ABNORMAL) Lipid panel with reflex to direct LDL (11/21/2024 2:40 PM EDT) Cholesterol 264(H) 0 - 200 mg/dL LAB CHEMISTRY METHOD 11/21/2024 6:44 PM EDT [facility] Triglycerides 198(H) 0 - 150 mg/dL LAB CHEMISTRY METHOD 11/21/2024 6:44 PM EDT [facility] HDL 73 >=40 mg/dL LAB CHEMISTRY METHOD 11/21/2024 6:44 PM EDT [facility] LDL Calculated 151(H) 0 - 100 mg/dL LAB CHEMISTRY METHOD 11/21/2024 6:44 PM EDT [facility] VLDL Cholesterol Grant 39.6 mg/dL LAB CHEMISTRY METHOD 11/21/2024 6:44 PM EDT [facility] Non HDL Chol. (LDL+VLDL) 191(H) <145 mg/dL LAB CHEMISTRY METHOD 11/21/2024 6:44 PM EDT [facility] Chol/HDL Ratio 3.6 0.0 - 4.4 LAB CHEMISTRY METHOD 11/21/2024 6:44 PM EDT [facility] Blood Venous blood specimen / Unknown Venipuncture / Unknown 11/21/2024 2:40 PM EDT 11/21/2024 2:40 PM EDT Tanmay Kay MD LAB BLOOD ORDERABLES Final Resu lt [facility] [address] [place] [address], [place] [phone] * (ABNORMAL) Vitamin D 25 hydroxy (11/21/2024 2:40 PM EDT) [facility] Vit D, 25-Hydroxy 20.0(L) 30.0 - 80.0 ng/mL LAB CHEMISTRY METHOD 11/21/2024 6:59 PM EDT [facility] Blood Venous blood specimen / Unknown Venipuncture / Unknown 11/21/2024 2:40 PM EDT 11/21/2024 2:40 PM EDT Deepali Suárez MD LAB BLOOD ORDERABLES Final Res ult Performing Organization Address [facility]/ZIP Co de Phone Number [facility] [address] [place] [address], [place] [phone] * Vitamin B12 (11/21/2024 2:40 PM EDT) [facility] Vitamin B-12 319 250 - 900 pcg/mL LAB CHEMISTRY METHOD 11/21/2024 6:44 PM EDT [facility] Blood Venous blood specimen / Unknown Venipuncture / Unknown 11/21/2024 2:40 PM EDT 11/21/2024 2:40 PM EDT us Deepali Suárez MD LAB BLOOD ORDERABLES Final Res ult [facility] [address] [place] [address], [place] [phone] * Basic metabolic panel (11/21/2024 2:40 PM EDT) [facility] Sodium 141 133 - 145 mmol/L LAB CHEMISTRY METHOD 11/21/2024 6:21 PM EDT [facility] Potassium 3.8 3.5 - 5.5 mmol/L LAB CHEMISTRY METHOD 11/21/2024 6:21 PM EDT [facility] Chloride 104 96 - 110 mmol/L LAB CHEMISTRY METHOD 11/21/2024 6:21 PM [facility] CO2 32 21 - 32 mmol/L LAB CHEMISTRY METHOD 11/21/2024 6:21 PM [facility] Anion Gap 5 3 - 11 LAB CHEMISTRY METHOD 11/21/2024 6:21 PM [facility] Glucose 75 70 - 100 mg/dL LAB CHEMISTRY METHOD 11/21/2024 6:21 PM [facility] BUN 21 5 - 25 mg/dL LAB CHEMISTRY METHOD 11/21/2024 6:21 PM [facility] Creatinine 0.78 0.50 - 1.10 mg/dL LAB CHEMISTRY METHOD 11/21/2024 6:21 PM [facility] eGFR 82 >=60 mL/min/1. 73m2 LAB CHEMISTRY METHOD 11/21/2024 6:21 PM [facility] Comment:Calculation based on the Chronic Kidney Disease Epidemiology Collaboration (CKD-EPI) equation refit without adjustment for race. BUN/Creatinine Ratio 26.9 LAB CHEMISTRY METHOD 11/21/2024 6:21 PM [facility] Calcium 8.9 8.5 - 10.5 mg/dL LAB CHEMISTRY METHOD 11/21/2024 6:21 PM [facility] Blood Venous blood specimen / Unknown Venipuncture / Unknown 11/21/2024 2:40 PM EDT 11/21/2024 2:40 PM EDT us Deepali Suárez MD LAB BLOOD ORDERABLES Final Res ult [facility] [address] [place] [address], [place] [phone] * Depression Screening (01/14/2024) [facility] Depression Screening abstracted us Historical Provider HEALTH MAINTENANCE Final Result * Colonoscopy (06/16/2022) Colonoscopy no interpretation , abstracted Anatomical Region Laterality Modality Other Historical Provider HEALTH MAINTENANCE Final Result from Last 3 Months or Most Recently Relevant to Health Maintenance Additional Health Concerns Active Problems Noted Date Diagnosed Date Autogenerated Problem 01/16/2025 Insurance [facility] MEDIC[facility] Member Subscriber Plan / Payer (Ef fective 2020-Present) Name:Whit Perez Relation to Subscriber:Self Name:KaleMarcelina, Norma Payer ID:[id number] Group ID:[id number] Type:Not on file Address: [place] [address] [address] [place] [address] Care Teams Strategic Planning Consultant Relationship Specialty Start Date End Date Deepali Suárez MD [address] [facility] [address] [place] [address] PCP - General Internal Medicine 02/18/24
--- OUTSIDE RECORDS SUMMARY | 2025-02-21 15:56 | XMS_ITS | Encounter Summary ---
Author Organization [id number] Address [address] [place] [address] Care Team Providers Care Heater Room Helper Name Role Phone Deepali Suárez MD Primary Care Provider [phone] Encounter Details Date Type Department Care Team Description 10/09/2020 Telephone Pulmonology - [place] [address] [facility] [address] [place] [address] Deepali Suárez MD [address] [place] [address] Social History Tobacco Use Types Packs/Day Years [...] on filedocumented in this encounter Care Teams Heater Room Helper Relationship Specialty Start Date End Date Deepali Suárez MD PCP - General Internal Medicine 01/28/19 documented as of this encounter
--- OUTSIDE RECORDS SUMMARY | 2025-02-21 15:56 | XMS_ITS | Encounter Summary ---
Author Organization [facility] Address [address] [place] [address] Care Team Providers Care Dollyman Name Role Phone Deepali Suárez MD Primary Care Provider [phone] Encounter Details Date Type Department Care Team Description 08/14/2023 Release of Information Medical Records [address] [place] [id number] Abstract, Provider Social History Tobacco Use Types Packs/Day Years [...] on filedocumented in this encounter Care Teams Dollyman Relationship Specialty Start Date End Date Deepali Suárez MD PCP - General Internal Medicine 01/28/19 documented as of this encounter
--- OUTSIDE RECORDS SUMMARY | 2025-02-21 15:56 | XMS_ITS | Clinical Summary ---
Author Organization [facility] Address [address] [place] [address] Care Team Providers Care Orthopedic Nurse Practitioner Name Role Phone Deepali Suárez MD Primary Care Provider Allergies Active Allergy Reactions Severity Noted Date Comments Morphine Dizzy 11/16/2008 Penicillins Hives/Urticaria 07/22/2017 Sulfa Drugs Hives/Urticaria 07/22/2017 Tape 10/30/2017 Medications Medication Sig Dispensed Refills Start Date End Date Status famotidine (PEPCID) 40 MG tablet Take 1 tablet by mouth 2 times daily. 60 tablet 3 11/07/2020 Active Cholecalciferol (Vitamin D) 50 MCG (1999 UT) Tab Take 1 tablet by mouth daily. 90 tablet 3 11/14/2020 Active B Complex Vitamins (Vitamin B Complex) Tab TOME KRISHNA TABLETA DOS VECES AL JULISSA 180 tablet 3 05/16/2021 Active docusate sodium (COLACE) 100 MG capsule TOME KRISHNA CAPSULA DOS VECES AL JULISSA 60 Capsule 5 02/06/2022 Active hyoscyamine (ANASPAZ,LEVSIN) 0.125 MG tablet Take 1 Tablet by mouth 4 times daily as needed for Cramping for up to 90 days. 360 Tablet 1 04/22/2022 Active raloxifene (EVISTA) 60 MG tablet Take 1 Tablet by mouth. 0 04/28/2022 Active NAPROXEN OR Take 500 mg by mouth. 0 03/28/2022 Active ketorolac (ACULAR) 0.5 % ophthalmic solution apply 1 Drop to the eye. 0 04/28/2022 Active gabapentin (NEURONTIN) 300 MG capsule Take 1 Capsule by mouth. 0 04/28/2022 Active Ocular Implant (Ocular [place]) Implant apply 1 Drop to the eye. 0 04/28/2022 Active Coenzyme Q10 200 MG Cap 0 Refills, Maintenance, 04/28/22 16:00:00 EST, Partial fill upon patient request if the prescription is for a schedule II opioid drug. 0 04/28/2022 Active Probiotic, Lactobacillus, Cap Take 1 Capsule by mouth daily. 30 Capsule 3 09/22/2022 Active lactulose (CHRONULAC) 10 GM/15ML solution Take 30 mL by mouth 2 times daily for 30 days. 473 mL 3 03/26/2023 Active Incontinence Supply Disposable (Disposable Liners) Misc 1 Each by Does not apply route 3 times daily. 100 Each 11 04/17/2023 Active Omeprazole 20 MG Tablet Delayed Release Dispersible Take 20 mg by mouth. 0 04/28/2022 Active Meclizine HCl 25 MG Tab Take 1 Tablet by mouth 2 times daily as needed for Other. 40 Tablet 0 05/13/2023 Active Nutritional Supplements (Boost) Liquid Take 1 Each by mouth daily. 2000 mL 11 09/03/2023 Active omeprazole (PRILOSEC) 20 MG capsuleIndications :Gastroesophageal reflux disease, unspecified whether esophagitis present Take 1 Capsule by mouth 2 times daily (before meals). 60 Capsule 3 09/15/2023 Active Hydrocort-Pramoxin e, Perianal, 2.5-1 % Cream Apply 1 Inch topically 2 times daily. 34 g 3 09/15/2023 Active Hydrocortisone 2 % Cream Apply 1 Inch topically 2 times daily. 34 g 0 09/15/2023 Active Colestipol HCl 1 g TabIndications:Umb ilical hernia without obstruction and without gangrene,Abdominal bloating,Change in consistency of stool TOME KRISHNA TABLETA TODOS LOS CORMIER 90 Tablet 3 09/16/2023 Active Fluticasone-Salmet sabrina 250-50 MCG/ACT AEROSOL POWDER,BREATH ACTIVATEDIndicatio ns:Mild persistent asthma without complication TOME KRISHNA INHALACION POR VIA ORAL DOS VECES AL JULISSA 180 Each 1 09/16/2023 Active ondansetron (ZOFRAN) 4 MG tablet Take 1 Tablet by mouth every 8 hours as needed for Nausea. 30 Tablet 1 12/16/2023 Active hyoscyamine (Levsin) 0.125 MG tablet Take 1 Tablet by mouth every 4 hours as needed for Cramping for up to 180 days. 120 Tablet 5 12/16/2023 Active Simethicone (GAS RELIEF) 125 MG Cap Take 1 Capsule by mouth 4 times daily as needed (gas) for up to 180 days. 120 Capsule 3 12/16/2023 Active ALBUTEROL SULFATE 108 (90 Base) MCG/ACT Aero SolnIndications:Mi ld persistent asthma without complication,PND (post-nasal drip) Inhale 2 Puffs into the lungs every 4 hours as needed for Cough, Wheezing or Shortness of Breath. 25.5 g 1 12/17/2023 Active fluticasone 50 MCG/ACT nasal sprayIndications:P ND (post-nasal drip) 2 Sprays by Nasal route daily. 48 mL 3 12/17/2023 Active loratadine (CLARITIN) 10 MG tabletIndications: Mild persistent asthma without complication,PND (post-nasal drip) Take 1 Tablet by mouth daily. 90 Tablet 3 12/17/2023 Active pravastatin (PRAVACHOL) 40 MG tablet Take 1 Tablet by mouth at bedtime. 90 Tablet 3 01/14/2024 Active montelukast (SINGULAIR) 10 MG tabletIndications: Mild persistent asthma without complication,PND (post-nasal drip),Seasonal allergies Take 1 Tablet by mouth at bedtime for 360 days. 90 Tablet 3 01/14/2024 Active Hydrocortisone, Perianal, 2.5 % Cream PLACE 1 INCH RECTALLY 2 TIMES DAILY. 30 g 3 02/11/2024 Active Active Problems Problem Noted Date Low left ventricular ejection fraction 0 01/15/2024 Chronic right shoulder pain 03/17/2023 Bloating 09/22/2022 History of sarcoidosis 11/13/2019 Overview: Hist pulmonary sarcoid Obstructive sleep apnea mild AL 9 09/06 Overview: [facility] Home Sleep Apnea Test: Date [...] polysomnogram. - 2019 home study with AL . 05/2020 Home Sleep Study did not reveal sleep apnea or nocturnal hypoxia. AL . 05/2021 Home Sleep Study did not reveal sleep apnea or nocturnal hypoxia. Dysphagia 12/29/2017 Thyroid nodule 11/30/2017 Cholelithiasis 10/30/2017 Gastroparesis 10/30/2017 Carpal tunnel syndrome 09/06/2017 COPD (chronic obstructive pulmonary dise ase) 09/06/2017 Vitamin D deficiency 09/06/2017 Osteopenia 09/06/2017 Irritable bowel syndrome 09/06/2017 Glaucoma 09/06/2017 DDD (degenerative disc disease), lumbar 09/06/2017 Asthma 07/22/2017 Fibromyalgia 07/22/2017 Generalized OA 07/22/2017 Anxiety and depression 07/22/2017 Vitiligo 07/22/2017 Gastroesophageal reflux disease 07/23/19 18 Varicose vein of leg 07/22/2017 Hiatal hernia 07/22/2017 Allergic rhinitis 02/10/2017 Cervical radiculopathy 07/16/2016 Lactase deficiency 01/22/2015 Scoliosis 12/08/2012 Migraine headache 05/25/2012 Internal hemorrhoids 12/03/2011 Hyperlipidemia Resolved Problems Problem Noted Date Resolved Date Disc degeneration, lumbar 08/04/20162017 Immunizations Name Administration Dates Next Due COVID-19 (Moderna) PT Reported 04/28/2021,2020,07/12/2020 Influenza Vaccine-preservati ve Free-quadrivalent 4 Years 03/24/2023,03/18/2018 Influenza vaccine high dose age 65 and over 01/18,04/01/2021 Pneumoccoccal(Adult) Polysaccharide PPSV23 04/08 TD (STATE SUPPLIED FOR ADULTS AND CHILDREN) 04/2001 Tdap 04/30/2012 Family History Medical History Relation Name Comments CA Breast Aunt 1 mat CA Breast Aunt 2 pat Cancer of the Lung Father Other Mother pacemaker Relation Name Status Comments [...] file Not on file Not on file Last Filed Vital Signs Vital Sign Reading Time Taken Comments Blood Pressure 94/70 01/14/2024 1:07 PM EDT Pulse 73 01/14/2024 1:07 PM EDT Temperature 36.6 C (97.9 F) 01/14/2024 1:07 PM EDT Respiratory Rate 14 12/17/2023 10:12 AM EDT Oxygen Saturation 96% 01/14/2024 1:07 PM EDT Inhaled Oxygen Concentration - - Weight 62.1 kg (137 lb) 01/14/2024 1:07 PM EDT Height 162.6 cm (5' 4 ) 01/14/2024 1:07 PM EDT Body Mass Index 23.52 01/14/2024 1:07 PM EDT Plan of Treatment Health Maintenance Due Date Last Done Comments HEPATITIS C SCREENING 1973 SHINGLES VACCINE (1 of 2) 2005 PNEUMOCOCCAL VACCINE (2 - PCV) 2020 04/08/2011 BONE DENSITY SCREENING 10/02/2021 10/03/2019 DTAP/TDAP/TD (2 - Td or Tdap) 04/30/2022 04/30/2012, 04/20/2001 MAMMOGRAM 11/05/2024 11/06/2023, 09/18, 04/01/2018, Additional history exists Covid-19 Vaccine ( - 2022-2 4 season) 2024 04/28/2021, 08/09/2020, 07/12/2020 INFLUENZA (#1) 2024 03/24/2023, 01/18, 04/01/2021, Additional history exists DEPRESSION SCREEN 01/13/2025 01/14/2024, , 10/10/2021, Additional history exists CHOLESTEROL SCREENING 01/13/2029 01/14/2024 , 05/13/2023, 03/06/2023, Additional history exists COLON CANCER SCREENING 06/16/2032 , 09/04/2010 (External Completion) Care Teams Orthopedic Nurse Practitioner Relationship Specialty Start Date End Date Deepali Suárez MD PCP - General Internal Medicine 01/28/19
--- OUTSIDE RECORDS SUMMARY | 2025-02-21 15:56 | XMS_ITS | Encounter Summary ---
Author Organization [facility] Address [address] [place] [address] Care Team Providers Care French Binding Folder Name Role Phone Deepali Suárez MD Primary Care Provider [phone] Reason for Visit * Reason Comments E-prescribe Rx Request Encounter Details Date Type Department Care Team Description 12/14/2023 Refill Gastroenterology [facility] [address] [facility] [address] [place] [address] Angeles Walters DScPAS E-prescribe Rx Request Social [...] encounter Miscellaneous Notes * Telephone Encounter - Libra Amador M.A. - 12/14/2023 10:24 AM EDT Dejah: 09/15/2023 Nov: 01/21/2024 documented in this encounter Plan of Treatment Not on file documented as of this encounter Visit Diagnoses Not on filedocumented in this encounter Care Teams French Binding Folder Relationship Specialty Start Date End Date Deepali Suárez MD PCP - General Internal Medicine 01/28/19 documented as of this encounter
--- OUTSIDE RECORDS SUMMARY | 2025-02-21 15:56 | XMS_ITS | Encounter Summary ---
Author Organization [employer] [facility] Address [address] [place] [address] Care Team Providers Care Clinical Care Manager Name Role Phone Deepali Suárez MD Primary Care Provider [phone] Reason for Visit * Reason Comments E-prescribe Rx Request Encounter Details Date Type Department Care Team Description 12/05/2021 Refill Internal Medicine - [address], [address] [place] [address] Deepali Suárez MD [address] [place] [phone] E-prescribe Rx Request Social History Tobacco Use [...] encounter Miscellaneous Notes * Telephone Encounter - Mary Gonzalez - 12/06/2021 10:00 AM EDT No visits with results within 1 Month(s) from this visit. Latest known visit with results is: Orders Only on 08/13/2021 Component Date Value ??? GLUCOSE, URINE (UA) 08/13/2021 NEGATIVE ??? BILIRUBIN URINE 08/13/2021 NEGATIVE ??? KETONE, URINE 08/13/2021 TRACE (A) ??? SPECIFIC GRAVITY, URINE 08/13/2021 1.026 ??? BLOOD, URINE 08/13/2021 SMALL (A) ??? PH, URINE 08/13/2021 5.0 ??? PROTEIN, URINE 08/13/2021 NEGATIVE ??? UROBILINOGEN, URINE 08/13/2021 0.2 ??? NITRITE,URINE 08/13/2021 NEGATIVE ??? LEUKOCYTE ESTERASE, URINE 08/13/2021 MODERATE (A) ??? CRYSTALS, URINE 08/13/2021 LT CALCIUM OXALATE ??? MUCIN, URINE 08/13/2021 TRACE ??? RBC-Urine 08/13/2021 4 ??? EPITH CELLS, URINE 08/13/2021 30 ??? BACTERIA, URINE 08/13/2021 NEGATIVE ??? HYALINE CAST, URINE 08/13/2021 2 ??? LIPASE 08/13/2021 143 ??? Cholesterol 08/13/2021 190 ??? TRIGLYCERIDES 08/13/2021 132 ??? HDL CHOLESTEROL 08/13/2021 61 ??? LDL CALCULATED 08/13/2021 103 (A) ??? TC-HDLC RATIO 08/13/2021 3.1 ??? TSH CASCADE 08/13/2021 2.82 ??? WHITE BLOOD COUNT 08/13/2021 5.7 ??? RED BLOOD COUNT 08/13/2021 4.2 ??? Hemoglobin 08/13/2021 12.6 ??? Hematocrit 08/13/2021 40.5 ??? MEAN CORPUSCULAR VOLUME 08/13/2021 95.5 ??? MEAN CORPUSCULAR HEMOGLO* 08/13/2021 29.7 ??? MEAN CORPUSCULAR HGB CONC 08/13/2021 31.1 (A) ??? RED CELL DISTRIBUTION WI* 08/13/2021 13.3 ??? PLT COUNT 08/13/2021 266 ??? MEAN PLATELET VOLUME 08/13/2021 10.1 ??? NRBC % AUTO 08/13/2021 0.0 ??? NEUTROPHILS % 08/13/2021 56.0 ??? LYMPH % 08/13/2021 31.4 ??? MONO % 08/13/2021 9.0 ??? EOS % 08/13/2021 2.7 ??? BASO % 08/13/2021 0.7 ??? IMMATURE GRANULOCYTES % 08/13/2021 0.2 ??? NRBC # AUTO 08/13/2021 0.00 ??? NEUT # 08/13/2021 3.17 ??? LYMPH # 08/13/2021 1.78 ??? MONO # 08/13/2021 0.51 ??? EOS # 08/13/2021 0.15 ??? BASO # 08/13/2021 0.04 ??? IMMATURE GRANULOCYTES # 08/13/2021 0.01 ??? GLUCOSE 08/13/2021 77 ??? Blood Urea Nitrogen 08/13/2021 18 ??? CREAT 08/13/2021 0.74 GLOMERULAR FILTRATION RA* 08/13/2021 > 60 ??? NA 08/13/2021 143 ??? K 08/13/2021 4.2 ??? CL 08/13/2021 107 ??? CARBON DIOXIDE (CO2) 08/13/2021 30 ??? ANION GAP 08/13/2021 6 ??? CALCIUM 08/13/2021 9.8 ??? TOTAL PROTEIN (TP) 08/13/2021 7.1 ??? Albumin 08/13/2021 3.9 ??? BILIRUBIN TOTAL 08/13/2021 0.7 ??? SGOT 08/13/2021 21 ??? SGPT 08/13/2021 33 ??? ALK PHOS 08/13/2021 89 * Telephone Encounter - Sahra Alejandro - 12/06/2021 8:56 AM EDT JOSH 10/10/21 NOV 02/19/22 documented in this encounter Plan of Treatment Not on file documented as of this encounter Visit Diagnoses Not on filedocumented in this encounter Care Teams Clinical Care Manager Relationship Specialty Start Date End Date Deepali Suárez MD PCP - General Internal Medicine 01/28/19 documented as of this encounter
--- OUTSIDE RECORDS SUMMARY | 2025-02-21 15:56 | XMS_ITS | Encounter Summary ---
Author Organization [facility] Address [address] [place] [address] Care Team Providers Care Presales Consultant Name Role Phone Deepali Suárez MD Primary Care Provider [phone] Encounter Details Date Type Department Care Team Description 05/18/2023 SCAN Medical Records [address] [place] [id number] [place] [address] Social History Tobacco Use Types Packs/Day Years [...] on filedocumented in this encounter Care Teams Presales Consultant Relationship Specialty Start Date End Date Deepali Suárez MD PCP - General Internal Medicine 01/28/19 documented as of this encounter
--- OUTSIDE RECORDS SUMMARY | 2025-02-21 15:56 | XMS_ITS | Encounter Summary ---
Author Organization [facility] Address [address] [place] [address] Care Team Providers Care Stained Glass Glazier Helper Name Role Phone Deepali Suárez MD Primary Care Provider [phone] Reason for Visit * Reason Comments E-prescribe Rx Request Encounter Details Date Type Department Care Team Description 11/05/2023 Refill Pulmonology - [place] [address] [facility] [address] [place] [phone] Teri Hawkins, CHARGE MASTER ANALYST [address] [facility] [address] [place] [phone] E-prescribe Rx Request Social History Tobacco Use [...] * Telephone Encounter - Kailey Miller - 11/05/2023 8:24 AM EDT Dejah: 07/02/2023 Nov: 01/06/2024 documented in this encounter Plan of Treatment Not on file documented as of this encounter Visit Diagnoses Diagnosis Mild persistent asthma without complication Unspecified asthma PND (post-nasal drip) Postnasal drip documented in this encounter Care Teams Stained Glass Glazier Helper Relationship Specialty Start Date End Date Deepali Suárez MD PCP - General Internal Medicine 01/28/19 documented as of this encounter
--- OUTSIDE RECORDS SUMMARY | 2025-02-21 15:56 | XMS_ITS | Encounter Summary ---
Author Organization [employer] [facility] Address [address] [place] [address] Care Team Providers Care Boring Mill Operator Name Role Phone Deepali Suárez MD Primary Care Provider [phone] Reason for Visit * Reason Comments E-prescribe Rx Request Encounter Details Date Type Department Care Team Description 08/19/2020 Refill Gastroenterology [address] [place] [address] Angeles Walters DScPAS E-prescribe Rx Request Social [...] Exposure Response Date Recorded In the last month, have you been in contact with someone who was confirmed or suspected to have Coronavirus / COVID-19? No / Unsure 08/08/2020 8:53 AM EDT documented as of this encounter Plan of Treatment Not on file documented as of this encounter Visit Diagnoses Not on filedocumented in this encounter Care Teams Boring Mill Operator Relationship Specialty Start Date End Date Deepali Suárez MD PCP - General Internal Medicine 01/28/19 documented as of this encounter
--- OUTSIDE RECORDS SUMMARY | 2025-02-21 15:56 | XMS_ITS | Encounter Summary ---
Author Organization [facility] Address [address] [place] [address] Care Team Providers Care Inlayer Silver Name Role Phone Deepali Suárez MD Primary Care Provider [phone] Encounter Details Date Type Department Care Team (Late st Contact Info) Description 01/12/2025 Lab Requisition [facility] - Main Lab [address] [facility] [place] [address] Harry Rodriguez, PA [address] [place] [address] Gross hematuria Social History Tobacco Use Types Packs/Day Years [...] for your loved ones. For example, child abuse worker or elderly care for an older adult? [...] 10:30 AM EST Clinical Support Internal Medicine [address] [phone] 03/23/2025 1:15 PM EST Office Visit Internal Medicine [address] [phone] Deepali Suárez MD [address] [place] [phone] 05/22/2025 2:20 PM EST Office Visit Gastroenterology - [address] [facility] [address] [place] [address] Angeles Walters PA [address] [facility] [address] [place] [address] 05/29/2025 2:45 PM EST Office Visit Pulmonology - [place] [address] [facility] [address] [place] [phone] Teri Hawkins NP [address] [place] [address] 08/09/2025 10:00 AM EDT Ancillary Procedure [facility] - [facility] [address] [facility] [address] [place] [phone] 10/13/2025 2:00 PM EDT Office Visit Vascular Surgery - [place] [address] [place] [phone] Fartun Lange PA [address] [place] [address] 12/26/2025 1:00 PM EDT Office Visit Bariatric Surgery - [place] [address] [facility] [address] [place] [phone] Ann Alvarado MD [address] [place] [phone] documented as of this encounter Procedures Procedure Name Priority Date/Time Associated Diagnosis Comments NON-GYNECOLOGIC CYTOLOGY Routine 01/04/2025 12:00 AM EDT Gross hematuria documented in this encounter Results * Non-gynecologic cytology (01/04/2025 12:00 AM EDT) Final Diagnosis A. Urine, Voided, [id number]: Negative for high grade urothelial carcinoma. Results of [employer] fluorescence in situ hybridization (FISH) testing: CEP3: Normal CEP7: Normal CEP17: Normal LSI 9p21: Normal Interpretation: Normal profile Controls stained appropriately. Note: The results are intended as a screening device and should be interpreted in association with other clinical and pathological findings. 01/31/2025 4:22 PM EDT [facility] at 1622 EDT Specimen A Adequacy Satisfactory for evaluation 01/31/2025 4:22 PM EDT [facility] Clinical Information Gross hematuria R31.0 Urine Cytology/FISH (now) 01/31/2025 4:22 PM EDT [facility] Gross Description A. Urine, Voided, [id number]: Received one ThinPrep slide for cytology and one ThinPrep slide for [employer] FISH 01/31/2025 4:22 PM EDT [facility] Disclaimer Unless otherwise specified, all tissue is 10% NB formalin fixed and paraffin embedded. Technical pathology services provided by [facility] at [address] [place] [address] [address] [address] (CLIA #[id number]/Moraima Rosa MD, Boomswing Operator) 01/31/2025 4:22 PM EDT [facility] Urine Urine specimen from urethra / Unknown 01/04/2025 01/12/2025 11:27 AM EDT us Harry NEW LAB CYTOLOGY ORDERABLES Final Result [facility] [address] [place] [address], documented in this encounter Visit Diagnoses Diagnosis Gross hematuria documented in this encounter Additional Health Concerns Assessment Noted Time PHQ-9 Depression Total Score: 0 11/22/19 25 2:06 PM EDT documented as of this encounter Care Teams Inlayer Silver Relationship Specialty Start Date End Date Deepali Suárez MD [address] [phone] PCP - General Internal Medicine 02/18/24 documented as of this encounter
--- OUTSIDE RECORDS SUMMARY | 2025-02-21 15:56 | XMS_ITS | Encounter Summary ---
Author Organization [facility] Address [address] [place] [address] Care Team Providers Care Player Services Representative Name Role Phone Deepali Suárez MD Primary Care Provider [phone] Encounter Details Date Type Department Care Team Description 01/04/2024 Orders Only Gastroenterology - [place] [address] [facility] [address] [place] [phone] Angeles Walters DScPAS Abdominal bloating; Change in consistency of stool; Flatulence, eructation, and gas pain; Epigastric abdominal pain Social History Tobacco Use Types Packs/Day Years Used Date Smoking Tobacco: Never Smokeless Tobacco: Never Alcohol Use Standard Drinks/Week Comments No 0 (1 standard drink = 0.6 oz pur e alcohol) Sex Assigned at Date Recorded Not on file Job Start Date Occupation Industry Not on file Not on file Not on file documented as of this encounter Progress Notes * Marilu Dsouza - 01/04/2024 12:42 PM EDT I will send msg. documented in this encounter Plan of Treatment Not on file documented as of this encounter Procedures Procedure Name Priority Date/Time Associated Diagnosis Comments SONO ABDOMEN COMPLETE Routine 12/31/2023 Abdominal bloating Change in consistency of stool Flatulence, eructation, and gas pain Epigastric abdominal pain documented in this encounter Results * SONO ABDOMEN COMPLETE (12/31/2023) Angeles Walters DScPAS ULTRASOUND documented in this encounter Visit Diagnoses Diagnosis Abdominal bloating Flatulence, eructation, and gas pain Change in consistency of stool Flatulence, eructation, and gas pain Epigastric abdominal pain Abdominal pain, epigastric documented in this encounter Care Teams Player Services Representative Relationship Specialty Start Date End Date Deepali Suárez MD PCP - General Internal Medicine 01/28/19 documented as of this encounter
--- OUTSIDE RECORDS SUMMARY | 2025-02-21 15:56 | XMS_ITS | Encounter Summary ---
Author Organization [employer] Address [address] [place] [address] Care Team Providers Care Trim Carpenter Name Role Phone Deepali Suárez MD Primary Care Provider [phone] Encounter Details Date Type Department Care Team ([facility] st Contact Info) Description 02/04/2025 Results Follow-Up Gastroenterology - [place] [address] [facility] [address] [place] [phone] Estuardo Burns, DO [address] [facility] [address] [place] [address] Social History Tobacco Use Types Packs/Day Years [...] your loved ones. For example, child welfare caseworker or elderly care for an older adult? [...] as of this encounter Progress Notes * Estuardo Burns, DO - 02/04/2025 7:21 AM EDT Please let the patient know that her duodenal polyp was benign and is simply a conglomerate of dilated lymphatic vessels. These are benign and not precancerous. The stomach biopsies showed evidence of active acid reflux inflammation without any precancer cells or infections. My recommendation is eduardo t this continues my recommendation is that she discontinues pantoprazole as it is not working. I would like for her to give a try to esomeprazole 20 mg daily which is a more potent medication. If sheagrees, please propose esomeprazole 20 mg, 60 tablets with 1 refill for me to cosign. She should not be taking pantoprazole any longer. Thank you. documented in this encounter Plan of Treatment Upcoming Encounters Date Type Department Care Team (Late st Contact Info) Description 03/01/2025 10:30 AM EST Clinical Support Internal Medicine - [address] [phone] 03/23/2025 1:15 PM EST Office Visit Internal Medicine - [address] [phone] Deepali Suárez MD [address] [place] [phone] 05/22/2025 2:20 PM EST Office Visit Gastroenterology - [address] [facility] [address] [phone] Angeles Walters PA [address] [address] 05/29/2025 2:45 PM EST Office Visit Pulmonology - [address] [phone] Teri Hawkins NP [address] [place] [phone] 08/09/2025 10:00 AM EDT Ancillary Procedure [facility] - [facility] [address] [facility] Jonathan [address] [place] [address] 10/13/2025 2:00 PM EDT Office Visit Vascular Surgery - [place] [address] [facility] [address] [place] [phone] Fartun Lange PA [address] [place] [phone] 12/26/2025 1:00 PM EDT Office Visit Bariatric Surgery - [place] [address] [facility] [address] [place] [address] Ann Alvarado MD [address] [place] [phone] documented as of this encounter Goals Goal Patient Goal Type Associated Problems Recent Progress Patient-Stated? Author Autogenera praveen Goal Care Plan Autogenerated Problem No Kiki Alves documented as of this encounter Visit Diagnoses Not on filedocumented in this encounter Additional Health Concerns Active Problems Noted Date Diagnosed Date Autogenerated Problem 01/16/2025 Assessment Noted Time PHQ-9 Depression Total Score: 0 11/22/19 25 2:06 PM EDT documented as of this encounter Care Teams Trim Carpenter Relationship Specialty Start Date End Date Deepali Suárez MD 175 [facility] [address] [place] [address] PCP - General Internal Medicine 02/18/24 documented as of this encounter
--- OUTSIDE RECORDS SUMMARY | 2025-02-21 15:57 | XMS_ITS | Encounter Summary ---
Author Organization [facility] Address [address] [place] [address] Care Team Providers Care Senior Portfolio Manager Name Role Phone Deepali Suárez MD Primary Care Provider [phone] Deepali Suárez MD Primary Care Provider [phone] Reason for Visit * Reason Onset Date Comments Provider Call Back 07/06/2018 Encounter Details Date Type Department Care Team Description 07/06/2018 Telephone Adult [address] [address] Leigha Blanton MD Provider Call Back Social History Tobacco Use [...] encounter Miscellaneous Notes * Telephone Encounter - Sharon Magana M.A. - 07/08/2018 2:02 PM EDT CHRISTEN read message below * Telephone Encounter - Gisele Pena - 07/06/2018 11:52 AM EDT Caller requesting call back from provider: Is the caller the patient? YES If caller is not the patient, what is the callers name? N/A Callers relationship to patient? N/A If person calling is not the patient themselves, is there a verbal release in FYI or permanent comments for this person: NO Reason for call back: Patient states the place she is living at is renovated the apartments up to what she needs for her health condition such as the bathroom shower rails, bathroom sink, etc. Patient states the place she lives at will send a form to her pcp however she would like to speak to Leigha Blanton in regards of it. Caller offered to speak with the nurse for assistance: YES Response: Patient offered to speak with nurse for assistance and patient agreed. Message forwarded to nurse. documented in this encounter Plan of Treatment Not on file documented as of this encounter Visit Diagnoses Not on filedocumented in this encounter Care Teams Senior Portfolio Manager Relationship Specialty Start Date End Date Deepali Suárez MD PCP - General Internal Medicine 01/28/19 Deepali Suárez MD PCP - General 10/26/17 01/27/19 documented as of this encounter
--- OUTSIDE RECORDS SUMMARY | 2025-02-21 15:57 | XMS_ITS | Encounter Summary ---
Author Organization [facility] Address [address] [place] [address] Care Team Providers Care Kickboxing Instructor Name Role Phone Deepali Suárez MD Primary Care Provider [phone] Deepali Suárez MD Primary Care Provider [phone] Encounter Details Date Type Department Care Team Description 02/03/2018 Mri Specialist Report Medical Records [address] [place] [id number] Abstract, Provider Social History Tobacco Use Types [...] on filedocumented in this encounter Care Teams Kickboxing Instructor Relationship Specialty Start Date End Date Deepali Suárez MD PCP - General Internal Medicine 01/28/19 Deepali Suárez MD PCP - General 10/26/17 01/27/19 documented as of this encounter
--- OUTSIDE RECORDS SUMMARY | 2025-02-21 15:57 | XMS_ITS | Encounter Summary ---
Author Organization [employer] Address [address] [place] [address] Care Team Providers Care Scale And Skip Car Operator Name Role Phone Deepali Suárez MD Primary Care Provider [phone] Deepali Suárez MD Primary Care Provider [phone] Reason for Visit * Reason Comments E-prescribe Rx Request Encounter Details Date Type Department Care Team Description 06/29/2018 Refill Gastroenterology [address] [place] [address] Angeles Walters DScPAS E-prescribe Rx Request Social [...] on filedocumented in this encounter Care Teams Scale And Skip Car Operator Relationship Specialty Start Date End Date Deepali Suárez MD PCP - General Internal Medicine 01/28/19 Deepali Suárez MD PCP - General 10/26/17 01/27/19 documented as of this encounter
--- OUTSIDE RECORDS SUMMARY | 2025-02-21 15:57 | XMS_ITS | Encounter Summary ---
Author Organization [facility] Address [address] [place] [address] Care Team Providers Care Nurse Reviewer Name Role Phone Deepali Suárez MD Primary Care Provider [phone] Reason for Visit * Reason Comments E-prescribe Rx Request Encounter Details Date Type Department Care Team Description 02/07/2021 Refill Gastroenterology - [place] 175 [facility] [address] [place] [phone] Angeles Walters DScPAS E-prescribe Rx Request Social [...] have Coronavirus / COVID-19? No / Unsure 02/07/2021 1:28 PM EDT documented as of this encounter Miscellaneous Notes * Telephone Encounter - Tonia Ramos M.A. - 02/07/2021 9:10 AM EDT Patient is scheduled for an appt today at 1:40 pm documented in this encounter Plan of Treatment Not on file documented as of this encounter Visit Diagnoses Not on filedocumented in this encounter Care Teams Nurse Reviewer Relationship Specialty Start Date End Date Deepali Suárez MD PCP - General Internal Medicine 01/28/19 documented as of this encounter
--- OUTSIDE RECORDS SUMMARY | 2025-02-21 15:57 | XMS_ITS | Encounter Summary ---
Author Organization [facility] Address [address] [place] [address] Care Team Providers Care Wallpaperer Name Role Phone Deepali Suárez MD Primary Care Provider [phone] Encounter Details Date Type Department Care Team Description 12/11/2020 Conference Organizer Report Medical Records [address] [place] [id number] Abstract, Provider Social History Tobacco Use Types [...] have Coronavirus / COVID-19? No / Unsure 11/23/2020 3:47 PM EDT documented as of this encounter Plan of Treatment Not on file documented as of this encounter Visit Diagnoses Not on filedocumented in this encounter Care Teams Wallpaperer Relationship Specialty Start Date End Date Deepali Suárez MD PCP - General Internal Medicine 01/28/19 documented as of this encounter
--- OUTSIDE RECORDS SUMMARY | 2025-02-21 15:57 | XMS_ITS | Encounter Summary ---
Author Organization [facility] Address [address] [place] [address] Care Team Providers Care Management Trainee Program Stores Name Role Phone Deepali Suárez MD Primary Care Provider [phone] Reason for Visit * Reason Onset Date Comments Faxed Order 06/02/2022 [place] Encounter Details Date Type Department Care Team Description 06/02/2022 Telephone Internal Medicine - [address], [address] [place] [address] Deepali Suárez MD [address] [place] [phone] Faxed Order ( [place]) Social History Tobacco Use Types Packs/Day Years [...] suspected to have Coronavirus/COVID-19? No / Unsure 05/28/2022 1:02 PM EST documented as of this encounter Miscellaneous Notes * Telephone Encounter - Jaguar Mustafa M.A. - 06/04/2022 9:19 AM EST Order received given to PCP * Telephone Encounter - Zaid Alonzo - 06/02/2022 10:37 AM EST Received an order from [employer] Review, sign/date, and return. documented in this encounter Plan of Treatment Not on file documented as of this encounter Visit Diagnoses Not on filedocumented in this encounter Care Teams Management Trainee Program Stores Relationship Specialty Start Date End Date Deepali Suárez MD PCP - General Internal Medicine 01/28/19 documented as of this encounter
--- OUTSIDE RECORDS SUMMARY | 2025-02-21 15:57 | XMS_ITS | Encounter Summary ---
Author Organization [facility] Address [address] [place] [address] Care Team Providers Care Thread Spooler Name Role Phone Deepali Suárez MD Primary Care Provider [phone] Reason for Visit * Reason Comments E-prescribe Rx Request Encounter Details Date Type Department Care Team Description 01/13/2020 Refill Gastroenterology - [address] [place] [address] Angeles Walters DScPAS E-prescribe Rx Request Social [...] or suspected to have Coronavirus / COVID-19? Unable to assess 01/16/2020 9:29 AM EDT documented as of this encounter Plan of Treatment Not on file documented as of this encounter Visit Diagnoses Not on filedocumented in this encounter Care Teams Thread Spooler Relationship Specialty Start Date End Date Deepali Suárez MD PCP - General Internal Medicine 01/28/19 documented as of this encounter
--- OUTSIDE RECORDS SUMMARY | 2025-02-21 15:57 | XMS_ITS | Encounter Summary ---
Author Organization [employer] [facility] Address [address] [place] [address] Care Team Providers Care Brassiere Cup Mold Cutter Name Role Phone Deepali Suárez MD Primary Care Provider [phone] Reason for Visit * Reason Comments E-prescribe Rx Request Encounter Details Date Type Department Care Team Description 01/11/2021 Refill Gastroenterology [address] [place] [address] Angeles Walters DScPAS E-prescribe Rx Request Social [...] have Coronavirus / COVID-19? No / Unsure 12/31/2020 10:29 AM EDT documented as of this encounter Plan of Treatment Not on file documented as of this encounter Visit Diagnoses Not on filedocumented in this encounter Care Teams Brassiere Cup Mold Cutter Relationship Specialty Start Date End Date Deepali Suárez MD PCP - General Internal Medicine 01/28/19 documented as of this encounter
--- OUTSIDE RECORDS SUMMARY | 2025-02-21 15:57 | XMS_ITS | Encounter Summary ---
Author Organization [employer] [facility] Address [address] [place] [address] Care Team Providers Care Video Manager Name Role Phone Deepali Suárez MD Primary Care Provider [phone] Reason for Visit * Reason Onset Date Comments Orders Call 01/04/2020 Encounter Details Date Type Department Care Team Description 01/04/2020 Telephone Pulmonology - [place] 175 [facility] [address] [place] [address] Teri Hawkins APRN 175 [facility] [address] [place] [phone] Orders Call Social History Tobacco Use Types Packs/Day Years [...] have Coronavirus / COVID-19? No / Unsure 12/29/2019 10:56 AM EDT documented as of this encounter Miscellaneous Notes * Telephone Encounter - Jagruti Sorenson - 01/04/2020 3:40 PM EDT Hilario From [employer] is calling stating patient failed initial trial last year for CPAP machine and Medicare will not cover it again unless there is office notes stating the symptoms for ANDIE and also a new sleep study documented in this encounter Plan of Treatment Not on file documented as of this encounter Visit Diagnoses Not on filedocumented in this encounter Care Teams Video Manager Relationship Specialty Start Date End Date Deepali Suárez MD PCP - General Internal Medicine 01/28/19 documented as of this encounter
--- OUTSIDE RECORDS SUMMARY | 2025-02-21 15:57 | XMS_ITS | Encounter Summary ---
Author Organization [facility] Address [address] [place] [address] Care Team Providers Care Surfboard Maker Name Role Phone Deepali Suárez MD Primary Care Provider [phone] Reason for Visit * Reason Onset Date Comments REFERRAL 02/07/2021 Encounter Details Date Type Department Care Team Description 02/07/2021 Telephone OBGYN - [address] [address] Deepali Suárez MD [address] [place] [phone] REFERRAL Social History Tobacco Use Types Packs/Day Years [...] Telephone Encounter - Jaguar Mustafa M.A. - 02/07/2021 2:00 PM EDT Jacinto Suárez * Telephone Encounter - Marlin Mcclellan 02/07/2021 1:51 PM EDT FYI: patient wanting to let Dr. Suárez know that she has an appointment scheduled on February 08, 2021 at 12pm at [facility] in [facility] for physical therapy to bilat legs and her TMJ . * Telephone Encounter - Marlin Guerrero - 02/07/2021 1:31 PM EDT FYI: documented in this encounter Plan of Treatment Not on file documented as of this encounter Visit Diagnoses Not on filedocumented in this encounter Care Teams Surfboard Maker Relationship Specialty Start Date End Date Deepali Suárez MD PCP - General Internal Medicine 01/28/19 documented as of this encounter
--- OUTSIDE RECORDS SUMMARY | 2025-02-21 15:57 | XMS_ITS | Data Portability ---
Author Organization [facility] - [facility], Allergy Address [address] [place] [address] [address] [place] [address] Assessment Encounter Date Assessment Date Assessment LastModified by Organization Details LastModified Time 09/20/2024 09/20/2024 69-year-old keaton sierra with TMJ presents for evaluation of intermittent left-sided otalgia. Physical exam reveals no identifiable source of otalgia involving the auricle, external auditory canal, or tympanic membrane. Examination was positive for tenderness of the jaw joint and travis-TMJ musculature bilaterally. She has discomfort with opening the mouth. Audiometry demonstrated stable high-frequency neurosensory hearing loss. MRI of the IACs in 2021 was negative for retrocochlear pathology. The patient's auricular discomfort is consistent with temporomandibular joint disorder. I recommended the patient use light massage, warm compresses and anti-inflammatories as tolerated for symptomatic management. Recommend reconsidering medical-grade mouth guard through their dentist if symptoms persist despite supportive management. Patient may benefit from physical therapy for TMJ. We discussed her underlying anxiety may be contributing to her bruxism and tinnitus. Patient will follow-up in office as needed. [email or web address] Not available 09/20/2024 15:47:19 Plan of Treatment Reminders Order Date Submit Date Provider Last Modified By Organization Details Last Modified Time Details Appointments None record ed. Lab None record ed. Referral None record ed. Procedures None record ed. Surgeries None record ed. Imaging None record ed. Medication Orders None record ed. Patient TargetsNo targets recorded. Patient InstructionsNo instructions recorded. Reason for Referral None Reported. Results Created Date Observation Date Name Description Value Unit Range Abnormal Flag Note LastModifiedBy Organization Detail LastModifiedTime 09/21/19 25 audio gram No observ ation record ed. BARCODE Not Available 2024 11:28:52 Result Notes None recorded. Problems Name Problem SNOMED Code Status Onset Date Resolution Date Notes Provider Name and Address Organization Details Recorded Time Nasal congestio n 88581148 Active 2015 Nasal congestio n; Note: Date Diagnosed : 07/21/2015 10:49 AM (R09.81) Not Available [facility] 4 02:13:39 Chronic pharyngit is 186772 Active 2015 Chronic sore throat; Note: Date Diagnosed : 07/21/2015 10:49 AM (J31.2) Not Available [facility] 4 02:15:43 Gastroeso phageal reflux disease without esophagit is 269365896 Active 2015 Gastro-es ophageal reflux disease without esophagit is; Note: Date Diagnosed : 07/21/2015 10:49 AM (K21.9) Not Available [facility] 4 02:14:48 Cough 03769602 Active 2016 Cough, unspecifi ed; Note: Changed from R05 to R05.9 ( 3 11:47 AM) , Date Diagnosed : 02/26/2017 3:05 PM (R05) Not Available [facility] 4 02:14:58 Allergic rhinitis 18042812 Active 2017 Allergic rhinitis: Due to other allergen; Note: Date Diagnosed : 05/01/2017 1:43 PM (477.8) ; Start Date : 8 Other allergic rhinitis; Note: Date Diagnosed : 05/14/2017 2:11 PM (J30.89) Not Available [facility] 4 02:15:38 Disorder of nasal sinus 2932923 Active 2020 Other specified disorders of nose and nasal sinuses; Note: Date Diagnosed : 08/09/2020 1:49 PM (J34.89) Not Available [facility] 4 02:13:33 Disorder of the nose 23184437 Active 2020 Other specified disorders of nose and nasal sinuses; Note: Date Diagnosed : 08/09/2020 1:49 PM (J34.89) Not Available [facility] 4 02:13:33 Pain of left temporoma ndibular joint 16033222566 464730 Active 2020 Arthralgi a of left temporoma ndibular joint; Note: Date Diagnosed : 01/03/2021 2:50 PM (M26.622) Not Available [facility] 4 02:14:15 Sensorine ural hearing loss of bilateral ears 592237979 Active 2020 Sensorine ural hearing loss, bilateral ; Note: Date Diagnosed : 01/18/2021 3:08 PM (H90.3) Not Available [facility] 4 02:13:57 Tinnitus of left ear 76736676364 06 Active 2020 Tinnitus, left ear; Note: Date Diagnosed : 01/18/2021 3:08 PM (H93.12) Not Available [facility] 4 02:15:13 Bilateral temporoma ndibular joint pain 76250566217 071274 Active 2021 Arthralgi a of bilateral temporoma ndibular joint; Note: Date Diagnosed : 06/19/2021 11:53 AM (M26.623) Not Available [facility] 4 02:13:13 Pharyngea l dysphagia 12221144767 105 Active 2022 Dysphagia , pharyngea l phase; Note: Date Diagnosed : 01/21/2023 10:34 AM (R13.13) Not Available [facility] 4 02:13:24 Referred otalgia of left ear 04466489684 38937 Active 2024 MJ HEARN MD [address] [place] [address], [place], [address] , [facility] - [facility] 5 16:10:37 Problem Notes None recorded. Procedures Surgical History Date Name Laterality Status Provider Name and Address Organization Details Recorded Time 09/20/2024 Comp Audio with Tymps - 32131 & 07923 completed DONNA BARR MA, CCC-A [address] [place] [address],[place] [address], [place], [address], [place] - [facility] 09/20/2024 10:06:08 Imaging Results None recorded. Procedure Notes None recorded. Medical Equipment None Reported. Allergies Allergen ID Allergen Name Allergen Category Reaction Reaction Severity Criticality Documentation Date Start Date Code Code System Note Provider Name and Address Organization Details Recorded Time 64507 Substance with sulfonami de structure and antibacte rial mechanism of action (substanc e) medicatio n nausea Not available Not available 09/01/2023 28093 8003 SNOMED React ion: nause a;; Not Available [facility] 4 00:49:59 51306 penicilli n V potassium medicatio n hives Not available Not available 09/01/202314909 5 RxNorm React ion: skin rashe s, hives ;; Not Available [facility] 4 00:50:12 75927 morphine medicatio n Not available Not available Not available 09/01/2023 7052 RxNorm React ion: other react ion, sweat ing, dizzi ness; Not Available [facility] 4 00:50:19 Medications Name Sig Start Date Stop Date Status Note LastModified by Organization Details LastModified Time buspirone 5 mg tablet active Medicati on ID: [id number] B rand Name: buspiron e Send Method: E-Prescr ibed Sub s Allowed: subs OK Medic ationGen ericName : buspiron e Not Available Not Available Not Available prednison e 10 mg tablet 09/17 completed Medicati on ID: [id number] B rand Name: predniso ne Send Method: E-Prescr ibed Sub s Allowed: subs OK Medic ationGen ericName : predniso ne Not Available Not Available Not Available atorvasta tin 20 mg tablet 09/17 completed Medicati on ID: [id number] B rand Name: atorvast atin Sen d Method: E-Prescr ibed Sub s Allowed: subs OK Speci al Instruct ion: TOME KRISHNA TABLETA TODOS LOS D Medic ationGen ericName : atorvast atin Not Available Not Available Not Available azithromy osito 250 mg tablet PLEASE TAKE 2 TAB BY MOUTH FIRST DAY, AND THEN ON PILL DAILY UNTIL FINISHED . active Not Available Not Available No t Available pravastat in 40 mg tablet TOME 1 TABLETA POR V A ORAL TODOS LOS D AL ACOSTARS E active Not Available Not Available No t Available ofloxacin 0.3 % eye drops 06/19 completed Medicati on ID: [id number] D uration Value: 10 Brand Name: ofloxaci n Send Method: E-Prescr ibed Sub s Allowed: subs OK Medic ationGen ericName : ofloxaci n Not Available Not Available Not Available ketotifen 0.025 % (0.035 %) eye drops PONGA KRISHNA GOTA EN LOS DOS OJOS DOS VECES AL JULISSA active Not Available Not Available No t Available ondansetr on HCl 4 mg tablet TOME 1 TABLETA POR V A ORAL CADA 8 HORAS CUANDO SEA NECESARI O PARA LAS N USEAS active Not Available Not Available No t Available famotidin e 40 mg tablet active Medicati on ID: [id number] B rand Name: famotidi ne Send Method: E-Prescr ibed Sub s Allowed: subs OK Medic ationGen ericName : famotidi ne Not Available Not Available Not Available sertralin e 100 mg tablet TAKE 1 TABLET BY MOUTH ONCE A DAY DIRECTED IN ADDITION TO 25MG TABLET, TDD = 125MG active Not Available Not Available No t Available cyanocoba rhea (vit B-12) 1,000 mcg tablet TOME KRISHNA TABLETA POR V A ORAL TODOS LOS D active Not Available Not Available No t Available Nexium 40 mg capsule,d elayed release 06/19 completed Medicati on ID: [id number] D uration Value: 90 Brand Name: Nexium S end Method: E-Prescr ibed Sub s Allowed: subs OK Speci al Instruct ion: TOME KRISHNA CAPSULA POR VIA ORAL DOS VECES AL JULISSA ON AN EMPTY STOMACH Medicati onGeneri cName: Nexium Not Available Not Available Not Available tramadol 50 mg tablet TAKE 1 TABLET BY MOUTH 4 TIMES A DAY NEEDED FOR PAIN active Not Available Not Available No t Available acetamino phen ER 650 mg tablet,ex tended release TOME KRISHNA TABLETA POR V A ORAL CADA OCHO HORAS CUANDO SEA NECESARI O FOR PAIN active Not Available Not Available No t Available ketorolac 0.5 % eye drops PONGA KRISHNA GOTA EN LOS DOS OJOS DOS VECES AL JULISSA active Not Available Not Available No t Available hydrocort isone 2.5 % topical cream with perineal applicato r PLACE 1 INCH RECTALLY 2 TIMES DAILY. active Not Available Not Available No t Available Vitamins B Complex tablet active Medicati on ID: [id number] B rand Name: Vitamins B Complex Send Method: E-Prescr ibed Sub s Allowed: subs OK Speci al Instruct ion: TOME KRISHNA TABLETA DOS VECES AL D A Medica tionGene ricName: Vitamins B Complex Not Available Not Available Not Available pravastat in 80 mg tablet 40 mg every day by oral route. 2024 active Not Available Not Available Not Avai lable amitripty line 25 mg tablet active Medicati on ID: [id number] B rand Name: amitript yline Se nd Method: E-Prescr ibed Sub s Allowed: subs OK Medic ationGen ericName : amitript yline Not Available Not Available Not Available lorazepam 0.5 mg tablet TOME 1 TABLETA POR V A ORAL TODOS LOS D CUANDO SEA NECESARI O active Not Available Not Available No t Available betametha sone valerate 0.1 % topical cream 06/19 completed Medicati on ID: [id number] D uration Value: 10 Brand Name: betameth asone valerate Send Method: E-Prescr ibed Sub s Allowed: subs OK Medic ationGen ericName : betameth asone valerate Not Available Not Available Not Available hyoscyami ne sulfate 0.125 mg tablet TOME KRISHNA TABLETA POR V A ORAL CADA SEIS HORAS CUANDO SEA NECESARI O PARA LOS CALAMBRE S active Not Available Not Available No t Available tacrolimu s 0.1 % topical ointment APPLY TO FACE DOS VECES AL D A CUANDO SEA NECESARI O FOR FLARES active Not Available Not Available No t Available buspirone 10 mg tablet TOME KRISHNA TABLETA DOS VECES AL D A active Not Available Not Available No t Available triamcino lone acetonide 0.025 % topical ointment active Medicati on ID: [id number] B rand Name: triamcin olone acetonid e Send Method: E-Prescr ibed Sub s Allowed: subs OK Speci al Instruct ion: APPLY TO ARMS AND LEGS DOS VECES AL D A CUANDO SEA NECESARI O FOR FLARES M edicatio nGeneric Name: triamcin olone acetonid e Not Available Not Available Not Available Gas Relief Extra Strength 125 mg capsule TAKE 1 CAPSULE BY MOUTH 4 TIMES DAILY NEEDED (GAS) FOR UP TO 180 DAYS. active Not Available Not Available No t Available docusate sodium 100 mg capsule active Medicati on ID: [id number] B rand Name: docusate sodium S end Method: E-Prescr ibed Sub s Allowed: subs OK Speci al Instruct ion: TOME KRISHNA C PSULA DOS VECES AL D A Medica tionGene ricName: docusate sodium Not Available Not Available Not Available gabapenti n 300 mg capsule TOME 1 C PSULA POR V A ORAL AL ACOSTARS E FOR 1 WEEK THEN INCREASE TO 2 CAPS AT BEDTIME active Not Available Not Available No t Available sertralin e 25 mg tablet TAKE 1 TABLET BY MOUTH ONCE A DAY DIRECTED IN ADDITION TO 100MG TABLETS, TOTAL DAILY = 125MG active Not Available Not Available No t Available buspirone 7.5 mg tablet active Medicati on ID: [id number] B rand Name: buspiron e Send Method: E-Prescr ibed Sub s Allowed: subs OK Speci al Instruct ion: TOME KRISHNA TABLETA DOS VECES AL D A Medica tionGene ricName: buspiron e Not Available Not Available Not Available omeprazol e 20 mg capsule,d elayed release TOME 1 C PSULA POR V A ORAL TODOS LOS D active Not Available Not Available No t Available raloxifen e 60 mg tablet 09/17 completed Medicati on ID: [id number] B rand Name: raloxife ne Send Method: E-Prescr ibed Sub s Allowed: subs OK Speci al Instruct ion: TOME KRISHNA TABLETA TODOS LOS D Medic ationGen ericName : raloxife ne Not Available Not Available Not Available montel[facility] st 10 mg tablet TAKE 1 TABLET BY MOUTH AT BEDTIME FOR 360 DAYS. active Not Available Not Available No t Available mupirocin 2 % topical ointment 1 a small amount to affected area 2020 active Medicati on ID: [id number] D uration Value: 7 Prescri bed By Name: ERIK Gentile nd Name: mupiroci n Send Method: E-Prescr ibed Sub s Allowed: subs OK Medic ationGen ericName : mupiroci n Not Available Not Available Not Available estradiol 0.01% (0.1 mg/gram) vaginal cream PLEASE SEE ATTACHED FOR DETAILED DIRECTIO NS active Not Available Not Available No t Available albuterol sulfate HFA 90 mcg/actua tion aerosol inhaler INHALE 2 PUFFS INTO THE LUNGS EVERY 4 HOURS NEEDED FOR COUGH, WHEEZING OR SHORTNES S OF BREATH. active Not Available Not Available No t Available timolol maleate 0.5 % eye drops active Medicati on ID: [id number] B rand Name: timolol maleate Send Method: E-Prescr ibed Sub s Allowed: subs OK Medic ationGen ericName : timolol maleate Not Available Not Available Not Available hydrocort isone 2.5 % topical ointment PLEASE SEE ATTACHED FOR DETAILED DIRECTIO NS active Not Available Not Available No t Available betametha sone dipropion ate 0.05 % topical ointment PLEASE SEE ATTACHED FOR DETAILED DIRECTIO NS active Not Available Not Available No t Available fluticaso ne propionat e 50 mcg/actua tion nasal spray,miguel pension ROCIAR 2 VECES BY NASAL ROUTE A DIARIO active Not Available Not Available No t Available sertralin e 50 mg tablet TAKE 1 TABLET BY MOUTH ONCE A DAY DIRECTED IN ADDITION TO 100MG TABLETS, TOTAL DAILY = 150MG active Not Available Not Available No t Available colestipo l 1 gram tablet TOME 1 TABLETA POR V A ORAL TODOS LOS D active Not Available Not Available No t Available dicyclomi ne 10 mg capsule active Medicati on ID: [id number] B rand Name: dicyclom ine Send Method: E-Prescr ibed Sub s Allowed: subs OK Medic ationGen ericName : dicyclom ine Not Available Not Available Not Available sulindac 200 mg tablet 06/19 completed Medicati on ID: [id number] D uration Value: 30 Brand Name: sulindac Send Method: E-Prescr ibed Sub s Allowed: subs OK Medic ationGen ericName : sulindac Not Available Not Available Not Available loratadin e 10 mg tablet TOME 1 TABLETA POR V A ORAL TODOS LOS D active Not Available Not Available No t Available magnesium 250 mg (as magnesium oxide) tablet TOME KRISHNA TABLETA POR V A ORAL AL ACOSTARS E active Not Available Not Available No t Available neomycin 3.5 mg/g-poly myxin B 10,000 unit/g-de xameth 0.1 % eye oint APPLY TO AFFECTED LID TWICE DAILY active Not Available Not Available No t Available Vitamin B-12 ER 1,000 mcg tablet,ex tended release TOME 1 TABLETA POR V A ORAL TODOS LOS D FOR 30 DAYS active Not Available Not Available No t Available ezetimibe 10 mg tablet active Medicati on ID: [id number] B rand Name: ezetimib e Send Method: E-Prescr ibed Sub s Allowed: subs OK Medic ationGen ericName : ezetimib e Not Available Not Available Not Available cyclobenz aprine 5 mg tablet 06/19 completed Medicati on ID: [id number] D uration Value: 10 Brand Name: cycloben zaprine Send Method: E-Prescr ibed Sub s Allowed: subs OK Medic ationGen ericName : cycloben zaprine Not Available Not Available Not Available Senna Plus 8.6 mg-50 mg tablet active Medicati on ID: [id number] B rand Name: Senna Plus Sen d Method: E-Prescr ibed Sub s Allowed: subs OK Speci al Instruct ion: TAKE 1 TABLET BY MOUTH 4 TIMES DAILY NEEDED FOR CONSTIPA TION FOR UP TO 360 DAYS. Me dication GenericN selena: Senna Plus Not Available Not Available Not Available lactulose 10 gram/15 mL oral solution TAKE 30 ML BY MOUTH 2 TIMES DAILY FOR 30 DAYS. active Not Available Not Available No t Available Flovent HFA 110 mcg/actua tion aerosol inhaler 2 puff 06/19 completed Medicati on ID: [id number] P rescribe d By Name: Andrés Velázquez MD Brand Name: Flovent HFA Send Method: E-Prescr ibed Sub s Allowed: subs OK Medic ationGen ericName : Flovent HFA Not Available Not Available Not Available chlorhexi dine gluconate 0.12 % mouthwash 06/19 completed Medicati on ID: [id number] D uration Value: 15 Brand Name: chlorhex idine gluconat e Send Method: E-Prescr ibed Sub s Allowed: subs OK Speci al Instruct ion: SWISH MOUTH WITH 15 MLS UNDILUTE D FOR 30 SECONDS, THEN SPIT OUT,USE AFT ER BREAKFAS T& BEFORE BED Medi cationGe nericNam e: chlorhex idine gluconat e Not Available Not Available Not Available [id number] 100 gram-sod sulf 7.5 gram-NaCl -KCl-asco rbate-C oral pwdr pack DRINK 8 OZ EVERY 10-15 MINUTES UNTIL SOLUTION IS GONE active Not Available Not Available No t Available Travatan Z 0.004 % eye drops 06/19 completed Medicati on ID: [id number] D uration Value: 30 Brand Name: Travatan Z Send Method: E-Prescr ibed Sub s Allowed: subs OK Speci al Instruct ion: PUT 1 DROP EN LOS DOS OJOS AL ACOSTARS E Medica tionGene ricName: Travatan Z Not Available Not Available Not Available diclofena c 1 % topical gel PLEASE SEE ATTACHED FOR DETAILED DIRECTIO NS active Not Available Not Available No t Available Vitamin D3 50 mcg (2,000 unit) tablet TOME KRISHNA TABLETA POR V A ORAL TODOS LOS D active Not Available Not Available No t Available Vitamin D3 50 mcg (2,000 unit) capsule TOME KRISHNA CAPSULA POR V A ORAL DOS VECES AL D A active Not Available Not Available No t Available Artificia l Tears ([id number] promell-g lycerin) 1 %-0.2 %-0.2 % eye drops APLIQUE KRISHNA GOTA EN EN LOS DOS OJOS CUATRO VECES AL JULISSA active Not Available Not Available No t Available ProAir RespiClic k 90 mcg/actua tion breath activated 06/19 completed Medicati on ID: [id number] B rand Name: ProAir RespiCli ck Send Method: E-Prescr ibed Sub s Allowed: subs OK Medic ationGen ericName : ProAir RespiCli ck Not Available Not Available Not Available Wixela Inhub 250 mcg-50 mcg/dose powder for inhalatio n 03/09 completed Medicati on ID: [id number] B rand Name: Wixela Inhub Se nd Method: E-Prescr ibed Sub s Allowed: subs OK Medic ationGen ericName : Wixela Inhalicia Not Available Not Available Not Available Vitals Date Recorded Body height Body mass index (BMI) Body weight Provider Name and Address Organization Details Last Updated DateTime 09/20/2024 162.56 cm 22.3 kg/m2 29129.01 g Dolores Parsons [place] - [facility] 09/20/2024 10:16:36 Social History Question Answer Notes LastModified by [employer] Details LastModified Time Tobacco Smoking Status Never Smoker Dolores Jaqueline amanda [facility] 09/20/2024 10:16:52 What Type Of Bread Distributor Do You Use? None Information not available 09/20/2024 Do You Have Any Pets? Yes Information not available 09/20/2024 Are You Passively Exposed To Smoke? No Information not available 09/20/2024 Are There Any Smokers In Your House? No Information not available 09/20/2024 Sex: Unknown Functional Status Question Answer Note LastModified by Organizat ion Details LastModified Time Do you use any illicit or recreational drugs? No Information not available 09/20/2024 Do you or have you ever used any other forms of tobacco or nicotine? No Information not available 09/20/2024 What is your level of alcohol consumption? None Information not available 09/20/2024 What type of noise exposure are you exposed to? Other Information not available 09/20/2024 Mental Status None recorded. Family History Nothing Reported. Medical History Condition Response Hearing Loss Y Gynecological HistoryNo gynecological history recorded. Obstetrics History GPAL:G 0 P 0 0 0 0 Past Encounters Encounter ID Performer Location Encounter Start Date Encounter Closed Date Diagnosis/Indication Diagnosis SNOMED-CT Code Diagnosis ICD10 Code Diagnosis IMO Codes Diagnosis Note [id number] DAMARIS BOSWELL PA-C [facility] [address] [address] 09/20/2024 09:31:06 09/20/2024 10:40:11 Sensorineural hearing loss of bilateral ears [id number] H90.3 Audiologic al evaluation results: Right ear: Normal/bor derline normal hearing thru 4000Hz sloping to a mild moderate SNHL with excellent word recognitio n. Left ear: Normal hearing thru 3000Hz sloping to a mild-moder ate SNHL with excellent word recognitio n. Tympanomet ry: Right Ear:Type A Left Ear:Type A Tinnitus of left ear 831 9096440 106 H93.12 Referred o talgia of left ear 7977558097 889944 H92.02 M26.622 M79.11 Health Concerns Section Related Observation LastModified by Organization Detai ls LastModified Time None Recorded Concern Status LastModified by Organization Details LastModified Time None Recorded Advance Directives Directive None Recorded Payers Insurance Date Sequence Insurance Name Policy Number Policy Oswald Covered Member ID Oswald Member ID Guarantor Name 09/20/2024 1 [facility] - DOS ON OR AFTER 2022 - MEDICARE ADVANTAGE [place] (MEDICARE REPLACEMENT/ADV ANTAGE - PPO) Whit Perez [id number] Whit Perez Notes Date Note Type Note Provider Name and Address Organization Details Recorded Time 09/20/2024 text/html ROS as noted in the HPI 69yo female with TMJ presents for evaluation of ear pain. She was last seen in 2022 and recommended to get her mouth guard re-fitted by dentist. The left ear pain is dull with associated lightheadedness. Chronic left-sided tinnitus is loud but stable. Ear pain improves with Tylenol, but this medication upsets her stomach. She cannot tolerate Motrin. No known history of headache or migraine. Reports development of photophobia since glaucoma surgery years ago. History of anxiety and depression. MJ HEARN MD [address] [place] [address], [phone], [facility] - [facility] 09/20/2024 16:11:21 OBGyn Episode No OBEpisode recorded.
--- OUTSIDE RECORDS SUMMARY | 2025-02-21 15:57 | XMS_ITS | Encounter Summary ---
Author Organization [employer] [facility] Address [address] [place] [address] Care Team Providers Care Biostatistics Professor Name Role Phone Leigha Blanton MD Primary Care Provider Un available Deepali Suárez MD Primary Care Provider [phone] Deepali Suárez MD Primary Care Provider Encounter Details Date Type Department Care Team Description 07/24/2017 Release of Information Medical Records [address] [place] [id number] Abstract, Provider Social History Tobacco Use Types Packs/Day Years Used Date Smoking Tobacco: Never Sex Assigned at Date Recorded Not on file Job Start Date Occupation Industry Not on file Not on file Not on file documented as of this encounter Plan of Treatment Not on file documented as of this encounter Visit Diagnoses Not on filedocumented in this encounter Care Teams Biostatistics Professor Relationship Specialty Start Date End Date Leigha Blanton MD PCP - General Internal Medicine 06/23/17 8 Deepali Suráez MD PCP - General Internal Medicine 01/28/19 Deepali Suárez MD PCP - General 10/26/17 01/27/19 documented as of this encounter
--- OUTSIDE RECORDS SUMMARY | 2025-02-21 15:57 | XMS_ITS | Encounter Summary ---
Author Organization [facility] Address [address] [place] [address] Care Team Providers Care Evp Head Of Smg Americas Experience Strategy Name Role Phone Deepali Suárez MD Primary Care Provider +1- [phone] Reason for Visit * Reason Onset Date Comments refill request 09/16/2019 Encounter Details Date Type Department Care Team Description 09/16/2019 Refill Internal Medicine - [address], [address] [place] [address] Deepali Suárez MD [address] [place] [phone] refill request Social History Tobacco Use Types Packs/Day Years [...] encounter Miscellaneous Notes * Telephone Encounter - Concepcion Bhatti M.A. - 09/19/2019 8:34 AM EDT Lab Results Component Value Date NA 141 01/31/2019 K 4.4 01/31/2019 CO2 28 01/31/2019 CL 107 01/31/2019 BUN 22 01/31/2019 CREAT 0.70 01/31/2019 GLU 88 01/31/2019 ALB 4.0 01/31/2019 SGOT 21 01/31/2019 SGPT 25 01/31/2019 TBILI 0.5 01/31/2019 ALKPHOS 100 01/31/2019 TP 7.2 01/31/2019 CA 9.1 01/31/2019 GFR > 60 01/31/2019 Last refill 03/11/2019.map * Telephone Encounter - Alena Christopherue - 09/16/2019 3:56 PM EDT Patient would like script to be: E-PRESCRIBED/FAXED TO PHARMACY WHEN WAS THE PATIENT'S LAST APPOINTMENT IN ADULT MEDICINE? 08/15/2019 WHEN WAS THE LAST TIME THE PATIENT SAW THEIR PCP? Same as above Does patient have an upcoming appointment? Yes 09/19/2019 (THE MEDICATION REQUESTED IS ON THE MED LIST ABOVE) One or some of the medications requested on the MED list Did you check the Pharmacy information above?: YES Patient wants: 30 -day supply Is this a mail order prescription request ? NO If the refill is from a FAXED refill request what is the RX # listed on the fax? N/A Patients current insurance carrier is: [place] / [place] / Product Type: MEDICARE [id number] documented in this encounter Plan of Treatment Not on file documented as of this encounter Visit Diagnoses Not on filedocumented in this encounter Care Teams Evp Head Of Smg Americas Experience Strategy Relationship Specialty Start Date End Date Deepali Suárez MD PCP - General Internal Medicine 01/28/19 documented as of this encounter
--- OUTSIDE RECORDS SUMMARY | 2025-02-21 15:57 | XMS_ITS | Encounter Summary ---
Author Organization [facility] Address [address] [place] [address] Care Team Providers Care Mountain Guide Name Role Phone Deepali Suárez MD Primary Care Provider +1 [phone] Encounter Details Date Type Department Care Team Description 02/04/2021 Tire Fabric Inspector Report Medical Records [address] [place] [address] Social History Tobacco Use Types Packs/Day Years [...] on filedocumented in this encounter Care Teams Mountain Guide Relationship Specialty Start Date End Date Deepali Suárez MD PCP - General Internal Medicine 01/28/19 documented as of this encounter
--- OUTSIDE RECORDS SUMMARY | 2025-02-21 15:57 | XMS_ITS | Encounter Summary ---
Author Organization [facility] [facility] Address [address] [place] [address] Care Team Providers Care Political Geographer Name Role Phone Deepali Suárez MD Primary Care Provider +1- [phone] Reason for Visit * Reason Onset Date Comments Faxed Order 08/02/2020 order date and 07/09/20 Encounter Details Date Type Department Care Team Description 08/02/2020 Telephone Internal Medicine - [address], [address] [place], [place] [phone] Deepali Suárez MD [address] [place] [phone] Faxed Order (order date 05/14/20 and 07/09/20) Social History Tobacco Use Types Packs/Day Years [...] have Coronavirus / COVID-19? No / Unsure 07/20/2020 8:23 AM EDT documented as of this encounter Miscellaneous Notes * Telephone Encounter - Roselyn Brush M.A. - 08/03/2020 3:31 PM EDT Received and on dr suárez folder for signature * Telephone Encounter - Carole Altagracia - 08/02/2020 9:21 AM EDT Received faxed order please sign/date fax to [phone] documented in this encounter Plan of Treatment Not on file documented as of this encounter Visit Diagnoses Not on filedocumented in this encounter Care Teams Political Geographer Relationship Specialty Start Date End Date Deepali Suárez MD PCP - General Internal Medicine 01/28/19 documented as of this encounter
--- OUTSIDE RECORDS SUMMARY | 2025-02-21 15:57 | XMS_ITS | Encounter Summary ---
Author Organization [facility] Address [address] [place] [address] Care Team Providers Care Channel Marketing Program Manager Name Role Phone Deepali Suárez MD Primary Care Provider +1- [phone] Deepali Suárez MD Primary Care Provider [phone] Encounter Details Date Type Department Care Team Description 03/05/2018 Orders Only Adult Medicine [facility] [address] [place] [phone] Tristen Enrique PA-C [address] [place] [address] [phone] Social History Tobacco Use Types Packs/Day Years [...] on filedocumented in this encounter Care Teams Channel Marketing Program Manager Relationship Specialty Start Date End Date Deepali Suráez MD PCP - General Internal Medicine 01/28/19 Deepali Suárez MD PCP - General 10/26/17 01/27/19 documented as of this encounter
--- OUTSIDE RECORDS SUMMARY | 2025-02-21 15:57 | XMS_ITS | Encounter Summary ---
Author Organization [facility] [facility] Address [address] [place] [address] Care Team Providers Care Healthcare Facility Administrator Name Role Phone Deepali Suárez MD Primary Care Provider +1 [phone] Reason for Visit * Reason Onset Date Comments Medication 04/15/2022 Encounter Details Date Type Department Care Team Description 04/15/2022 Telephone Gastroenterology - [address] [place] [address] Romeo, Angeles, DScPAS Medication Social History Tobacco Use Types Packs/Day Years [...] suspected to have Coronavirus/COVID-19? No / Unsure 04/03/2022 1:06 PM EST documented as of this encounter Miscellaneous Notes * Telephone Encounter - Adriana Mcclain - 04/15/2022 12:42 PM EST Received request hyoscyamine (ANASPAZ,LEVSIN) 0.125 MG tablet from [facility] for 90 day supply per insurance. documented in this encounter Plan of Treatment Not on file documented as of this encounter Visit Diagnoses Not on filedocumented in this encounter Care Teams Healthcare Facility Administrator Relationship Specialty Start Date End Date Deepali Suárez MD PCP - General Internal Medicine 01/28/19 documented as of this encounter
--- OUTSIDE RECORDS SUMMARY | 2025-02-21 15:57 | XMS_ITS | Encounter Summary ---
Author Organization [employer] [facility] Address [address] [place] [address] Care Team Providers Care Clothing Designer Name Role Phone Deepali Suárez MD Primary Care Provider [phone] Reason for Visit * Reason Onset Date Comments Medication 06/02/2022 Encounter Details Date Type Department Care Team Description 06/02/2022 Refill Gastroenterology - [place] [address] [facility] [address] [place] [phone] Guy Miller MD [address] [facility] [address] [place] [address] Medication Social History Tobacco Use Types Packs/Day [...] on filedocumented in this encounter Care Teams Clothing Designer Relationship Specialty Start Date End Date Deepali Suárez MD PCP - General Internal Medicine 01/28/19 documented as of this encounter
--- OUTSIDE RECORDS SUMMARY | 2025-02-21 15:57 | XMS_ITS | Encounter Summary ---
Author Organization [facility] Address [address] [place] [address] Care Team Providers Care Drum Cleaner Name Role Phone Deepali Suárez MD Primary Care Provider [phone] [phone] Reason for Visit * Reason Onset Date Comments Faxed Refill 08/24/2019 Encounter Details Date Type Department Care Team Description 08/24/2019 Telephone Internal Medicine - [address], [address] [place] [address] Deepali Suárez MD [address] [place] [phone] Faxed Refill Social History Tobacco Use Types [...] on filedocumented in this encounter Care Teams Drum Cleaner Relationship Specialty Start Date End Date Deepali Suárez MD PCP - General Internal Medicine 01/28/19 documented as of this encounter
--- OUTSIDE RECORDS SUMMARY | 2025-02-21 15:57 | XMS_ITS | Encounter Summary ---
Author Organization [employer] [facility] Address [address] [place] [address] Care Team Providers Care Soap Slabber Name Role Phone Deepali Suárez MD Primary Care Provider +1 [phone] Encounter Details Date Type Department Care Team Description 10/10/2021 Telephone Internal Medicine - [place] [address] [facility], [address] [place] [address] Deepali Suárez MD [address] [place] [phone] Social History Tobacco Use Types Packs/Day [...] suspected to have Coronavirus/COVID-19? No / Unsure 10/10/2021 11:27 AM EDT documented as of this encounter Plan of Treatment Not on file documented as of this encounter Visit Diagnoses Not on filedocumented in this encounter Care Teams Soap Slabber Relationship Specialty Start Date End Date Deepali Suárez MD PCP - General Internal Medicine 01/28/19 documented as of this encounter
--- OUTSIDE RECORDS SUMMARY | 2025-02-21 15:57 | XMS_ITS | Encounter Summary ---
Author Organization [facility] Address [address] [place] [address] Care Team Providers Care Tumbler Machine Operator Name Role Phone Deepali Suárez MD Primary Care Provider [phone] Reason for Visit * Reason Onset Date Comments Faxed Refill 05/14/2020 Encounter Details Date Type Department Care Team Description 05/14/2020 Refill Pulmonology - [place] [address] [facility] [address] [place] [phone] Teri Hawkins, KAREN [address] [facility] [address] [place] [phone] Faxed Refill Social History Tobacco Use Types [...] have Coronavirus / COVID-19? No / Unsure 05/10/2020 10:56 AM EST documented as of this encounter Miscellaneous Notes * Telephone Encounter - Butch Diamond - 05/14/2020 11:46 AM EST Patient would like script to be: E-PRESCRIBED/FAXED TO PHARMACY When was the patients last office visit in pulmonary?: 05.07.2020 When was the last time the patient saw their PCP? Same as above Does patient have an upcoming appointment? Yes 07.11.2020 (THE MEDICATION IS NOT ON THE MED LIST AND IS IDENTIFIED BELOW): {MED LIST:[id number]) Med name: Flovent HFA 110 mcg inhaler Dosage: 110mcg # of tablets: N/a Local pharmacy with request for 90 -day supply Instructions: Per fax- inhale 1 puff into the lungs 2 times daily Did you check the pharmacy information above?: YES Patients current insurance carrier: Payor: u.sit MCR / Plan: [facility] / Product Type: HMO Qpa-gaj-Gbyeguy documented in this encounter Plan of Treatment Not on file documented as of this encounter Visit Diagnoses Diagnosis Mild persistent asthma without complication Unspecified asthma documented in this encounter Care Teams Tumbler Machine Operator Relationship Specialty Start Date End Date Deepali Suárez MD PCP - General Internal Medicine 01/28/19 documented as of this encounter
--- OUTSIDE RECORDS SUMMARY | 2025-02-21 15:57 | XMS_ITS | Encounter Summary ---
Author Organization [facility] Address [address] [place] [address] Care Team Providers Care Tile Setter Supervisor Name Role Phone Deepali Suárez MD Primary Care Provider +1 [phone] Encounter Details Date Type Department Care Team Description 05/08/2021 Training And Development Project Leader Report Medical Records [address] [place] [address] Social History Tobacco Use Types Packs/Day Years [...] have Coronavirus / COVID-19? No / Unsure 05/09/2021 1:29 PM EST documented as of this encounter Plan of Treatment Not on file documented as of this encounter Visit Diagnoses Not on filedocumented in this encounter Care Teams Tile Setter Supervisor Relationship Specialty Start Date End Date Deepali Suárez MD PCP - General Internal Medicine 01/28/19 documented as of this encounter
--- OUTSIDE RECORDS SUMMARY | 2025-02-21 15:57 | XMS_ITS | Encounter Summary ---
Author Organization [facility] Address [address] [place] [address] Care Team Providers Care Ediphone Operator Name Role Phone Deepali Suárez MD Primary Care Provider +1- [phone] Deepali Suárez MD Primary Care Provider +1- [phone] Encounter Details Date Type Department Care Team Description 02/15/2018 Death Clearance Coordinator Report Medical Records [address] [place] [address] Abstract, Provider Social History Tobacco Use Types [...] on filedocumented in this encounter Care Teams Ediphone Operator Relationship Specialty Start Date End Date Deepali Suárez MD PCP - General Internal Medicine 01/28/19 Deepali Suárez MD PCP - General 10/26/17 01/27/19 documented as of this encounter
--- OUTSIDE RECORDS SUMMARY | 2025-02-21 15:57 | XMS_ITS | Encounter Summary ---
Author Organization [facility] [facility] Address [address] [place] [address] Care Team Providers Care Collar Pointer Name Role Phone Deepali Suárez MD Primary Care Provider +1 [phone] Reason for Visit * Reason Comments E-prescribe Rx Request Encounter Details Date Type Department Care Team Description 11/21/2020 Refill Gastroenterology [address] [place] [address] Angeles Walters DScPAS E-prescribe Rx Request Social [...] on filedocumented in this encounter Care Teams Collar Pointer Relationship Specialty Start Date End Date Deepali Suárez MD PCP - General Internal Medicine 01/28/19 documented as of this encounter
--- OUTSIDE RECORDS SUMMARY | 2025-02-21 15:57 | XMS_ITS | Encounter Summary ---
Author Organization [employer] [facility] Address [address] [place] [address] Care Team Providers Care Driver Lifter Of Sanitation Truck Name Role Phone Deepali Suárez MD Primary Care Provider +1 [phone] Reason for Visit * Reason Comments E-prescribe Rx Request Encounter Details Date Type Department Care Team Description 12/12/2020 Refill Gastroenterology [address] [place] [address] Angeles Walters DScPAS E-prescribe Rx Request Social [...] on filedocumented in this encounter Care Teams Driver Lifter Of Sanitation Truck Relationship Specialty Start Date End Date Deepali Suárez MD PCP - General Internal Medicine 01/28/19 documented as of this encounter
--- OUTSIDE RECORDS SUMMARY | 2025-02-21 15:57 | XMS_ITS | Encounter Summary ---
Author Organization [employer] [facility] Address [address] [place] [address] Care Team Providers Care Oven Equipment Repairer Name Role Phone Deepali Suárez MD Primary Care Provider +1 [phone] Encounter Details Date Type Department Care Team Description 09/24/2021 College Athlete Report Medical Records [address] [place] [id number] [place] [address] Orthopedic, Surgeons Social History Tobacco Use Types Packs/Day Years [...] suspected to have Coronavirus/COVID-19? No / Unsure 09/09/2021 10:39 AM EDT documented as of this encounter Plan of Treatment Not on file documented as of this encounter Visit Diagnoses Not on filedocumented in this encounter Care Teams Oven Equipment Repairer Relationship Specialty Start Date End Date Deepali Suárez MD PCP - General Internal Medicine 01/28/19 documented as of this encounter
--- OUTSIDE RECORDS SUMMARY | 2025-02-21 15:57 | XMS_ITS | Encounter Summary ---
Author Organization [employer] [facility] Address [address] [place] [address] Care Team Providers Care Sterile Preparation Technician Name Role Phone Deepali Suárez MD Primary Care Provider +1 [phone] Encounter Details Date Type Department Care Team Description 09/18/2021 Speech And Drama Teacher Report Medical Records [address] [place] [address] Nathen Carrero MD Social History Tobacco Use Types Packs/Day Years [...] on filedocumented in this encounter Care Teams Sterile Preparation Technician Relationship Specialty Start Date End Date Deepali Suárez MD PCP - General Internal Medicine 01/28/19 documented as of this encounter
--- OUTSIDE RECORDS SUMMARY | 2025-02-21 15:57 | XMS_ITS | Encounter Summary ---
Author Organization [facility] Address [address] [place] [address] Care Team Providers Care Armhole Baster Hand Name Role Phone Deepali Suárez MD Primary Care Provider +1- [phone] Deepali Suárez MD Primary Care Provider +1- [phone] Encounter Details Date Type Department Care Team Description 09/06/2018 Orders Only Medical Records [address] [place] [address] Lary Petersen MD Social History Tobacco Use Types Packs/Day [...] Procedure Name Priority Date/Time Associated Diagnosis Comments OUTSIDE SLEEP STUDY Routine 08/26/2018 documented in this encounter Results * OUTSIDE SLEEP STUDY (08/26/2018) Lary Petersen MD PULMONOLOGY documented in this encounter Visit Diagnoses Not on filedocumented in this encounter Care Teams Armhole Baster Hand Relationship Specialty Start Date End Date Deepali Suárez MD PCP - General Internal Medicine 01/28/19 Deepali Suárez MD PCP - General 10/26/17 01/27/19 documented as of this encounter
--- OUTSIDE RECORDS SUMMARY | 2025-02-21 15:57 | XMS_ITS | Encounter Summary ---
Author Organization [facility] Address [address] [place] [address] Care Team Providers Care Operations Professional Name Role Phone Deepali Suárez MD Primary Care Provider +1- [phone] Deepali Suárez MD Primary Care Provider +1- [phone] Encounter Details Date Type Department Care Team Description 12/16/2018 SCAN Medical Records [address] [place] [address] Abstract, Provider Tendonitis Social History Tobacco Use Types Packs/Day Years [...] Priority Date/Time Associated Diagnosis Comments CHG RADEX SHOULDER COMPLETE MINIMUM 2 VIEWS Routine 12/15/2018 Tendonitis documented in this encounter Results * X-RAY EXAM OF SHOULDER, COMPLETE (12/15/2018) Angeles Michel RADIOLOGY documented in this encounter Visit Diagnoses Diagnosis Tendonitis Enthesopathy of unspecified site documented in this encounter Care Teams Operations Professional Relationship Specialty Start Date End Date Deepali Suárez MD PCP - General Internal Medicine 01/28/19 Deepali Suárez MD PCP - General 10/26/17 01/27/19 documented as of this encounter
--- OUTSIDE RECORDS SUMMARY | 2025-02-21 15:57 | XMS_ITS | Patient Health Record ---
Author Organization [facility] Address [address] [place] [address] Care Team Providers Care Machine Oiler Name Role Phone Kamini MARTIN, [facility] Primary Care Provider Unavailab Spencer Wilson Unavailable [phone] Allergies Allergen (clinical drug ingredient) Drug/Non Drug [...] Status Risk Notes Problem Acquired hallux valgus (20512436) Hallux valgus (acquired), left foot (M20.12) Active confirmed Problem Acquired hallux valgus (25087378) Hallux valgus (acquired), right foot (M20.11) Active confirmed Plan Of Treatment Pending Test Test Name Order Date X ray : Foot, left 3V 12/24/2023 X ray : Foot, right 3V 12/24/2023 Insurance Providers Payer Name Payer Address Payer Phone Subscriber Number Group Number Insured Name Patient Relationship to Insured Coverage Start Date Coverage End Date [facility] [employer] Claims [id number] [id number] Whit Perez Self - patient is the insured Medical (General) History Medical History History ICD Code Anxiety Arthritis asthma Back,Hip,and Knee pain Broken bones CAD (Cholesterol) Chicken pox Depression Fibromyalgia Glaucoma Hiatal hernia Numbness Osteoporosis Psoriasis/eczema Reflux Sciatica Vertigo
--- OUTSIDE RECORDS SUMMARY | 2025-02-21 15:57 | XMS_ITS | Encounter Summary ---
Author Organization [employer] [facility] Address [address] [place] [address] Care Team Providers Care Driver Utility Worker Name Role Phone Deepali Suárez MD Primary Care Provider +1 [phone] Encounter Details Date Type Department Care Team Description 12/08/2019 Home Health Certification Medical Records [address] [place] [address] [facility] [address] [place] [address] Social History Tobacco Use Types Packs/Day Years [...] filedocumented in this encounter Care Teams Driver Utility Worker Relationship Specialty Start Date End Date Deepali Suárez MD PCP - General Internal Medicine 01/28/19 documented as of this encounter
--- OUTSIDE RECORDS SUMMARY | 2025-02-21 15:57 | XMS_ITS | Encounter Summary ---
Author Organization [facility] Address [address] [place] [address] Care Team Providers Care Router Machine Operator Name Role Phone Deepali Suárez MD Primary Care Provider +1 [phone] Reason for Visit * Reason Onset Date Comments External Sleep Study Request 12/04/2020 Sle ep study Encounter Details Date Type Department Care Team Description 12/04/2020 Telephone Adult Medicine B - [place] [address] [place] [address] Teri Hawkins, KAREN [address] [facility] [address] [place] [phone] External Sleep Study Request (Sleep study) Social History Tobacco Use Types Packs/Day Years [...] encounter Miscellaneous Notes * Telephone Encounter - Sandra Randhawa - 12/05/2020 1:30 PM EDT Call received from [facility] authorization is on file which was obtained from [facility] Auth #[id number] Valid date 11/02/20-01/26/21 Spoke with [facility]. They will call patient and schedule * Telephone Encounter - Sandra Randhawa - 12/04/2020 11:42 AM EDT Pending with [employer] documented in this encounter Plan of Treatment Not on file documented as of this encounter Visit Diagnoses Not on filedocumented in this encounter Care Teams Router Machine Operator Relationship Specialty Start Date End Date Deepali Suárez MD PCP - General Internal Medicine 01/28/19 documented as of this encounter
--- OUTSIDE RECORDS SUMMARY | 2025-02-21 15:57 | XMS_ITS | Encounter Summary ---
Author Organization [facility] Address [address] [place] [address] Care Team Providers Care Cattle Dehorner Name Role Phone Deepali Suárez MD Primary Care Provider +1 [phone] Reason for Visit * Reason Onset Date Comments Follow-up Appt Unavailable 12/20/2021 Encounter Details Date Type Department Care Team Description 12/20/2021 Telephone Pulmonology - [place] [address] [facility] [address] [place] [phone] Teri Hawkins, KAREN [address] [facility] [address] [place] [phone] Follow-up Appt Unavailable Social History Tobacco Use Types Packs/Day Years [...] suspected to have Coronavirus/COVID-19? No / Unsure 12/20/2021 11:34 AM EDT documented as of this encounter Miscellaneous Notes * Telephone Encounter - Kera Salinas - 12/20/2021 12:41 PM EDT Called patient to book follow up 2 months from now, no answer left voicemail to call back and schedule documented in this encounter Plan of Treatment Not on file documented as of this encounter Visit Diagnoses Not on filedocumented in this encounter Care Teams Cattle Dehorner Relationship Specialty Start Date End Date Deepali Suárez MD PCP - General Internal Medicine 01/28/19 documented as of this encounter
--- OUTSIDE RECORDS SUMMARY | 2025-02-21 15:57 | XMS_ITS | Encounter Summary ---
Author Organization [facility] Address [address] [place] [address] Care Team Providers Care Supervisor Electron Tube Processing Name Role Phone Deepali Suárez MD Primary Care Provider [phone]- [phone] Reason for Referral * EXTERNAL (Routine) - Authorized/Booked Specialty Diagnoses / Procedures Referred By Doreen uribe Referred To Contact Physical Therapy Procedures REFERRAL TO PHYSICAL THERAPY Deepali Suárez MD [address] [place] [phone] [facility] Referral ID Status Reason Start Date Expiration Date V isits Requested Visits Authorized Authorized/B ooked 07/20/2022 10/24/2022 1 1 * EXTERNAL (Routine) - Authorized/Booked Specialty Diagnoses / Procedures Referred By Doreen uribe Referred To Contact Physiatry Procedures REFERRAL TO PHYSIATRY Deepali Suárez MD [address] [place] [phone] Malcolm Carnes DO [address] [facility] [address] [place] [address] Referral ID Status Reason Start Date Expiration Date V isits Requested Visits Authorized Authorized/B ooked 07/20/2022 10/22/2022 1 1 Reason for Visit * Reason Onset Date Comments REFERRAL 07/18/2022 Encounter Details Date Type Department Care Team Description 07/18/2022 Telephone Internal Medicine - [place] [address] [facility], [address] [place] [address] eDepali Suárez MD [address] [place] [phone] REFERRAL Social History Tobacco Use Types [...] suspected to have Coronavirus/COVID-19? No / Unsure 07/03/2022 2:32 PM EDT documented as of this encounter Miscellaneous Notes * Telephone Encounter - Mckinley Romano - 07/21/2022 3:17 PM EDT Pt was contacted and informed of referall been placed. * Telephone Encounter - Deepali Suárez MD - 07/20/2022 8:38 PM EDT I am sending her to physical therapy and also physiatry for the injection * Telephone Encounter - Trudy Dey - 07/18/2022 2:41 PM EDT Patient requesting new referral for Physical therapy. Provider she was seeing before is leaving practice. Patient experiencing scietic nerve problems she would like injections for again. documented in this encounter Plan of Treatment Not on file documented as of this encounter Visit Diagnoses Not on filedocumented in this encounter Care Teams Supervisor Electron Tube Processing Relationship Specialty Start Date End Date Deepali Suárez MD PCP - General Internal Medicine 01/28/19 documented as of this encounter
--- OUTSIDE RECORDS SUMMARY | 2025-02-21 15:57 | XMS_ITS | Encounter Summary ---
Author Organization [id number] Address [address] [place] [address] Care Team Providers Care Bridge Tender Name Role Phone Deepali Suárez MD Primary Care Provider [phone] Reason for Visit * Reason Onset Date Comments Emg 11/15/2020 Encounter Details Date Type Department Care Team Description 11/15/2020 Telephone Physiatry - [address] [address] Goldie Jones MD [address] [place] [address] Dr JIMÉNEZ [place] [id number] Emg Social History Tobacco Use Types Packs/Day Years [...] have Coronavirus / COVID-19? No / Unsure 11/14/2020 9:36 AM EDT documented as of this encounter Miscellaneous Notes * Telephone Encounter - Mona Davis - 11/15/2020 12:40 PM EDT Patient is referred for: Refer for EMG Reason for Test: pain Body Part: Lower Extremities FYI Patient was called on 11/15/20 to schedule a consultation To Determine need for EMG in the Physiatrydepartment. Patient states she does not want to have the EMG test done. She thinks its her veins. She has a hard time standing because the pain is so bad. Please review. Thank you documented in this encounter Plan of Treatment Not on file documented as of this encounter Visit Diagnoses Not on filedocumented in this encounter Care Teams Bridge Tender Relationship Specialty Start Date End Date Deepali Suárez MD PCP - General Internal Medicine 01/28/19 documented as of this encounter
--- OUTSIDE RECORDS SUMMARY | 2025-02-21 15:57 | XMS_ITS | Encounter Summary ---
Author Organization [employer] [facility] Address [address] [place] [address] Care Team Providers Care Drug Coordinator Name Role Phone Deepali Suárez MD Primary Care Provider [phone]- [phone] Deeplai Suárez MD Primary Care Provider [phone]- [phone] Encounter Details Date Type Department Care Team Description 01/08/2018 Flight Engineer Report Medical Records [address] [place] [id number] Smith Jane PA-C Social History Tobacco Use Types Packs/Day Years [...] on filedocumented in this encounter Care Teams Drug Coordinator Relationship Specialty Start Date End Date Deepali Suárez MD PCP - General Internal Medicine 01/28/19 Deepali Suárez MD PCP - General 10/26/17 01/27/19 documented as of this encounter
--- OUTSIDE RECORDS SUMMARY | 2025-02-21 15:57 | XMS_ITS | Encounter Summary ---
Author Organization [facility] Address [address] [place] [address] Care Team Providers Care Building Principal Name Role Phone Leigha Blanton MD Primary Care Provider Un available Deepali Suárez MD Primary Care Provider [phone] Deepali Suárez MD Primary Care Provider Reason for Visit * Reason Onset Date Comments Faxed Order 09/11/2017 Encounter Details Date Type Department Care Team Description 09/11/[address] [address] Leigha Blanton MD Faxed Order Social History Tobacco Use Types Packs/Day Years Used Date Smoking Tobacco: Never Smokeless Tobacco: Never Sex Assigned at Date Recorded Not on file Job Start Date Occupation Industry Not on file Not on file Not on file documented as of this encounter Miscellaneous Notes * Telephone Encounter - Starr Lacy - 09/11/2017 11:58 AM EDT Faxed orders received from [facility], please sign and fax back to [phone]. documented in this encounter Plan of Treatment Not on file documented as of this encounter Visit Diagnoses Not on filedocumented in this encounter Care Teams Building Principal Relationship Specialty Start Date End Date Leigha Blanton MD PCP - General Internal Medicine 06/23/17 8 Deepali Suárez MD PCP - General Internal Medicine 01/28/19 Deepali Suárez MD PCP - General 10/26/17 01/27/19 documented as of this encounter
--- OUTSIDE RECORDS SUMMARY | 2025-02-21 15:57 | XMS_ITS | Encounter Summary ---
Author Organization [employer] [facility] Address [address] [place] [address] Care Team Providers Care Pediatric Clinical Nurse Specialist Name Role Phone Deepali Suárez MD Primary Care Provider [phone] Reason for Visit * Reason Comments E-prescribe Rx Request Encounter Details Date Type Department Care Team Description 07/05/2022 Refill Gastroenterology - [address] [place] [phone] Angeles Walters DScPAS E-prescribe Rx Request Social [...] * Telephone Encounter - Britany Szymanski - 07/07/2022 8:56 AM EDT Dejah- 07/03/22 Nov- 09/24/22 documented in this encounter Plan of Treatment Not on file documented as of this encounter Visit Diagnoses Diagnosis Gastroesophageal reflux disease, unspecified whether esophagitis present documented in this encounter Care Teams Pediatric Clinical Nurse Specialist Relationship Specialty Start Date End Date Deepali Suárez MD PCP - General Internal Medicine 01/28/19 documented as of this encounter
--- OUTSIDE RECORDS SUMMARY | 2025-02-21 15:57 | XMS_ITS | Encounter Summary ---
Author Organization [facility] Address [address] [place] [address] Care Team Providers Care Classified Ad Clerk Name Role Phone Deepali Suárez MD Primary Care Provider [phone] Reason for Visit * Reason Comments E-prescribe Rx Request Encounter Details Date Type Department Care Team Description 12/19/2020 Refill Gastroenterology - [place] [address] [facility] [address] [place] [phone] Angeles Walters DScPAS E-prescribe Rx Request Social [...] encounter Miscellaneous Notes * Telephone Encounter - Louise Jacob M.A. - 12/19/2020 11:49 AM EDT Dejah 11/07/2020 documented in this encounter Plan of Treatment Not on file documented as of this encounter Visit Diagnoses Not on filedocumented in this encounter Care Teams Classified Ad Clerk Relationship Specialty Start Date End Date Deepali Suárez MD PCP - General Internal Medicine 01/28/19 documented as of this encounter
--- OUTSIDE RECORDS SUMMARY | 2025-02-21 15:57 | XMS_ITS | Encounter Summary ---
Author Organization [facility] Address [address] [place] [address] Care Team Providers Care Tray Server Name Role Phone Deepali Suárez MD Primary Care Provider [phone] Encounter Details Date Type Department Care Team Description 02/27/2020 Home Health Certification Medical Records [address] [place] [address] [facility] [address] [place] [address] Social History Tobacco Use Types Packs/Day Years [...] have Coronavirus / COVID-19? No / Unsure 02/17/2020 3:01 PM EDT documented as of this encounter Plan of Treatment Not on file documented as of this encounter Visit Diagnoses Not on filedocumented in this encounter Care Teams Tray Server Relationship Specialty Start Date End Date Deepali Suárez MD PCP - General Internal Medicine 01/28/19 documented as of this encounter
--- OUTSIDE RECORDS SUMMARY | 2025-02-21 15:57 | XMS_ITS | Encounter Summary ---
Author Organization [facility] Address [address] [place] [address] Care Team Providers Care Residence Life Coordinator Name Role Phone Deepali Suárez MD Primary Care Provider [phone] Reason for Visit * Reason Onset Date Comments asthma 09/26/2019 need paperwork f rom [facility]'s office Encounter Details Date Type Department Care Team Description 09/26/2019 Telephone Pulmonology - [place] [address] [facility] [address] [place] [phone] Teri Hawkins APRN [address] [facility] [address] [place] [phone] asthma (need paperwork from [facility]'s office) Social History Tobacco Use Types Packs/Day Years [...] * Telephone Encounter - Anna Chin - 09/28/2019 3:00 PM EDT On your desk. * Telephone Encounter - Anna Chin - 09/27/2019 9:40 AM EDT Faxed request over to Dr Petersen's office. documented in this encounter Plan of Treatment Not on file documented as of this encounter Visit Diagnoses Not on filedocumented in this encounter Care Teams Residence Life Coordinator Relationship Specialty Start Date End Date Deepali Suárez MD PCP - General Internal Medicine 01/28/19 documented as of this encounter
--- OUTSIDE RECORDS SUMMARY | 2025-02-21 15:57 | XMS_ITS | Encounter Summary ---
Author Organization [email or web address] [facility] Address [address] [place] [address] Care Team Providers Care Ostomy Nurse Name Role Phone Deepali Suárez MD Primary Care Provider [phone] Encounter Details Date Type Department Care Team Description 10/23/2021 Mine Promotor Report Medical Records [address] [place] [address] Juve Hall MD Social History Tobacco Use Types Packs/Day [...] on filedocumented in this encounter Care Teams Ostomy Nurse Relationship Specialty Start Date End Date Deepali Suárez MD PCP - General Internal Medicine 01/28/19 documented as of this encounter
--- OUTSIDE RECORDS SUMMARY | 2025-02-21 15:57 | XMS_ITS | Data Portability ---
Author Organization [employer] [facility], [facility] Address [address] [place] [address] Care Team Providers Care Ambulatory Service Representative Name Role Phone HIM CCA OTHER Assessment Encounter Date Assessment Date Assessment LastModified by Organization Details LastModified Time 11/17/2022 11/17/2022 As noted, we jolie seth called to see this patient regarding concerns of chest pain. Evaluation in the field was performed by my cst colleague, as noted above, I provided real-time direction and supervision for this visit. The evaluation revealed 67y F with anxiety and vertigo presenting w atypical CP and lightheadedness. Per patient, this has happened before. 1y ago, rec'd stress test, which was negative. No known CAD, no tobacco or diabetes. No diagnosed HTN. VSS now but severely hypertensive earlier. No current sxs and BP completely normal. EKG NSR without signs of ischemia. Described sxs atypical for angina. Recommend f/u w/ PCP ideally in next 1-2 wks for evaluation. Impression: anxiety with hypertensive episode Plan: precautions, follow up with PCP Primary care, consider follow up later this week if able for BP check, coordinate home BP cuff, consider starting antihypertensive agent Disposition: We discussed the diagnostic uncertainty of home visits and the risk associated with this. In this case, the patient and I felt this to be an acceptable and reasonable amount of risk given the benefit of avoiding an ED visit. We discussed the need to seek care urgently/emergentl y in the setting of any new or worsening serious symptoms, particularly progressively worse chest pain with lightheadedness, shortness of breath atilhou Not available 11/17/2022 17:29:26 04/18/2024 04/18/2024 I have reviewed and agree with the assessment and plan as documented by the cst. I provided real-time medical direction for this encounter and was immediately available to provide additional phone-based assistance as needed. 68F presenting with COVID, symptoms for 4-5 days. Pt with slight congestion, slight decrease in PO appetite. No fever. Pt states her symptoms have improved. She has MDI at home but has not used it recently. O/E: Vitals at baseline. Pt with no cough or respiratory distress. COVID positive. Overall pt is well appearing, no distress noted. Given she is improving and is on day 5 of symptoms, no indication for Paxlovid. Recommend continuing supportive care, including fluids, Tylenol as needed. Red flags discussed, including to monitor for SOB, persistent cough, dehydration or fever. paysola Not available 04/18/2024 20:55:59 Plan of Treatment Reminders Order Date Submit Date Provider Last Modified By Organization Details Last Modified Time Details Appointments None recorded. Lab rapid SARS CoV 2 Ag, QL IA, respiratory specimen [address] [place] [address], [id number] 4 20:55:58 rapid flu (A+B) [address] [place] [address], [id number] 4 20:55:58 Referral None recorded. Procedures None recorded. Surgeries None recorded. Imaging None recorded. Medication Orders None recorded. Patient TargetsNo targets recorded. Patient InstructionsNo instructions recorded. Reason for Referral None Reported. Results Created Date Observation Date Name Description Value Unit Range Abnormal Flag Note LastModifiedBy Organization Detail LastModifiedTime Result Notes None recorded. Medical Equipment None Reported. Allergies Allergen ID Allergen Name Allergen Category Reaction Reaction Severity Criticality Documentation Date Start Date Code Code System Note Provider Name and Address Organization Details Recorded Time 8618 Product containin g penicilli n (product) medicatio n Not available Not available Not available 02/16/2024 48237 8001 SNOMED Not Available [facility] - production 03:45:34 8619 morphine medicatio n Not available Not available Not available 02/16/2024 7052 RxNorm Not Available [facility] - production 03:45:34 Medications Name Sig Start Date Stop Date Status Note LastModified by Organization Details LastModified Time pravastatin 40 mg tablet TOME KRISHNA TABLETA TODOS LOS D active Not Available Not Available No t Available ketotifen 0.025 % (0.035 %) eye drops PONGA KRISHNA GOTA EN LOS DOS OJOS DOS VECES AL D A active Not Available Not Available No t Available polyvinyl alcohol 1.4 % eye drops INSTILL 1 DROP EN LOS DOS OJOS DOS VECES AL D A OR CUANDO SEA NECESARIO active Not Available Not Available No t Available sertraline 100 mg tablet TAKE 2 TABLETS BY MOUTH ONCE A DAY DIRECTED IN ADDITION TO 25MG TABLET active Not Available Not Available Not Available tramadol 50 mg tablet TOME KRISHNA TABLETA POR V A ORAL CADA SEIS HORAS CUANDO SEA NECESARIO PARA EL DOLOR active Not Available Not Available No t Available triamcinolon e acetonide 0.1 % topical cream PLEASE SEE ATTACHED FOR DETAILED DIRECTIONS active Not Available Not Available N ot Available acetaminophe n ER 650 mg tablet,exten ded release TAKE 1 CAPLET ORALLY EVERY 8 HOURS NEEDED FOR PAIN active Not Available Not Available No t Available ketorolac 0.5 % eye drops INSTILL 1 DROP EN LOS DOS OJOS DOS VECES AL D A active Not Available Not Available No t Available hydrocortiso ne 2.5 % topical cream with perineal applicator PLACE 1 INCH RECTALLY 2 TIMES DAILY. active Not Available Not Available No t Available Vitamins B Complex tablet TOME KRISHNA TABLETA TODOS LOS D active Not Available Not Available No t Available lorazepam 0.5 mg tablet TOME KRISHNA TABLETA TODOS LOS D CUANDO SEA NECESARIO active Not Available Not Available No t Available meclizine 25 mg tablet TAKE 1 TABLET BY MOUTH 2 TIMES DAILY NEEDED FOR OTHER. active Not Available Not Available N ot Available buspirone 10 mg tablet TOME KRISHNA TABLETA DOS VECES AL D A active Not Available Not Available No t Available triamcinolon e acetonide 0.025 % topical ointment APPLY TO ARMS AND LEGS DOS VECES AL D A CUANDO SEA NECESARIO FOR FLARES active Not Available Not Available N ot Available magnesium 500 mg (as magnesium oxide) tablet TOME KRISHNA TABLETA TODOS LOS D active Not Available Not Available No t Available Gas Relief Extra Strength 125 mg capsule TOME 2 C PSULAS (250MG) POR V A ORAL FER VECES AL D A active Not Available Not Available No t Available docusate sodium 100 mg capsule TOME KRISHNA C PSULA DOS VECES AL D A active Not Available Not Available No t Available gabapentin 300 mg capsule TAKE 1 TO 2 CAPSULES AT NIGHTTIME, RECOMMENDED INTAKE 1 TO 2 HOURS BEFORE GOING TO BED. active Not Available Not Available No t Available sertraline 25 mg tablet TAKE 1 TABLET BY MOUTH ONCE A DAY DIRECTED IN ADDITION TO 100MG TABLETS, TDD = 225MG active Not Available Not Available Not Available omeprazole 20 mg capsule,curt yed release TOME KRISHNA C PSULA TODOS LOS D active Not Available Not Available No t Available raloxifene 60 mg tablet TOME KRISHNA TABLETA TODOS LOS D active Not Available Not Available No t Available montelukast 10 mg tablet TAKE 1 TABLET BY MOUTH AT BEDTIME FOR 360 DAYS. active Not Available Not Available No t Available estradiol 0.01% (0.1 mg/gram) vaginal cream APPLY ONE GRAM VAGINALLY TWICE/WEEK active Not Available Not Available N ot Available albuterol sulfate HFA 90 mcg/actuatio n aerosol inhaler INHALE 2 PUFFS INTO THE LUNGS EVERY 4 HOURS NEEDED FOR COUGH, WHEEZING OR SHORTNESS OF BREATH. active Not Available Not Available N ot Available betamethason e dipropionate 0.05 % topical ointment APPLY TO ITCHY AREAS ON LEGS TWICE DAILY NEEDED FOR ITCH. DECREASE USE SYMPTOMS IMPROVE. active Not Available Not Available No t Available fluticasone propionate 50 mcg/actuatio n nasal spray,suspen gabriele USE 2 SPRAYS IN EACH NOSTRIL ONCE DAILY.ONCE SYMPTOMS RESOLVED REDUCE TO 1 SPRAY IN EACH NOSTRIL. active Not Available Not Available No t Available loratadine 10 mg tablet TOME KRISHNA TABLETA TODOS LOS D active Not Available Not Available No t Available naproxen 500 mg tablet TOME KRISHNA TABLETA DOS VECES AL D A CON ALIMENTO active Not Available Not Available No t Available oxycodone 5 mg tablet TOME KRISHNA O DOS TABLETAS CADA CUATRO A SEIS HORAS CUANDO SEA NECESARIO PARA EL DOLOR *NO DRIVING* active Not Available Not Available No t Available Laxative (bisacodyl) 5 mg tablet,delay ed release TAKE 2 TABS AT 6PM DIRECTED. active Not Available Not Available No t Available cyclobenzapr ine 5 mg tablet TAKE 1 TABLET BY MOUTH AT BEDTIME NEEDED FOR MUSCLE SPASMS. active Not Available Not Available No t Available coenzyme Q10 200 mg capsule TOME 2 C PSULAS POR V A ORAL TODOS LOS D CON ALIMENTO active Not Available Not Available No t Available Vitamin D3 50 mcg (2,000 unit) tablet TOME KRISHNA TABLETA POR V A ORAL TODOS LOS D active Not Available Not Available No t Available GaviLyte-G 236 gram-22.74 gram-6.74 gram-5.86 gram oral solution PLEASE SEE ATTACHED FOR DETAILED DIRECTIONS active Not Available Not Available N ot Available Wixela Inhub 250 mcg-50 mcg/dose powder for inhalation TOME KRISHNA INHALACI N POR V A ORAL DOS VECES AL D A active Not Available Not Available No t Available Vitals Date Recorded Body height Respiratory rate Body temperature Body weight Oxygen saturation Oxygen saturation in Arterial blood by Pulse oximetry Heart rate Systolic And Diastolic Provider Name and Address Organization Details Last Updated DateTime 3 162.56 cm 18 /min 98.2 [degF] 14535.6 96 g 96 % 96 % 74 /min 119/78 mm[Hg] Not Available [facility] - production 3 17:15:25 Date Recorded Heart rate Respiratory rate Body weight Body height Oxygen saturation Oxygen saturation in Arterial blood by Pulse oximetry Body temperature Systolic And Diastolic Provider Name and Address Organization Details Last Updated DateTime 4 75 /min 16 /min 74368.6 96 g 162.56 cm 97 % 97 % 98.8 [degF] 148/84 mm[Hg] Not Available [employer] 4 20:51:53 Social History None recorded. Functional Status None recorded. Mental Status None recorded. Family History Nothing Reported. Medical History No medical history recorded. Gynecological HistoryNo gynecological history recorded. Obstetrics History GPAL:G 0 P 0 0 0 0 Past Encounters Encounter ID Performer Location Encounter Start Date Encounter Closed Date Diagnosis/Indication Diagnosis SNOMED-CT Code Diagnosis ICD10 Code Diagnosis IMO Codes Diagnosis Note [id number] Yazmin Christianson MD [facility] [address] [place] [phone] 11/17/2022 17:15:09 11/17/2022 17:28:55 [id number] Kamryn Martinez MD [facility] [address] [place] [phone] 04/18/2024 20:51:51 04/19/2024 22:12:41 COVID-19 [id number] U07.1 Health Concerns Section Related Observation LastModified by Organization Savage ls LastModified Time None Recorded Concern Status LastModified by Organization Details LastModified Time None Recorded Advance Directives Directive None Recorded Payers Insurance Date Sequence Insurance Name Policy Number Policy Oswald Covered Member ID Oswald Member ID Guarantor Name 04/18/2024 1 [facility] - DOS ON OR AFTER 2022 - DUAL ELIGIBLE - FDC OPTIONS AND ONE CARE (MEDICARE REPLACEMENT/ADV ANTAGE - HMO) Whit Chris [id number] Whit Perez Notes Date Note Type Note Provider Name and Address Organization Details Recorded Time 11/17/2022 text/html [facility] Nursing Assessment: Reason For Request: Dizziness Chief Complaints: Anxiety, Chest Pain, Headache, Syncope/Dizziness/ Lightheadedness PMH: Heart Disease, Other Allergies: Penicillin, Morphine Comments: Member calling in to place a referral, identified via /name. Member with lightheadedness, slight headache and chest discomfort for 2 days. Member very anxious. Saw her PCP about 3 months ago for these issues, was diagnosed with vertigo and prescribed meclizine for 30 days. Member saw PCP 2 weeks ago but was not having any symptoms. Member encouraged to call her PCP today to make them aware of her symptoms. Member states her BP at 11a was 204/143 HR 112 via a friends automated cuff, she then took an anxiety pill and relaxed, at 2p it was 114/79 HR 74, then at 3:15p was 118/80 HR 83. Member feeling ok now, and would like to be evaluated. [facility] [place]: 3d intermittent chest tightness with dizziness. this happened a year ago and had a stress test, which was negative. evaluated by cardiology. BP was very high today. no nausea, vomiting, diarrhea. no vision changes. this feels similar. this time, the chest pain is lasting a few hours at a time, does come and go. hasn't gotten super bad. can be at rest - other times while walking. so not consistently associated with exertion. no smoking. this am BP was super high - 200/140, HR 112 took a lorazepam - borrowed the cuff from her neighbor. no meds for HTN. Yazmin Christianson MD [address] [facility],[address], [place], [phone], [place] Food RunnerSYEDMoleculin 11/17/2022 17:29:30 04/18/2024 text/html [facility] Nurse Triage Notes (Qiana Flores - RN): Reason For Request: Patient had general flu symptoms, coughing, Daughter was positive for covid 2 days ago. Patient has body pains also and hot. Itchy eyes. Patient Reports: COVID Exposure; Cough Denies: Increased work of breathing/labored with or without fever Unable to speak in full sentences without distress Discoloration of skin -cyanosis Needs to sleep sitting up, can t catch breath Shortness of breath in setting of confusion Cough, fever greater than 2 days Lower extremity swelling History of asthma, increased use of inhaler COPD Sputum increase Shortness of breath with exertion Pain with inspiration Chief Complaints: Cough PMH: Coronary Artery Disease Comments: Patient visiting with daughter on 04/13 who tested positive for Covid the next day. Patient started feeling unwell on Thursday. [place] flushed. No known fever. Occasional cough. Using eye drops for burning/itchy eyes. Denies body aches today. Denies shortness of breath. Taking Tylenol as needed. [employer] Organization Information for [facility] [place] [employer] Legal Name: [employer]. Address: [address] [place] [address], Dianetic Counselor: Bryan Barbosa MD CARLOS No.: [id number] [employer] POC Test Results from [facility] [place] Rapid COVID antigen (20:49:54) COVID: + Rapid influenza antigen (20:49:59) Flu: - .................. .................. .................. .................. .................. .................. .................. ............... [employer] Note From [facility] [place]: [facility] makes pt contact a 68 yo F CC of covid symptoms[facility] obtains consent and uploads electronically. [facility] obtains vital signs. PT test negative for flu, positive for covid. PT explains fridya she began feeling sick with a sometimes dry cough, voice changes due to congestion, and some chills. PT has since improved and tested positive for covid today, confirmed with [facility] covid test. PT explains decreased appetite but still drinking fluids. No nausea, vomiting, sob, or cp noted. PT has been taking at home mucinex and night time cough syrup with some relief. PT has no fever at this time. [facility] contacts [facility] who encourages pt to drink fluids and manage symptoms. PT appears to be towards the end of her covid symptoms. [facility] advises pt that if she develops sob to use her MDI, if she develops a fever not controlled by Tylenol that she should be seen in the ED otherwise she can call us back for reevaluation and continue her at home care. PT understands [facility] clear. .................. .................. .................. .................. .................. .................. .................. ............... [facility] Consulted: Kamryn Martinez .................. .................. .................. .................. .................. .................. .................. ............... Disposition: Fulfilled Kamryn Martinez MD [address] [place] [address],[address], [place], [address], [employer] - [employer] 04/18/2024 21:32:29 OBGyn Episode No OBEpisode recorded.
--- OUTSIDE RECORDS SUMMARY | 2025-02-21 15:57 | XMS_ITS | Encounter Summary ---
Author Organization [employer] [facility] Address [address] [place] [address] Care Team Providers Care Production Laborer Name Role Phone Deepali Suárez MD Primary Care Provider [phone] Encounter Details Date Type Department Care Team Description 04/18/2024 Transfer Records Medical Records [address] [place] [id number] Rhiannon Munson MD Social History Tobacco Use Types Packs/Day [...] on filedocumented in this encounter Care Teams Production Laborer Relationship Specialty Start Date End Date Deepali Suárez MD PCP - General Internal Medicine 01/28/19 documented as of this encounter
--- OUTSIDE RECORDS SUMMARY | 2025-02-21 15:57 | XMS_ITS | Encounter Summary ---
Author Organization [employer] [facility] Address [address] [place] [address] Care Team Providers Care Hot Mill Tin Roller Name Role Phone Deepali Suárez MD Primary Care Provider [phone] Reason for Visit * Reason Onset Date Comments Call From Insurance Co 06/06/2022 Encounter Details Date Type Department Care Team Description 06/06/2022 Telephone Internal Medicine - [address], [address] [place] [address] Deepali Suárez MD [address] [place] [phone] Call From Insurance Co Social History Tobacco Use Types Packs/Day Years [...] Recorded In the last 10 days, have esperanza u been in contact with someone who was confirmed or suspected to have Coronavirus/COVID-19? No / Unsure 05/28/2022 1:02 PM EST documented as of this encounter Miscellaneous Notes * Telephone Encounter - Libra Costa M.A. - 06/11/2022 11:04 AM EST Left vm to call back the office to review patient medicaiton list * Telephone Encounter - Gogo Perdomo - 06/06/2022 1:40 PM EST [facility] insurance called would like a call [employer] @ [phone] to go over medication list. documented in this encounter Plan of Treatment Not on file documented as of this encounter Visit Diagnoses Not on filedocumented in this encounter Care Teams Hot Mill Tin Roller Relationship Specialty Start Date End Date Deepali Suárez MD PCP - General Internal Medicine 01/28/19 documented as of this encounter
--- OUTSIDE RECORDS SUMMARY | 2025-02-21 15:57 | XMS_ITS | Encounter Summary ---
Author Organization [employer] [facility] Address [address] [place] [address] Care Team Providers Care Supplier Manager Name Role Phone Deepali Suárez MD Primary Care Provider [phone] Encounter Details Date Type Department Care Team Description 04/22/2019 Systems Engineer Report Medical Records [address] [place] [address] Melissa Joseph MD Social History Tobacco Use Types Packs/Day [...] on filedocumented in this encounter Care Teams Supplier Manager Relationship Specialty Start Date End Date Deepali Suárez MD PCP - General Internal Medicine 01/28/19 documented as of this encounter
--- OUTSIDE RECORDS SUMMARY | 2025-02-21 15:57 | XMS_ITS | Encounter Summary ---
Author Organization [employer] [facility] Address [address] [place] [address] Care Team Providers Care Real Estate Attorney Name Role Phone Deepali Suárez MD Primary Care Provider [phone] Reason for Visit * Reason Comments E-prescribe Rx Request Encounter Details Date Type Department Care Team Description 03/01/2021 Refill Gastroenterology - [address] [place] [address] Angeles Walters DScPAS E-prescribe Rx Request Social [...] on filedocumented in this encounter Care Teams Real Estate Attorney Relationship Specialty Start Date End Date Deepali Suárez MD PCP - General Internal Medicine 01/28/19 documented as of this encounter
--- OUTSIDE RECORDS SUMMARY | 2025-02-21 15:58 | XMS_ITS | Encounter Summary ---
Author Organization [facility] Address [address] [place] [address] Care Team Providers Care Prepared Foods Service Team Member Name Role Phone Deepali Suárez MD Primary Care Provider [phone] Encounter Details Date Type Department Care Team Description 09/08/2022 Personnel Monitor Report Medical Records [address] [place] [address] Lobito Bocanegra Social History Tobacco Use Types Packs/Day Years [...] on filedocumented in this encounter Care Teams Prepared Foods Service Team Member Relationship Specialty Start Date End Date Deepali Suárez MD PCP - General Internal Medicine 01/28/19 documented as of this encounter
--- OUTSIDE RECORDS SUMMARY | 2025-02-21 15:58 | XMS_ITS | Encounter Summary ---
Author Organization [facility] [facility] Address [address] [place] [address] Care Team Providers Care Parts Cleaner Name Role Phone Deepali Suárez MD Primary Care Provider [phone] Encounter Details Date Type Department Care Team Description 06/23/2019 Home Health Certification Medical Records [address] [place] [address] [facility] Home Care [address] [place] [address] Social History Tobacco Use Types Packs/Day Years [...] on filedocumented in this encounter Care Teams Parts Cleaner Relationship Specialty Start Date End Date Deepali Suárez MD PCP - General Internal Medicine 01/28/19 documented as of this encounter
--- OUTSIDE RECORDS SUMMARY | 2025-02-21 15:58 | XMS_ITS | Encounter Summary ---
Author Organization [employer] [facility] Address [address] [place] [address] Care Team Providers Care Chainstitch Tunnel Elastic Operator Name Role Phone Deepali Suárez MD Primary Care Provider [phone] Encounter Details Date Type Department Care Team Description 05/29/2020 Telephone Gastroenterology - [place] [address] [facility] [address] [place] [address] Angeles Walters DScPAS Social History [...] have Coronavirus / COVID-19? Unable to assess 05/21/2020 11:28 AM EST documented as of this encounter Plan of Treatment Not on file documented as of this encounter Visit Diagnoses Not on filedocumented in this encounter Care Teams Chainstitch Tunnel Elastic Operator Relationship Specialty Start Date End Date Deepali Suárez MD PCP - General Internal Medicine 01/28/19 documented as of this encounter
--- OUTSIDE RECORDS SUMMARY | 2025-02-21 15:58 | XMS_ITS | Encounter Summary ---
Author Organization [facility] [facility] Address [address] [place] [address] Care Team Providers Care Chauffeur Airport Limousine Name Role Phone Deepali Suárez MD Primary Care Provider [phone] Encounter Details Date Type Department Care Team Description 09/17/2022 Orders Only Gastroenterology - [place] [address] [facility] [address] [place] [phone] Angeles Walters DScPAS Lower abdominal pain; Loose stools Social History Tobacco Use Types Packs/Day Years [...] encounter Progress Notes * Marilu Dsouza - 09/21/2022 12:59 PM EDT I will send msg. documented in this encounter Plan of Treatment Not on file documented as of this encounter Procedures Procedure Name Priority Date/Time Associated Diagnosis Comments CT ABD & PELVIS W/CONTRAST Routine 09/08/2022 Lower abdominal pain Loose stools documented in this encounter Results * CT ABD & PELVIS W/CONTRAST (09/08/2022) Angeles Walters DScPAS CT SCANS documented in this encounter Visit Diagnoses Diagnosis Lower abdominal pain Abdominal pain, other specified site Loose stools Abnormal feces documented in this encounter Care Teams Chauffeur Airport Limousine Relationship Specialty Start Date End Date Deepali Suárez MD PCP - General Internal Medicine 01/28/19 documented as of this encounter
--- OUTSIDE RECORDS SUMMARY | 2025-02-21 15:58 | XMS_ITS | Encounter Summary ---
Author Organization [facility] Address [address] [place] [address] Care Team Providers Care Fur Liner Name Role Phone Deepali Suárez MD Primary Care Provider +1 [phone] Encounter Details Date Type Department Care Team Description 04/07/2023 Orders Only Gastroenterology - [place] [address] [facility] [address] [place] [phone] Angeles Walters DScPAS RUQ abdominal pain; Umbilical hernia without obstruction and without gangrene Social History Tobacco Use Types Packs/Day Years [...] encounter Progress Notes * Marilu Dsouza - 04/07/2023 12:57 PM EST Please call patient's daughter that let her know that HIDA scan was not done because patient refused. TY documented in this encounter Plan of Treatment Not on file documented as of this encounter Procedures Procedure Name Priority Date/Time Associated Diagnosis Comments HEPATOBILIARY SYST IMAGING INCLUDING GALLBLADDER CHG Routine 04/06/2023 RUQ abdominal pain Umbilical hernia without obstruction and without gangrene documented in this encounter Results * HEPATOBILIARY SYST IMAGING INCLUDING GALLBLADDER CHG (04/06/2023) Angeles Romeo DScPAS NUCLEAR documented in this encounter Visit Diagnoses Diagnosis RUQ abdominal pain Abdominal pain, right upper quadrant Umbilical hernia without obstruction and without gangrene documented in this encounter Care Teams Fur Liner Relationship Specialty Start Date End Date Deepali Suárez MD PCP - General Internal Medicine 01/28/19 documented as of this encounter
--- OUTSIDE RECORDS SUMMARY | 2025-02-21 15:58 | XMS_ITS | Encounter Summary ---
Author Organization [facility] Address [address] [place] [address] Care Team Providers Care Animal Geneticist Name Role Phone Deepali Suárez MD Primary Care Provider [phone]- [phone] Reason for Referral * EXTERNAL (Priority) - Authorized Specialty Diagnoses / Procedures Referred By Doreen uribe Referred To Contact Nephrology / PEDIATRIC NEUROLOGY Procedures REFERRAL TO NEPHROLOGY Bandar Hanley MD [address] [place] [address] Ext Pedi Neurology Referral ID Status Reason Start Date Expiration Date V isits Requested Visits Authorized [id number] Authorized 08/13/2021 08/13/2022 1 1 Encounter Details Date Type Department Care Team Description 08/13/2021 Orders Only Internal Medicine - [address], [address] [place] [address] Bandar Hanley MD [address] [place], [place] [id number] Social History Tobacco Use Types Packs/Day Years [...] suspected to have Coronavirus/COVID-19? No / Unsure 08/16/2021 9:01 AM EDT documented as of this encounter Plan of Treatment Not on file documented as of this encounter Visit Diagnoses Not on filedocumented in this encounter Care Teams Animal Geneticist Relationship Specialty Start Date End Date Deepali Suárez MD PCP - General Internal Medicine 01/28/19 documented as of this encounter
--- OUTSIDE RECORDS SUMMARY | 2025-02-21 15:58 | XMS_ITS | Encounter Summary ---
Author Organization [facility] Address [address] [place] [address] Care Team Providers Care Document Manager Name Role Phone Deepali Suárez MD Primary Care Provider [phone] [phone] Reason for Visit * Reason Comments E-prescribe Rx Request Encounter Details Date Type Department Care Team Description 03/20/2023 Refill Pulmonology - [place] [address] [phone] Teri Hawkins APRN 175 [facility] 200 [place] [phone] E-prescribe Rx Request Social History Tobacco Use [...] suspected to have Coronavirus/COVID-19? No / Unsure 03/06/2023 1:28 PM EST documented as of this encounter Miscellaneous Notes * Telephone Encounter - Sahra Alejandro - 03/20/2023 10:50 AM EST The original prescription was discontinued on 10/24/2022 by Teri Hawkins APRN for the following reason: Ineffective. Renewing this prescription may not be appropriate. documented in this encounter Plan of Treatment Not on file documented as of this encounter Visit Diagnoses Diagnosis Mild persistent asthma without complication Unspecified asthma documented in this encounter Care Teams Document Manager Relationship Specialty Start Date End Date Deepali Suárez MD PCP - General Internal Medicine 01/28/19 documented as of this encounter
--- OUTSIDE RECORDS SUMMARY | 2025-02-21 15:58 | XMS_ITS | Encounter Summary ---
Author Organization [facility] Address [address] [place] [address] Care Team Providers Care Safety Counselor Name Role Phone Deepali Suárez MD Primary Care Provider [phone] [phone] Reason for Visit * Reason Comments E-prescribe Rx Request Encounter Details Date Type Department Care Team Description 02/19/[address] [facility] [address] [facility] [address] [place] [phone] Angeles Walters DScPAS E-prescribe Rx Request Social [...] suspected to have Coronavirus/COVID-19? No / Unsure 01/29/2023 12:50 PM EDT documented as of this encounter Miscellaneous Notes * Telephone Encounter - Porfirio Gómez M.A. - 02/19/2023 9:22 AM EDT Dejah- 09/22/2022 Nov- unknown documented in this encounter Plan of Treatment Not on file documented as of this encounter Visit Diagnoses Not on filedocumented in this encounter Care Teams Safety Counselor Relationship Specialty Start Date End Date Deepali Suárez MD PCP - General Internal Medicine 01/28/19 documented as of this encounter
--- OUTSIDE RECORDS SUMMARY | 2025-02-21 15:58 | XMS_ITS | Encounter Summary ---
Author Organization [facility] Address [address] [place] [address] Care Team Providers Care Silverware Buffing Machine Operator Name Role Phone Deepali Suárez MD Primary Care Provider [phone]- [phone] Reason for Visit * Reason Onset Date Comments TEST RESULTS 08/06/2021 Encounter Details Date Type Department Care Team Description 08/06/2021 Telephone Pulmonology - [place] 175 [facility] [address] [place] [phone] Deepali Suárez MD [address] [place] [phone] TEST RESULTS Social History Tobacco Use Types Packs/Day Years [...] was confirmed or suspected to have Coronavirus/COVID-19? Unable to assess 07/08/2021 7:30 AM EDT documented as of this encounter Plan of Treatment Not on file documented as of this encounter Visit Diagnoses Not on filedocumented in this encounter Care Teams Silverware Buffing Machine Operator Relationship Specialty Start Date End Date Deepali Suárez MD PCP - General Internal Medicine 01/28/19 documented as of this encounter
--- OUTSIDE RECORDS SUMMARY | 2025-02-21 15:58 | XMS_ITS | Encounter Summary ---
Author Organization [facility] Address [address] [place] [address] Care Team Providers Care Galvanizing Pot Runner Name Role Phone Deepali Suárez MD Primary Care Provider [phone] Encounter Details Date Type Department Care Team Description 06/01/2020 Old Medical Records Medical Records [address] [place] [id number] Abstract, Provider Social History Tobacco Use Types [...] on filedocumented in this encounter Care Teams Galvanizing Pot Runner Relationship Specialty Start Date End Date Deepali Suárez MD PCP - General Internal Medicine 01/28/19 documented as of this encounter
--- OUTSIDE RECORDS SUMMARY | 2025-02-21 15:58 | XMS_ITS | Encounter Summary ---
Author Organization [facility] Address [address] [place] [address] Care Team Providers Care Top Lift Trimmer Name Role Phone Deepali Suárez MD Primary Care Provider [phone] Reason for Visit * Reason Onset Date Comments APPOINTMENT 07/03/2020 Encounter Details Date Type Department Care Team Description 07/03/2020 Telephone Gastroenterology - [address] [place] [address] Angeles Walters DScPAS APPOINTMENT Social History Tobacco Use Types Packs/Day Years [...] have Coronavirus / COVID-19? Unable to assess 07/03/2020 7:38 AM EDT documented as of this encounter Miscellaneous Notes * Telephone Encounter - Louise Jacob M.A. - 07/05/2020 11:43 AM EDT Patient is rescheduled to come into the office * Telephone Encounter - Angeles Walters PA-C - 07/03/2020 12:13 PM EDT Please reschedule... Thank you * Telephone Encounter - Louise Jacob M.A. - 07/03/2020 12:01 PM EDT Hi Juliana please read encounter below , please let me know if you call or want me to reschedule thank you * Telephone Encounter - Juliane Oreilly - 07/03/2020 11:55 AM EDT Patient missed audio call, was at another appointment, also thought her appt. Was 07/04/2020, whichI see was cancelled by center, patient did not know, please call again waiting by phone documented in this encounter Plan of Treatment Not on file documented as of this encounter Visit Diagnoses Not on filedocumented in this encounter Care Teams Top Lift Trimmer Relationship Specialty Start Date End Date Deepali Suárez MD PCP - General Internal Medicine 01/28/19 documented as of this encounter
--- OUTSIDE RECORDS SUMMARY | 2025-02-21 15:58 | XMS_ITS | Encounter Summary ---
Author Organization [facility] Address [address] [place] [address] Care Team Providers Care Electronic Engineering Draftsperson Name Role Phone Deepali Suárez MD Primary Care Provider [phone] Reason for Visit * Reason Comments E-prescribe Rx Request Encounter Details Date Type Department Care Team Description 07/03/2021 Refill Pulmonology - [place] 175 [facility] [address] [place] [phone] Teri Hawkins, KAREN 175 [facility] 200 [place] [phone] E-prescribe Rx Request Social History Tobacco Use [...] have Coronavirus / COVID-19? No / Unsure 06/18/2021 1:22 PM EST documented as of this encounter Plan of Treatment Not on file documented as of this encounter Visit Diagnoses Diagnosis Mild persistent asthma without complication Unspecified asthma PND (post-nasal drip) Postnasal drip documented in this encounter Care Teams Electronic Engineering Draftsperson Relationship Specialty Start Date End Date Deepali Suárez MD PCP - General Internal Medicine 01/28/19 documented as of this encounter
--- OUTSIDE RECORDS SUMMARY | 2025-02-21 15:58 | XMS_ITS | Encounter Summary ---
Author Organization [facility] Address [address] [place] [address] Care Team Providers Care Assistant County Attorney Name Role Phone Deepali Suárez MD Primary Care Provider [phone] Encounter Details Date Type Department Care Team Description 04/28/2019 Release of Information Medical Records [address] [place] [id number] Abstract, Provider Social History Tobacco Use Types [...] on filedocumented in this encounter Care Teams Assistant County Attorney Relationship Specialty Start Date End Date Deepali Suárez MD PCP - General Internal Medicine 01/28/19 documented as of this encounter
--- OUTSIDE RECORDS SUMMARY | 2025-02-21 15:58 | XMS_ITS | Encounter Summary ---
Author Organization [facility] Address [address] [place] [address] Care Team Providers Care Display Director Name Role Phone Deepali Suárez MD Primary Care Provider +1 [phone] Encounter Details Date Type Department Care Team Description 07/22/2021 Geospatial Technologist Report Medical Records [address] [place] [address] Social History Tobacco Use Types Packs/Day Years [...] on filedocumented in this encounter Care Teams Display Director Relationship Specialty Start Date End Date Deepali Suárez MD PCP - General Internal Medicine 01/28/19 documented as of this encounter
--- OUTSIDE RECORDS SUMMARY | 2025-02-21 15:58 | XMS_ITS | Encounter Summary ---
Author Organization [facility] Address [address] [place] [address] Care Team Providers Care Blacksmith Hammer Operator Name Role Phone Deepali Suárez MD Primary Care Provider [phone] Reason for Visit * Reason Onset Date Comments Prior Authorization 03/31/2023 Hepatobiliar y system imaging Encounter Details Date Type Department Care Team Description 03/31/2023 Telephone Adult Medicine [address] [address] Angeles Walters DScPAS Prior Authorization (Hepatobiliary system imaging ) Social History Tobacco Use Types Packs/Day Years [...] encounter Miscellaneous Notes * Telephone Encounter - Cyndee Anglees - 03/31/2023 8:36 AM EST CCA no auth required Order faxed to CCC dept at [facility]. They will contact patient and schedule appt. Notification letter sent documented in this encounter Plan of Treatment Not on file documented as of this encounter Visit Diagnoses Not on filedocumented in this encounter Care Teams Blacksmith Hammer Operator Relationship Specialty Start Date End Date Deepali Suárez MD PCP - General Internal Medicine 01/28/19 documented as of this encounter
--- OUTSIDE RECORDS SUMMARY | 2025-02-21 15:58 | XMS_ITS | Encounter Summary ---
Author Organization [facility] Address [address] [place] [address] Care Team Providers Care Utility Assembler Name Role Phone Deepali Suárez MD Primary Care Provider [phone] Encounter Details Date Type Department Care Team Description 06/21/2021 Orders Only Pulmonology - [place] 175 [facility] [address] [place] [phone] Teri Hawkins, AUTOMOTIVE GLASS INSTALLER [address] [facility] 200 [place] [phone] Obstructive sleep apnea mild AL 9 Social History Tobacco Use Types Packs/Day Years [...] Procedure Name Priority Date/Time Associated Diagnosis Comments SLEEP STUDY-FULL NEURO 16 CHANNEL Routine 06/19/2021 Obstructive sleep apnea mild AL 9 documented in this encounter Results * SLEEP STUDY-FULL NEURO 16 CHANNEL (06/19/2021) Teri Hiltonorlingeri AUTOMOTIVE GLASS INSTALLER PULMONOLOGY documented in this encounter Visit Diagnoses Diagnosis Obstructive sleep apnea mild AL 9 Obstructive sleep apnea (adult) (pediatric) documented in this encounter Care Teams Utility Assembler Relationship Specialty Start Date End Date Deepali Suárez MD PCP - General Internal Medicine 01/28/19 documented as of this encounter
--- OUTSIDE RECORDS SUMMARY | 2025-02-21 15:58 | XMS_ITS | Encounter Summary ---
Author Organization [facility] Address [address] [place] [address] Care Team Providers Care Faculty I On Call Medical Assistant Name Role Phone Deepali Suárez MD Primary Care Provider [phone] Encounter Details Date Type Department Care Team Description 06/07/2021 Storyboard Artist Report Medical Records [address] [place] [address] Bala Machado Social History Tobacco Use Types Packs/Day Years [...] have Coronavirus / COVID-19? No / Unsure 05/21/2021 12:55 PM EST documented as of this encounter Plan of Treatment Not on file documented as of this encounter Visit Diagnoses Not on filedocumented in this encounter Care Teams Faculty I On Call Medical Assistant Relationship Specialty Start Date End Date Deepali Suárez MD PCP - General Internal Medicine 01/28/19 documented as of this encounter
--- OUTSIDE RECORDS SUMMARY | 2025-02-21 15:58 | XMS_ITS | Encounter Summary ---
Author Organization [facility] Address [address] [place] [address] Care Team Providers Care Ore Charger Name Role Phone Deepali Suárez MD Primary Care Provider [phone] Encounter Details Date Type Department Care Team Description 04/05/2020 Home Health Certification Medical Records [address] [place] [address] [facility] [address] [address] Social History Tobacco Use Types Packs/Day Years [...] have Coronavirus / COVID-19? No / Unsure 04/04/2020 10:59 AM EST documented as of this encounter Plan of Treatment Not on file documented as of this encounter Visit Diagnoses Not on filedocumented in this encounter Care Teams Ore Charger Relationship Specialty Start Date End Date Deepali Suárez MD PCP - General Internal Medicine 01/28/19 documented as of this encounter
--- OUTSIDE RECORDS SUMMARY | 2025-02-21 15:58 | XMS_ITS | Encounter Summary ---
Author Organization [facility] Address [address] [place] [address] Care Team Providers Care Belt Builder Helper Name Role Phone Deepali Suárez MD Primary Care Provider [phone] Reason for Visit * Reason Comments E-prescribe Rx Request Encounter Details Date Type Department Care Team Description 06/05/2021 Refill Adult Medicine [address] [address] Angeles Walters DScPAS E-prescribe Rx Request Social [...] on filedocumented in this encounter Care Teams Belt Builder Helper Relationship Specialty Start Date End Date Deepali Suárez MD PCP - General Internal Medicine 01/28/19 documented as of this encounter
--- OUTSIDE RECORDS SUMMARY | 2025-02-21 15:58 | XMS_ITS | Encounter Summary ---
Author Organization [facility] Address [address] [place] [address] Care Team Providers Care Tire Molder Name Role Phone Deepali Suárez MD Primary Care Provider +[phone] Encounter Details Date Type Department Care Team Description 07/01/2021 Mutton Puncher Report Medical Records [address] [place] [address] Social History Tobacco Use Types Packs/Day Years [...] on filedocumented in this encounter Care Teams Tire Molder Relationship Specialty Start Date End Date Deepali Suárez MD PCP - General Internal Medicine 01/28/19 documented as of this encounter
--- OUTSIDE RECORDS SUMMARY | 2025-02-21 15:58 | XMS_ITS | Encounter Summary ---
Author Organization [facility] [place] [facility] Address [address] [place] [address] Care Team Providers Care Museum Curator Name Role Phone Deepali Suárez MD Primary Care Provider [phone] Reason for Visit * Reason Comments E-prescribe Rx Request Encounter Details Date Type Department Care Team Description 05/13/2021 Refill Internal Medicine - [address], [address] [place] [address] Deepali Suárez MD [address] [place] [phone] E-prescribe Rx Request Social History Tobacco [...] encounter Miscellaneous Notes * Telephone Encounter - Irma Morales - 05/16/2021 10:06 AM EST Orders Only on 05/09/2021 Component Date Value ??? WHITE BLOOD COUNT 05/09/2021 5.7 ??? RED BLOOD COUNT 05/09/2021 4.5 ??? Hemoglobin 05/09/2021 13.3 ??? Hematocrit 05/09/2021 41.9 ??? MEAN CORPUSCULAR VOLUME 05/09/2021 93.7 ??? MEAN CORPUSCULAR HEMOGLO* 05/09/2021 29.8 ??? MEAN CORPUSCULAR HGB CONC 05/09/2021 31.7 (A) ??? RED CELL DISTRIBUTION WI* 05/09/2021 12.8 ??? PLT COUNT 05/09/2021 280 ??? MEAN PLATELET VOLUME 05/09/2021 10.2 ??? NRBC % AUTO 05/09/2021 0.0 ??? NEUTROPHILS % 05/09/2021 59.5 ??? LYMPH % 05/09/2021 29.2 ??? MONO % 05/09/2021 8.1 ??? EOS % 05/09/2021 2.1 ??? BASO % 05/09/2021 0.9 ??? IMMATURE GRANULOCYTES % 05/09/2021 0.2 ??? NRBC # AUTO 05/09/2021 0.00 ??? NEUT # 05/09/2021 3.36 ??? LYMPH # 05/09/2021 1.65 ??? MONO # 05/09/2021 0.46 ??? EOS # 05/09/2021 0.12 ??? BASO # 05/09/2021 0.05 ??? IMMATURE GRANULOCYTES # 05/09/2021 0.01 ??? GLUCOSE 05/09/2021 86 ??? Blood Urea Nitrogen 05/09/2021 12 ??? CREAT 05/09/2021 0.79 GLOMERULAR FILTRATION RA* 05/09/2021 > 60 ??? NA 05/09/2021 142 ??? K 05/09/2021 4.0 ??? CL 05/09/2021 108 ??? CARBON DIOXIDE (CO2) 05/09/2021 27 ??? ANION GAP 05/09/2021 7 ??? CALCIUM 05/09/2021 9.7 ??? Albumin 05/09/2021 4.1 ??? SGPT 05/09/2021 36 ??? TOTAL PROTEIN (TP) 05/09/2021 7.5 ??? BILIRUBIN TOTAL 05/09/2021 0.8 ??? SGOT 05/09/2021 22 ??? ALK PHOS 05/09/2021 96 * Telephone Encounter - Annmarie Mccloud - 05/16/2021 9:58 AM EST JOSH 04/01/2021 NOV 05/28/2021 documented in this encounter Plan of Treatment Not on file documented as of this encounter Visit Diagnoses Not on filedocumented in this encounter Care Teams Museum Curator Relationship Specialty Start Date End Date Deepali Suárez MD PCP - General Internal Medicine 01/28/19 documented as of this encounter
--- OUTSIDE RECORDS SUMMARY | 2025-02-21 15:58 | XMS_ITS | Encounter Summary ---
Author Organization [facility] Address [address] [place] [address] Care Team Providers Care Cereal Popper Name Role Phone Deepali Suárez MD Primary Care Provider +1 [phone] Reason for Visit * Reason Onset Date Comments Faxed Refill 05/04/2020 Encounter Details Date Type Department Care Team Description 05/04/2020 Refill Pulmonology - [place] 175 [facility] [address] [place] [phone] Teri Hawkins, KAREN 175 [facility] 200 [place] [phone] Faxed Refill Social History Tobacco Use Types [...] have Coronavirus / COVID-19? No / Unsure 05/07/2020 2:04 PM EST documented as of this encounter Miscellaneous Notes * Telephone Encounter - Butch Diamond - 05/04/2020 8:27 AM EST JOSH- [id number] ? Not indicated when patient should return. 30day documented in this encounter Plan of Treatment Not on file documented as of this encounter Visit Diagnoses Diagnosis PND (post-nasal drip) Postnasal drip documented in this encounter Care Teams Cereal Popper Relationship Specialty Start Date End Date Deepali Suárez MD PCP - General Internal Medicine 01/28/19 documented as of this encounter
--- OUTSIDE RECORDS SUMMARY | 2025-02-21 15:58 | XMS_ITS | Encounter Summary ---
Author Organization [facility] Address [address] [place] [address] Care Team Providers Care Trench Digging Machine Operator Name Role Phone Deepali Suárez MD Primary Care Provider +[phone] Encounter Details Date Type Department Care Team Description 05/27/2019 [facility] Medical Records [address] [place] [address] Guy Miller MD [address] [place] [address] [address] [place] [address] Social History Tobacco Use Types Packs/Day Years [...] on filedocumented in this encounter Care Teams Trench Digging Machine Operator Relationship Specialty Start Date End Date Deepali Suárez MD PCP - General Internal Medicine 01/28/19 documented as of this encounter
== END 2025-02-21 14:01 | disposition home or self-care (01) ==
LOC: HO.RHES 13:08
PROVIDERS: PCP Internal Medicine; Visit Provider Student in an Organized Health Care Education/Training Program
DX: M81.0 Age-related osteoporosis without current pathological fracture (principal); M15.0 Primary generalized (osteo)arthritis; M75.52 Bursitis of left shoulder
CPT/HCPCS: 20610; 99214

== ENCOUNTER → 2025-02-21 13:07 | Outpatient (BNVA) | payer OTHER, SELFPAY | PROVIDERS: PCP Internal Medicine; Visit Provider Student in an Organized Health Care Education/Training Program | DX: M75.52 Bursitis of left shoulder (principal); M25.512 Pain in left shoulder; M15.0 Primary generalized (osteo)arthritis; M81.0 Age-related osteoporosis without current pathological fracture; E55.9 Vitamin D deficiency, unspecified; Z79.899 Other long term (current) drug therapy | CPT/HCPCS: 20610; 99212; J2003; J3301 ==